=== PATIENT | male | born 1980 | race Two or more races ===

== ENCOUNTER 2020-11-06 06:59 | Outpatient (REF) | payer OTHER, SELFPAY ==
[2020-11-06 07:39] LABS: MANUAL DIFF FLAG NO
[2020-11-06 07:44] LABS: Basophils Percent Auto 0.1 % (0-2); Eosinophils Absolute Auto 0.2 X10*3/uL (0.0-0.4); Eosinophils Percent Auto 2.3 % (0-4); Hematocrit 43.2 % (42-52); Imm Gran Abs Auto 0.02 X10*3/uL (0.00-0.03); Imm Gran Pct Auto 0.3 % (0.0-0.4); Lymphocytes Absolute Auto 2.6 X10*3/uL (1.2-4.9); Lymphocytes Percent Auto 35.3 % (20-40); Mean Corpuscular HGB Conc 34.7 g/dl (31.0-36.0); Mean Corpuscular Hemoglobin 32.3 pg (27.0-33.0); Mean Corpuscular Volume 92.9 fL (80-98); Monocytes Absolute Auto 0.7 X10*3/uL (0.1-1.2); Monocytes Percent Auto 8.9 % (2-11); Neutrophils Absolute Auto 3.9 X10*3/uL (2.0-8.3); Neutrophils Percent Auto 53.1 % (45-73); Platelet Count 226 X10*3/uL (160-400); Red Blood Count 4.65 X10*6/uL (4.60-5.80); Red Cell Distribution Width 12.2 % (11.0-16.0); White Blood Count 7.4 X10*3/uL (4.8-10.8)
[2020-11-06 08:03] LABS: Alanine Aminotransferase 37 U/L (0-40); Albumin Level 4.3 g/dL (3.5-5.0); Alkaline Phosphatase 89 U/L (39-117); Anion Gap 13 (12-20); Aspartate Amino Transferase 23 U/L (5-37); Bilirubin Total 0.3 mg/dL (0.0-1.0); Blood Urea Nitrogen 14 mg/dL (9-16); C Reactive Protein 0.14 mg/dL (< or = 0.50); Calcium 9.3 mg/dL (8.4-10.2); Carbon Dioxide 26 mmol/L (22-29); Chloride 104 mmol/L (96-108); Cholesterol 147 mg/dL; Estimated Glomerular Filt Rate > 60; Glucose Fasting 108 mg/dL (60-99); HDL Cholesterol 33 mg/dL; LDL Cholesterol Calculated 69 mg/dl; Potassium 4.1 mmol/L (3.3-5.1); Sodium 139 mmol/L (135-145); Total Protein 7.3 g/dL (6.5-8.0); Triglycerides 227 mg/dL
[2020-11-06 08:07] LABS: D Dimer < 200 NG/ML
[2020-11-06 08:32] LABS: Thyroid Stimulating Hormone 1.91 uIU/mL (0.32-4.0)
== END 2020-11-06 07:00 | disposition home or self-care (01) ==
LOC: HO.LAB 06:59
PROVIDERS: PCP Internal Medicine; Visit Provider Internal Medicine
DX: E78.00 Pure hypercholesterolemia, unspecified (principal); I10 Essential (primary) hypertension; R00.2 Palpitations
CPT/HCPCS: 36415; 80053; 80061; 84443; 85025; 85379; 86140

== ENCOUNTER → 2020-12-09 07:22 | Outpatient (REF) | payer OTHER, SELFPAY ==
--- NOTE | 2020-12-09 07:35 | CA_ITS ---
Transthoracic Echocardiogram Patient (Last, First, Middle): Anjel Tracy J Gender: Male Date of : 1980 Age: 40 Procedure Date: 12/09/2020 Procedure Type: Transthoracic Echocardiogram Location: OP Height: 165.1 cm Weight: 119.3 kg BSA: 2.22 m2 Heart Rate: bpm BP: 120 / 86 mmHg Rip Sawyer: Referring MD: David Iqbal MD Symptoms: R00.2 PALP,I10 HTN Study Quality: Good ECG Rhythm: Sinus Conclusions: - The left ventricular systolic function is normal. The visually estimated ejection fraction is between 60-65%. - No obvious valvular pathology seen on this study. Findings Procedure Information The patient receives contrast. Left Ventricle Normal left ventricular cavity size. There is normal left ventricular wall thickness. The left ventricular systolic function is normal. The visually estimated ejection fraction is between 60-65%. There is no evidence of regional wall motion abnormalities. Diastolic function is normal for age. Right Ventricle Normal right ventricular cavity size and systolic function. Atria The left atrium is normal in size. The right atrium is normal in size. Aortic Valve There is a normal trileaflet aortic valve. There is no aortic valve stenosis. There is no aortic valve regurgitation. Mitral Valve The mitral valve appears normal. There is trace mitral valve regurgitation. There is no mitral valve stenosis. Pulmonic Valve The pulmonic valve was not well visualized. Tricuspid Valve Normal tricuspid valve structure. There is trace tricuspid valve regurgitation. The pulmonary artery systolic pressure is normal. Great Vessels The aortic annulus, sinuses of valsalva, and asc aorta are normal in size. Venous The inferior vena cava is normal in size and collapses greater than 50% with inspiration. Pericardium/Pleural There is no evidence of pericardial effusion. Prior Study Comparison No prior study available for comparison. Recommendations, Care & Conclusions No obvious valvular pathology seen on this study. Measurements 2D Linear Measurements RVIDd: 3.78 RVIDd Index: 1.70 IVSd: 0.86 0.6-0.9/0.6-1.0 cm LVIDd: 4.87 3.9-5.3/4.2-5.9 cm LVIDd Index: 2.19 2.4-3.2/2.2-3.1 cm/m2 LVIDs: 3.14 2.0-3.6 cm LVPWd: 1.32 0.7-1.1 cm Ao Root: 3.20 2.1-3.5 cm LA Diam: 4.20 2.7-3.8/3.0-4.0 cm LAIDs Index: 1.89 1.5-2.3 cm/m2 LV Mass: 244.45 67-162/88-224 g LV Mass Index: 110.11 43-95/49-115 g/m2 LVOT Diam: 2.30 3.0+(-)1.3 cm 2D Systolic Function EF 4C: 61.00 >55% EF 2C: 59.20 >55% EF BiP: 62.30 >55% Mitral Valve MV Pk E: 0.77 MV PK A: 0.59 MV Decel Time: 216.00 E/A: 1.30 E'Lateral: 8.05 E'Medial: 6.53 E/E' Med: 11.80 E/E' Lat: 9.60 Aortic Valve AoV Pk Rigoberto: 1.19 AoV Mn Rigoberto: 0.84 AoV VTI: 0.22 AoV Pk Grad: 6.00 Aov Mn Grad: 3.00 ODIN Cont.VTI: 3.33 LVOT LVOT Pk Rigoberto: 0.99 LVOT Mn Rigoberto: 0.67 LVOT VTI: 0.18 LVOT Pk Grad: 4.00 LVOT Mn Grad: 2.00 LVOT Diam: 2.30 LVOT Area: 4.15 Diastolic Function MV Pk E: 0.77 MV Pk A: 0.59 E/A: 1.30 E'Medial: 6.53 E/E' Med: 11.80 E' Laterial: 8.05 E/E' Lat: 9.60 Tricuspid Valve RA Press: 3.00 Great Vessels Aorta Ao Root-2D: 3.20 2.0-3.7 cm Ao Asc: 3.10 2.1-3.4 cm Ao Arch: 2.30 Updated in Other Vendor System with Status of Final Migel Lee MD electronically signed on 12/10/2020 12:05:43 PM with status of Final
== END ==
LOC: HO.SL 07:22
PROVIDERS: PCP Internal Medicine; Visit Provider Internal Medicine
DX: G47.33 Obstructive sleep apnea (adult) (pediatric) (principal); R06.83 Snoring; R00.2 Palpitations; I10 Essential (primary) hypertension
CPT/HCPCS: 93306; 95806; Q9957

== ENCOUNTER → 2021-01-20 13:15 | Outpatient (BNVA) | payer OTHER, SELFPAY | PROVIDERS: PCP Internal Medicine; Referring Provider Internal Medicine; Visit Provider Internal Medicine Cardiovascular Disease ==

== ENCOUNTER → 2021-02-03 11:12 | Outpatient (REF) | payer OTHER, SELFPAY ==
--- NOTE | 2021-02-03 11:18 | HM_ITS ---
Total monitoring time 14 days. Underlying rhythm is sinus. Minimum heart rate 53/Min. Maximum 163/Min. Average 86/Min. About 27% of the time, right greater than 100/Min. No atrial fibrillation or flutter or pauses or AV blocks. Rare premature supraventricular contractions with a burden of only 0.01%. Some short runs noted with longest episode being 7 beats. There was mention of chest discomfort and palpitations, skipping but not associated with any specific findings on the Holter. MTDD
== END ==
LOC: HO.CARD 11:12
PROVIDERS: Visit Provider Internal Medicine Cardiovascular Disease
DX: R00.2 Palpitations (principal)
CPT/HCPCS: 93225; 93246

== ENCOUNTER → 2021-03-24 12:40 | Outpatient (BNVA) | payer OTHER, SELFPAY | PROVIDERS: PCP Internal Medicine; Referring Provider Internal Medicine; Visit Provider Internal Medicine Cardiovascular Disease ==

== ENCOUNTER 2021-04-17 09:51 | Outpatient (REF) | payer OTHER, SELFPAY ==
[2021-04-17 11:29] LABS: Anion Gap 9 (12-20); Blood Urea Nitrogen 13 mg/dL (9-16); Calcium 9.4 mg/dL (8.4-10.2); Carbon Dioxide 29 mmol/L (22-29); Chloride 106 mmol/L (96-108); Estimated Glomerular Filt Rate > 60; Glucose Random 124 mg/dL (60-115); Sodium 140 mmol/L (135-145)
== END 2021-04-17 09:52 | disposition home or self-care (01) ==
LOC: HO.LAB 09:51
PROVIDERS: PCP Internal Medicine; Visit Provider Internal Medicine
DX: I10 Essential (primary) hypertension (principal)
CPT/HCPCS: 36415; 80048

== ENCOUNTER → 2021-05-02 07:55 | Outpatient (REF) | payer OTHER, SELFPAY ==
--- NOTE | 2021-05-02 08:01 | CA_ITS ---
Acquisition Time: 2021-05-02 07:58:35 Total Exercise Time: 00:08:14 Test Indications: CP Medications: SEE CHART Protocol: TANISHA Max HR: 169 BPM 93% of Pred: 180 BPM Max BP: 148/080 mmHG Max Work Load: 10.1 METS Exercise stress test with exercise 8 min 14 sec of Tanisha protocol, with mild sob, no chest discomfort, with isolated PVC, one ventricular triplet at 7 min of exercise, one ventricular cuplet in recovery, with normotensive response to exercise, without EKG changes meeting criteria for ischemia. Test reviewed with Dr Leal. Referred By: Nilesh Leal Overread By: LINDA BAHENA
== END ==
LOC: HO.CARD 07:55
PROVIDERS: PCP Internal Medicine; Visit Provider Internal Medicine Cardiovascular Disease
DX: R07.89 Other chest pain (principal)
CPT/HCPCS: 93017

== ENCOUNTER 2021-05-29 14:57 | Outpatient (REF) | payer OTHER, SELFPAY ==
[2021-05-29 15:43] LABS: Influenza A PCR NEGATIVE (Negative); Influenza B PCR NEGATIVE (Negative); Resp Syncy Virus RNA Qual PCR NEGATIVE (Negative); SARS COV2 PCR INHOUSE NEGATIVE (Negative)
== END 2021-05-29 14:58 | disposition home or self-care (01) ==
LOC: HO.LNP 14:57
PROVIDERS: Visit Provider Internal Medicine
DX: Z20.822 Contact with and (suspected) exposure to COVID-19 (principal); R51.9 Headache, unspecified; R50.9 Fever, unspecified
CPT/HCPCS: 0241U

== ENCOUNTER 2021-06-16 15:11 | Outpatient (REF) | payer OTHER, SELFPAY ==
[2021-06-16 15:33] LABS: Strep A Nucleic Acid Negative (Negative)
== END 2021-06-16 15:12 | disposition home or self-care (01) ==
LOC: HO.LNP 15:11
PROVIDERS: Visit Provider Internal Medicine
DX: J02.9 Acute pharyngitis, unspecified (principal); R05.9 Cough, unspecified
CPT/HCPCS: 87071; 87147; 87651

== ENCOUNTER 2021-06-22 17:45 | Emergency (ER) | payer OTHER, SELFPAY ==
[2021-06-22 21:14] VITALS: BP 139/92; PULSE 107; RESP 18; TEMP 36.6; O2SAT 97; BMI 44.1
== END 2021-06-23 06:36 | disposition left against medical advice (07) ==
PROVIDERS: Emergency Provider Emergency Medicine; PCP Internal Medicine
DX: J02.0 Streptococcal pharyngitis (principal)
CPT/HCPCS: 99281; 99282

== ENCOUNTER → 2021-06-30 13:46 | Outpatient (BNVA) | payer OTHER, SELFPAY | PROVIDERS: PCP Internal Medicine; Referring Provider Internal Medicine; Visit Provider Nurse Practitioner Family | DX: I10 Essential (primary) hypertension (principal); R00.2 Palpitations; R06.81 Apnea, not elsewhere classified; G47.33 Obstructive sleep apnea (adult) (pediatric) | CPT/HCPCS: 93005 ==

== ENCOUNTER → 2021-07-11 20:00 | Outpatient (REF) | payer OTHER, SELFPAY | LOC: HO.SL 20:00 | PROVIDERS: Visit Provider Internal Medicine Cardiovascular Disease | DX: G47.33 Obstructive sleep apnea (adult) (pediatric) (principal) | CPT/HCPCS: 95811 ==

== ENCOUNTER → 2021-08-25 10:22 | Outpatient (REF) | payer OTHER, SELFPAY ==
--- NOTE | 2021-08-25 10:30 | CA_ITS ---
Transthoracic Echocardiogram Patient (Last, First, Middle): Anjel Tracy J Gender: Male Date of : 1980 Age: 40 Procedure Date: 08/25/2021 Procedure Type: Transthoracic Echocardiogram Location: OP Height: 165.1 cm Weight: 120.2 kg BSA: 2.23 m2 Heart Rate: bpm BP: 134 / 82 mmHg Broadcast Program Director: OSIRIS Referring MD: Alisa Acevedo ENGINEER SECOND ASSISTANTLaith Symptoms: I10 - Essential (primary) hypertension Study Quality: Fair ECG Rhythm: Sinus Conclusions: - The left ventricular systolic function is normal. The calculated ejection fraction is 63% by biplane method. - No obvious valvular pathology seen on this study. Findings Left Ventricle Normal left ventricular cavity size. There is mildly increased left ventricular wall thickness. The left ventricular systolic function is normal. The calculated ejection fraction is 63% by biplane method. There is no evidence of regional wall motion abnormalities. Diastolic function is normal for age. Right Ventricle Normal right ventricular cavity size and systolic function. Atria Both atria are normal in size. Aortic Valve There is a normal trileaflet aortic valve. There is no aortic valve stenosis. There is no aortic valve regurgitation. Mitral Valve The mitral valve appears normal. There is no mitral valve regurgitation. There is no mitral valve stenosis. Pulmonic Valve The pulmonic valve was not well visualized. Tricuspid Valve There is trace tricuspid valve regurgitation. The pulmonary artery systolic pressure is normal. Great Vessels The aortic annulus, sinuses of valsalva, and asc aorta are normal in size. Venous The inferior vena cava is normal in size and collapses greater than 50% with inspiration. Pericardium/Pleural There is no evidence of pericardial effusion. Prior Study Comparison No significant change compared to prior study dated: 12/09/2020. Recommendations, Care & Conclusions No obvious valvular pathology seen on this study. Measurements 2D Linear Measurements IVSd: 1.40 0.6-0.9/0.6-1.0 cm LVIDd: 4.59 3.9-5.3/4.2-5.9 cm LVIDd Index: 2.06 2.4-3.2/2.2-3.1 cm/m2 LVIDs: 2.69 2.0-3.6 cm LVPWd: 1.34 0.7-1.1 cm Ao Root: 3.60 2.1-3.5 cm LA Diam: 3.80 2.7-3.8/3.0-4.0 cm LAIDs Index: 1.70 1.5-2.3 cm/m2 LV Mass: 309.02 67-162/88-224 g LV Mass Index: 138.57 43-95/49-115 g/m2 LVOT Diam: 2.40 3.0+(-)1.3 cm 2D Systolic Function EF 4C: 62.70 >55% EF 2C: 64.40 >55% EF BiP: 63.10 >55% Mitral Valve MV Pk E: 0.74 MV PK A: 0.63 MV Decel Time: 202.00 E/A: 1.20 E'Lateral: 8.27 E'Medial: 7.18 E/E' Med: 10.30 E/E' Lat: 9.00 PHT: 59.00 MVA PHT: 3.73 Decel [place]: 3.66 Aortic Valve AoV Pk Rigoberto: 1.06 AoV Mn Rigoberto: 0.78 AoV VTI: 0.21 AoV Pk Grad: 4.00 Aov Mn Grad: 3.00 ODIN Cont.VTI: 2.84 LVOT LVOT Pk Rigoberto: 0.70 LVOT Mn Rigoberto: 0.49 LVOT VTI: 0.13 LVOT Pk Grad: 2.00 LVOT Mn Grad: 1.00 LVOT Diam: 2.40 LVOT Area: 4.52 Diastolic Function MV Pk E: 0.74 MV Pk A: 0.63 E/A: 1.20 E'Medial: 7.18 E/E' Med: 10.30 E' Laterial: 8.27 E/E' Lat: 9.00 Right Ventricle TAPSE (mm): 23.40 TVS' Rigoberto: 14.80 Tricuspid Valve TR Pk Rigoberto: 1.13 TR Pk Grad: 5.00 Great Vessels Aorta Ao Root-2D: 3.60 2.0-3.7 cm Ao Asc: 3.40 2.1-3.4 cm Ao Arch: 2.60 Updated in Other Vendor System with Status of Final Migel Lee MD electronically signed on 08/25/2021 2:17:37 PM with status of Final
== END ==
LOC: HO.CARD 10:22
PROVIDERS: Visit Provider Nurse Practitioner Family
DX: R07.89 Other chest pain (principal); R00.2 Palpitations; I10 Essential (primary) hypertension; G47.33 Obstructive sleep apnea (adult) (pediatric); R94.31 Abnormal electrocardiogram [ECG] [EKG]
CPT/HCPCS: 93306

== ENCOUNTER 2021-08-25 12:23 | Outpatient (REF) | payer OTHER, SELFPAY ==
[2021-08-25 14:34] LABS: Anion Gap 11 (12-20); Blood Urea Nitrogen 9 mg/dL (9-16); C Reactive Protein 0.19 mg/dL (< or = 0.50); Calcium 9.5 mg/dL (8.4-10.2); Carbon Dioxide 28 mmol/L (22-29); Chloride 105 mmol/L (96-108); D Dimer High Sensitivity < 150 NG/ML; Estimated Glomerular Filt Rate > 60; Glucose Random 98 mg/dL (60-115); Potassium 3.8 mmol/L (3.3-5.1); Sodium 140 mmol/L (135-145)
== END 2021-08-25 12:24 | disposition home or self-care (01) ==
LOC: HO.10HDL 12:23
PROVIDERS: Visit Provider Internal Medicine
DX: I10 Essential (primary) hypertension (principal); R06.02 Shortness of breath; G47.33 Obstructive sleep apnea (adult) (pediatric)
CPT/HCPCS: 36415; 80048; 85379; 86140

== ENCOUNTER → 2021-10-06 13:12 | Outpatient (BNVA) | payer OTHER, SELFPAY | PROVIDERS: PCP Internal Medicine; Visit Provider Internal Medicine | DX: Z13.89 Encounter for screening for other disorder (principal) ==

== ENCOUNTER → 2021-10-20 12:04 | Outpatient (BNVA) | payer OTHER, SELFPAY | PROVIDERS: PCP Internal Medicine; Referring Provider Internal Medicine; Visit Provider Internal Medicine Cardiovascular Disease | DX: Z13.89 Encounter for screening for other disorder (principal) ==

== ENCOUNTER → 2021-11-20 06:50 | Outpatient (REF) | payer OTHER, SELFPAY ==
--- NOTE | 2021-11-20 06:52 | HM_ITS ---
Conclusion: 1. Patient was monitored for total period of 6 days and 18 hours 2. Baseline was normal sinus rhythm with average heart of 84 beats per minute 3. No significant pauses or bradycardia noted 4. Rare PACs noted 5. No patient reported events MTDD
== END ==
LOC: HO.CARD 06:50
PROVIDERS: Visit Provider Internal Medicine Cardiovascular Disease
DX: R07.89 Other chest pain (principal); R00.2 Palpitations
CPT/HCPCS: 93242

== ENCOUNTER 2022-01-15 14:05 | Outpatient (REF) | payer OTHER, SELFPAY ==
[2022-01-15 15:13] LABS: Anion Gap 14 (12-20); Blood Urea Nitrogen 17 mg/dL (9-16); Calcium 9.6 mg/dL (8.4-10.2); Carbon Dioxide 27 mmol/L (22-29); Chloride 106 mmol/L (96-108); Estimated Glomerular Filt Rate > 60; Glucose Random 142 mg/dL (60-115); Magnesium 2.1 mg/dL (1.6-2.6); Potassium 3.7 mmol/L (3.3-5.1); Sodium 143 mmol/L (135-145)
[2022-01-15 15:38] LABS: Free T4 (Free Thyroxine) 0.84 ng/dL (0.71-1.85)
== END 2022-01-15 14:06 | disposition home or self-care (01) ==
LOC: HO.LAB 14:05
PROVIDERS: PCP Internal Medicine; Visit Provider Internal Medicine
DX: I10 Essential (primary) hypertension (principal); R00.2 Palpitations
CPT/HCPCS: 36415; 80048; 83735; 84439

== ENCOUNTER 2022-03-16 10:00 | Outpatient (RCR) | payer OTHER, SELFPAY ==
[2022-03-13 08:06] VITALS: BP 133/83; PULSE 71; O2SAT 96
--- NOTE | 2022-03-13 15:13 | MHC.PT.EP ---
[facility] [place] Office [place] Office [place] Office [address] Bijan Peterson [address] [phone] F: [phone] F: [phone] F: [phone] F: [phone] Physical Therapy Plan of Care Date of Evaluation: Date of Surgery: Diagnosis: LEFT SI DYSFUNCTION Assessment: 41 YO MALE REF TO PT FOR LEFT SI DYSFUNCTION- ACUTE ONSET ON 03/08/22. 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 OBJECTIVE FINDINGS: DECR TRUNK AND HIP MOB, DECR POSTURAL AWARENESS, LIMITED FUNCT SQUAT, (+) SOFT TISSUE TENSION-> ESPEC TIGHT THOR PS MM, AND STABBING PAIN IN HIS LEFT SI Jt/ GLUTE AREA. FUNCTIONAL LIMITATIONS INCLUDE DECR ABILITY TO SQUAT, MOVE FAST, WALK FAST, BENDING/ LIFTING, AND REACHING/ STRETCHING. Pt IS A GOOD PT CANDIDATE TO ADDRESS THE ABOVE FINDINGS-> EASE SOFT TISSUE IRRIT, PAIN MGMT, DEV A PROGRESSIVE HEP AND SELF-SX MGMT TECHN TO ASSIST Pt IN HIS GOAL OF RTW/ REG DUTY. Frequency and Duration: The patient will be seen 2 x WK X 4 wks Short Term Goals: *DECR Pt'S LEFT LS/SI Jt PAIN TO 2-3/10 *Pt INDEP W POSTURAL SELF CORRECT TECHN AND DEMON PROPER BODY MECH W 2:2 SIMUL WORK TASKS TO REDUCE THORACOLS TISSUE TENSION *IMPROVE HIP FLEXIB -> FUNCTIONAL SQUAT [facility] Goals: *Pt INDEP W PROGR HEP AND SELF SX MGMT TECHN *Pt RESUME REG ADLs AND RTW EVIDENT IN IMPROVED OSWESTRY SCORE *Pt DEMON GAIT (REGULAR, FAST PACE) ON TREADMILL, W/O EXACERBATION OF Lt SI Jt SXS Treatment Plan: Modalities to reduce pain, spasms and effusion. Manual therapy to restore motion and function. Therapeutic exercise to improve strength and flexibility. Neuromuscular re-education for posture and balance. Therapeutic activities to return to functional activities of daily living. Electronically signed by: Karo Aquino,PT Please sign and return to therapist. Thank you for your referral.
--- NOTE | 2022-03-26 13:14 | MHC.PT.DC ---
[facility] [place] Office [place] Office [place] Office [address] Bijan Peterson [address] [phone] F: [phone] F: [phone] F: [phone] F: [phone] Physical Therapy Discharge Report Diagnosis: LEFT SI DYSFUNCTION Date of Surgery: Date of Evaluation: 03/13/22 Date of Discharge: 03/26/22 Treatments to Date: 2 Cancellations to Date: 3 No Shows to Date: Discharge Status: Achieved Goals Improved Function Patient Elected to Stop Discharge Summary: Pt PHONED AND NOTED HE WAS FEELING BETTER AND CURRENTLY HAS NO TIME FOR PT- HE REQUESTED D/C AT THIS TIME. DUE TO THE PHONE CALL D/C, WE WERE UNABLE TO PERFORM A FORMAL D/C ASSESSMENT . Electronically signed by: Karo Aquino,PT Please sign and return to therapist. Thank you for your referral.
== END 2022-03-26 13:16 | disposition home or self-care (01) ==
LOC: HO.PT 10:00
PROVIDERS: PCP Internal Medicine; Visit Provider Internal Medicine
DX: M53.3 Sacrococcygeal disorders, not elsewhere classified (principal)
CPT/HCPCS: 97110; 97140; 97162

== ENCOUNTER 2022-04-27 11:32 | Outpatient (REF) | payer OTHER, SELFPAY ==
[2022-04-27 13:38] LABS: MANUAL DIFF FLAG NO
[2022-04-27 13:41] LABS: Basophils Percent Auto 0.1 % (0-2); Eosinophils Absolute Auto 0.1 X10*3/uL (0.0-0.4); Eosinophils Percent Auto 0.9 % (0-4); Hematocrit 43.3 % (42.0-52.0); Hemoglobin 15.1 g/dl (14.0-18.0); Imm Gran Abs Auto 0.02 X10*3/uL (0.00-0.03); Imm Gran Pct Auto 0.2 % (0.0-0.4); Lymphocytes Absolute Auto 2.1 X10*3/uL (1.2-4.9); Lymphocytes Percent Auto 24.6 % (20-40); Mean Corpuscular HGB Conc 34.9 g/dl (31.0-36.0); Mean Corpuscular Hemoglobin 31.7 pg (27.0-33.0); Monocytes Absolute Auto 0.7 X10*3/uL (0.1-1.2); Monocytes Percent Auto 8.3 % (2-11); Neutrophils Absolute Auto 5.6 x10*3/uL (2.0-8.3); Neutrophils Percent Auto 65.9 % (45-73); Platelet Count 235 X10*3/uL (160-400); Red Blood Count 4.76 X10*6/uL (4.60-5.80); Red Cell Distribution Width 12.3 % (11.0-16.0); White Blood Count 8.5 X10*3/uL (4.8-10.8)
[2022-04-27 13:54] LABS: Estimated Average Glucose 128 mg/dL; Hemoglobin A1c % 6.1 %
[2022-04-27 13:55] LABS: Alanine Aminotransferase 33 U/L (0-40); Albumin Level 4.5 g/dL (3.5-5.0); Alkaline Phosphatase 70 U/L (39-117); Anion Gap 16 (12-20); Aspartate Amino Transferase 23 U/L (5-37); Bilirubin Total 0.4 mg/dL (0.0-1.0); Blood Urea Nitrogen 17 mg/dL (9-16); Calcium 9.5 mg/dL (8.4-10.2); Carbon Dioxide 25 mmol/L (22-29); Chloride 102 mmol/L (96-108); Cholesterol 155 mg/dL; Estimated Glomerular Filt Rate > 60; Glucose Fasting 103 mg/dL (60-99); HDL Cholesterol 40 mg/dL; LDL Cholesterol Calculated 97 mg/dl; Potassium 3.9 mmol/L (3.3-5.1); Sodium 139 mmol/L (135-145); Total Protein 7.6 g/dL (6.5-8.0); Triglycerides 94 mg/dL
== END 2022-04-27 11:33 | disposition home or self-care (01) ==
LOC: HO.10HDL 11:32
PROVIDERS: Visit Provider Internal Medicine
DX: Z00.00 Encounter for general adult medical examination without abnormal findings (principal); R73.03 Prediabetes
CPT/HCPCS: 36415; 80053; 80061; 83036; 85025

== ENCOUNTER → 2022-08-05 13:27 | Outpatient (BNVA) | payer OTHER, SELFPAY | PROVIDERS: PCP Internal Medicine; Visit Provider Internal Medicine | DX: Z13.89 Encounter for screening for other disorder (principal) ==

== ENCOUNTER 2022-08-11 10:10 | Outpatient (REF) | payer OTHER, SELFPAY ==
[2022-08-11 11:22] LABS: Estimated Average Glucose 128 mg/dL; Hemoglobin A1c % 6.1 %
[2022-08-11 12:02] LABS: Anion Gap 12 (12-20); Blood Urea Nitrogen 14 mg/dL (9-16); Calcium 9.2 mg/dL (8.4-10.2); Carbon Dioxide 26 mmol/L (22-29); Chloride 104 mmol/L (96-108); Estimated Glomerular Filt Rate > 60; Glucose Random 155 mg/dL (60-115); Potassium 3.4 mmol/L (3.3-5.1); Sodium 139 mmol/L (135-145)
== END 2022-08-11 10:11 | disposition home or self-care (01) ==
LOC: HO.10HDL 10:10
PROVIDERS: Visit Provider Internal Medicine
DX: I10 Essential (primary) hypertension (principal); R73.03 Prediabetes
CPT/HCPCS: 36415; 80048; 83036

== ENCOUNTER 2022-11-30 10:04 | Outpatient (REF) | payer OTHER, SELFPAY ==
[2022-11-30 11:43] LABS: Estimated Average Glucose 126 mg/dL
[2022-11-30 11:58] LABS: Alanine Aminotransferase 30 U/L (0-40); Albumin Level 4.3 g/dL (3.5-5.0); Alkaline Phosphatase 72 U/L (39-117); Anion Gap 10 (12-20); Aspartate Amino Transferase 18 U/L (5-37); Bilirubin Total 0.5 mg/dL (0.0-1.0); Blood Urea Nitrogen 12 mg/dL (9-16); Calcium 9.3 mg/dL (8.4-10.2); Carbon Dioxide 28 mmol/L (22-29); Chloride 107 mmol/L (96-108); Cholesterol 147 mg/dL; Estimated Glomerular Filt Rate > 60; Glucose Fasting 115 mg/dL (60-99); HDL Cholesterol 37 mg/dL; LDL Cholesterol Calculated 92 mg/dl; Potassium 3.7 mmol/L (3.3-5.1); Sodium 141 mmol/L (135-145); Total Protein 7.2 g/dL (6.5-8.0); Triglycerides 94 mg/dL
== END 2022-11-30 10:05 | disposition home or self-care (01) ==
LOC: HO.10HDL 10:04
PROVIDERS: Visit Provider Internal Medicine
DX: I10 Essential (primary) hypertension (principal); E78.00 Pure hypercholesterolemia, unspecified; R73.01 Impaired fasting glucose
CPT/HCPCS: 36415; 80053; 80061; 83036

== ENCOUNTER 2023-01-27 12:03 | Outpatient (REF) | payer OTHER, SELFPAY ==
--- NOTE | ~2023-01-27 | XR_ITS ---
EXAMINATION: XR FOOT, LEFT CLINICAL INFORMATION: Bilateral foot pain COMPARISON: Same-day right foot TECHNIQUE: AP, lateral, and oblique views of the left foot. FINDINGS: The bones are intact. No fracture. Alignment is anatomic. Joint spaces are maintained. Tiny calcification at the insertion of the Achilles tendon. XR/XR foot LT min 3V IMPRESSION: Tiny calcification at the insertion of the Achilles tendon.
--- NOTE | ~2023-01-27 | XR_ITS ---
EXAMINATION: XR FOOT, RIGHT CLINICAL INFORMATION: Bilateral foot pain COMPARISON: Same-day left foot TECHNIQUE: AP, lateral, and oblique views of the right foot. FINDINGS: The bones are intact. No fracture. Alignment is anatomic. Minimal degenerative change of the first metatarsophalangeal joint. Tiny Achilles enthesophyte. XR/XR foot RT min 3V IMPRESSION: Minimal degenerative change of the first metatarsophalangeal joint.
== END 2023-01-27 12:04 | disposition home or self-care (01) ==
LOC: HO.XRAY 12:03
PROVIDERS: PCP Internal Medicine; Visit Provider Internal Medicine
DX: M24.174 Other articular cartilage disorders, right foot (principal); M65.872 Other synovitis and tenosynovitis, left ankle and foot; M76.61 Achilles tendinitis, right leg
CPT/HCPCS: 73630

== ENCOUNTER 2023-01-27 12:36 | Outpatient (AMB) | payer OTHER, SELFPAY ==
--- NOTE | 2023-01-27 13:15 | A.OFFVIS_ITS ---
Intake Vital Signs 01/27/23 13:16 Height 5 ft 5 in Weight 266 lb BMI 44.3 BP 110/64 Blood Pressure Location Lt radial Position Sitting Pulse 76 Pulse Source Pulse Oximeter Pulse Oximetry (%) 96 Oxygen Delivery Method Room Air Intake Visit Reasons: Obstructive sleep apnea Intake Note: pt is here for follow up of JONO, he states he cannot maintain a steady sleep,and once up he stays up. Allergies No Known Allergies Allergy (Verified 01/27/23 13:23) Medication List - Last Reconciled 01/27/23 by Behzad Moralez MD amlodipine 5 mg PO DAILY atorvastatin 10 mg PO DAILY buspirone 10 mg PO BID PRN hydrochlorothiazide 25 mg PO DAILY zolpidem 10 mg PO BEDTIME Do you need a note to return to daycare/school/sports/work: No HPI Obstructive sleep apnea HPI Details THIS 42 YEARS OLD GENTLEMAN GROSSLY OBESE AND KNOWN CASE OF OBSTRUCTIVE SLEEP APNEA, HE IS HERE FOR HIS. 6 MONTHS FOLLOW-UP HE IS A REGULAR USER OF CPAP, AND IS BENEFITING. HIS MAIN ISSUE IS THAT HE CANNOT SLEEP MORE THAN 4-5 HOURS. LATELY HE WAS PRESCRIBED ZOLPIDEM. 10 MG BY HIS PCP HE TOOK 1 NIGHT AND SLEPT MORE THAN 7 HOURS, BUT COMPLAINS THAT HE HAD HANGOVER IN THE MORNING. SO HE STOPPED USING ZOLPIDEM. WEIGHT ALFARO HAS NOT MADE ANY PROGRESS, RATHER HAS PUT ON A FEW LB SINCE LAST VISIT. HIS PROBLEM IS THAT HE CANNOT WALK MUCH SHOULD. HE HAS NOT JOINED ANY WEIGHT MANAGEMENT PROGRAM. [facility] Medical History Acid reflux HTN (hypertension) Hypercholesteremia Insomnia Morbid obesity Obstructive sleep apnea Surgical History No pertinent past surgical history Family History Father CAD (coronary artery disease) Mother Hypertension Sister Multiple sclerosis Social History Alcohol intake: current Alcohol intake frequency: holidays/special occasions only Patient Tobacco Use Status: Never used Tobacco Review of Systems Const All systems reviewed & are unremarkable except as noted in HPI and below Eyes Reports no additional complaints ENT Reports no additional complaints Card Denies chest pain, Denies irregular heart rhythm and Reports leg edema (Improved after taking HCTZ) Resp Reports no additional complaints GI Reports heartburn (Controlled) Reports no additional complaints Musc Reports no additional complaints Skin/Breast Reports system reviewed and no additional complaints, except as documented Neuro Reports no additional complaints Endo Reports no additional complaints Darius/Lymph Reports no additional complaints Aller/Immun Reports no additional complaints Physical Exam Vital Signs: Last Vital Signs Pulse 76 01/27/23 13:16 BP 110/64 01/27/23 13:16 Pulse Ox 96 01/27/23 13:16 Oxygen Delivery Method Room Air 01/27/23 13:16 BMI result Body Mass Index 44.3 Const Other: This gentleman is morbidly obese with very round face, and short neck. General: comfortable, no acute distress, alert and awake Orientation/consciousness: patient oriented x3 HEENT Head: Yes normal to inspection General nose exam: No nasal polyps present and No nasal discharge present Face and sinus: Yes sinuses nontender Mouth: oropharynx abnormals (His chin is slightly regressed, tongue is convex, oropharynx crowded,MP-4) Throat: Yes posterior oropharynx normal Eyes General: appearance normal, both eyes and all related structures Neck Neck: Yes normal visual inspection, Yes no lymphadenopathy, Yes trachea midline, Yes no JVD and Yes other (Neck circumference 19 in) Thyroid: Thyroid normal Chest Chest palpation & inspection: normal inspection of the chest, normal palpation of entire chest wall and no tenderness Resp Effort & Inspection: normal respiratory effort Auscultation: clear to auscultation bilaterally, no crackles and no wheezes Percussion: percussion normal Cardio Palpation: normal PMI Rate: regular rate Rhythm: regular rhythm Heart sounds: no gallops and no murmurs Peripheral pulses: Peripheral pulses 2+ throughout GI Palpation (GI): Soft to palpation, nontender, No hepatosplenomegaly present and no masses Auscultation: normal bowel sounds Back/Spine/Pelvis Thoracic/Lumbar Spine: thoracic and lumbar spine normal to inspection Skin General skin exam: no rashes or lesions noted Neuro General: patient oriented x3 and no focal motor deficits Cranial nerves: Yes CN's II-XII intact bilaterally Extrem General: Yes normal to inspection, Yes no clubbing, cyanosis or edema and Yes no calf tenderness Psych Appearance: grossly normal and well kempt Speech and movement: Normal speech and movement present Results Reviewed Results Reviewed: COMPLIANCE REPORT FOR THE LAST 30 NIGHTS IS REVIEWED. USAGE / DAYS, 97%. AVERAGE USE PER NIGHT 4 HOURS 55 MINUTES. 95TH PERCENTILE PRESSURE 15 CM. THERE IS THE MILD AIR LEAK. RESIDUAL AHI 3.8 Assessment & Plan Assessment & Plan (1) Morbid obesity: Comment: BMI= 44.3 Patient is morbidly obese, discussed with him at length about the need to lose weight. He has to increase his walking daily, and cut down the calories intake. Discussed about weight management program and he say is he cannot join. Code(s): E66.01 - Morbid (severe) obesity due to excess calories (2) Obstructive sleep apnea: Comment: Severe ,as per his Sleep study on 11/2020, He is being treated with CPAP therapy and he is very compliant. Main issue is anxiety, but he still gets about 5-6 hours of sleep at night. Encouraged to continue using CPAP regularly for at least. 5 hours every night Also explained to him some relaxation exercises. Code(s): G47.33 - Obstructive sleep apnea (adult) (pediatric) (3) Insomnia: Comment: Patient is stating that he he has difficulty in falling asleep and also in maintaining sleepy on 4 hours. 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 Discussed with him about relaxation technique. May take zolpidem 10 mg but half tablet at bedtime. Relaxation exercises before going to bed. Use 1 or 2 pillows to prop up the had side of the bed. Code(s): G47.00 - Insomnia, unspecified Coding Level of Care Code Est Pt Level 3 (96648) Diagnoses Morbid obesity E66.01 Obstructive sleep apnea G47.33 Insomnia G47.00
[2023-01-27 13:16] VITALS: BP 110/64; PULSE 76; O2SAT 96; BMI 44.3
== END 2023-01-27 13:36 | disposition home or self-care (01) ==
PROVIDERS: PCP Internal Medicine; Visit Provider Internal Medicine
DX: E66.01 Morbid (severe) obesity due to excess calories (principal); G47.33 Obstructive sleep apnea (adult) (pediatric); G47.00 Insomnia, unspecified
CPT/HCPCS: 99213

== ENCOUNTER 2023-03-11 10:21 | Outpatient (AMB) | payer OTHER, SELFPAY ==
--- NOTE | 2023-03-11 10:26 | MHC.OFFVIS ---
Intake Vital Signs 03/11/23 10:28 Height 5 ft 5 in Weight 262 lb 5.601 oz BMI 43.7 BP 136/84 Blood Pressure Location Lt brachial Position Sitting Pulse 80 Intake Visit Reasons: 1 year f/u Intake Note: 1 year follow-up with ekg feeling good Concrete Paving Supervisor Required: No Allergies No Known Allergies Allergy (Verified 01/27/23 13:23) Medication List - Last Reconciled 03/11/23 by Nilesh Leal MD amlodipine 5 mg PO DAILY atorvastatin 10 mg PO DAILY buspirone 10 mg PO BID PRN hydrochlorothiazide 25 mg PO DAILY zolpidem 10 mg PO BEDTIME HPI HPI Comments History of Present Illness Details Anjel comes for follow-up. He usually says that his blood pressure is generally well controlled. Denies any cardiac symptoms. Denies any symptoms exertional chest pain, shortness of breath, orthopnea, PND. Symptoms of palpitations have improved. He tries to stick to CPAP therapy although he said he also suffers from insomnia which reduces his amount of time on the CPAP. His also trying hard to lose weight. [facility] Medical History Insomnia Morbid obesity Obstructive sleep apnea Acid reflux Hypercholesteremia HTN (hypertension) Surgical History No pertinent past surgical history Family History Father CAD (coronary artery disease) Mother Hypertension Sister Multiple sclerosis Social History Alcohol intake: current Alcohol intake frequency: holidays/special occasions only Patient Tobacco Use Status: Never used Tobacco Review of Systems Const Denies chills, Denies fatigue, Denies fever(s), Denies frequent falls, Denies weakness, Denies weight gain and Denies weight loss ENT Denies dizziness Card Denies chest pain, Denies leg edema, Denies lightheadedness, Denies palpitations, Denies dyspnea, Denies dyspnea on exertion, Denies orthopnea and Denies other (loss of consciousness) Resp Denies cough, Denies dyspnea and Denies dyspnea on exertion GI Denies hematochezia and Denies change in stool character Musc Denies abnormal gait, Denies muscle weakness, Denies numbness, Denies radiating pain into limb and Denies tingling Neuro Denies abnormal gait, Denies dizziness, Denies frequent falls, Denies numbness, Denies tingling and Denies weakness Endo Denies fatigue and Denies palpitations Physical Exam Vital Signs: Last Vital Signs Pulse 80 03/11/23 10:28 BP 136/84 03/11/23 10:28 BMI result Body Mass Index 43.7 Const General: cooperative, comfortable, no acute distress, alert and awake Nutritional Appearance: obese morbidly obese Orientation/consciousness: patient oriented x3 Limitations: no limitations Neck Neck: Yes trachea midline, Yes supple and Yes no JVD Resp Effort & Inspection: normal respiratory effort Auscultation: clear to auscultation bilaterally Cardio Jugular venous distension: no JVD Palpation: normal PMI Rate: regular rate Rhythm: regular rhythm Heart sounds: S1 normal heart sound present, S2 normal heart sound present, no click, no gallops, no murmurs and no rubs GI Inspection: Yes obesity Auscultation: normal bowel sounds Skin General skin exam: no rashes or lesions noted Neuro General: patient oriented x3 and no focal motor deficits Extrem General: Yes no clubbing, cyanosis or edema Psych Appearance: grossly normal Affect: Anxious affect present Office Procedures EKG Details: EKG shows normal sinus rhythm with rightward axis otherwise normal EKG [id number], Complete Assessment & Plan Assessment & Plan (1) HTN (hypertension): Code(s): I10 - Essential (primary) hypertension Plan: Hypertension which is not better control since initiation of CPAP therapy and current medications importance of good blood pressure control was discussed he understands agrees. Advised to continue monitor blood pressure at home and maintain a log. Target goal blood pressure less than 130/84. Continue aggressively CPAP therapy in improving his sleep hygiene. Also participate in aggressive weight loss program was discussed. We discussed various strategies including bariatric surgery referral. He wants to do it on his own. We discussed various strategies. Will follow up in the clinic in 2 years time, sooner p.r.n.. Thank you for allowing me to partake in his care Coding Level of Care Code Est Pt Level 3 (11843) Diagnoses HTN (hypertension) I10 CPT Codes EKG - CPT: 91347-[id number], Complete ([id number])
[2023-03-11 10:28] VITALS: BP 136/84; PULSE 80; BMI 43.7
== END 2023-03-11 10:54 | disposition home or self-care (01) ==
PROVIDERS: PCP Internal Medicine; Referring Provider Internal Medicine; Visit Provider Internal Medicine Cardiovascular Disease
DX: I10 Essential (primary) hypertension (principal)
CPT/HCPCS: 93010; 99213

== ENCOUNTER → 2023-03-11 10:21 | Outpatient (BNVA) | payer OTHER, SELFPAY | PROVIDERS: PCP Internal Medicine; Referring Provider Internal Medicine; Visit Provider Internal Medicine Cardiovascular Disease | DX: I10 Essential (primary) hypertension (principal) | CPT/HCPCS: 93005 ==

== ENCOUNTER 2023-08-05 14:38 | Outpatient (AMB) | payer OTHER, SELFPAY ==
[2023-08-05 14:44] VITALS: BP 110/72; PULSE 82; O2SAT 98; BMI 44.6
--- NOTE | 2023-08-05 14:44 | MHC.OFFVIS ---
Intake Vital Signs 08/05/23 14:44 Height 5 ft 5 in Weight 267 lb 13.786 oz BMI 44.6 BP 110/72 Blood Pressure Location Lt brachial Position Sitting Pulse 82 Pulse Source Pulse Oximeter Pulse Oximetry (%) 98 Oxygen Delivery Method Room Air Intake Visit Reasons: Obstructive sleep apnea Intake Note: pt is here for follow up and JONO, doing okay with cpap, does have insomnia at times, he does have some days that he struggles. 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 HAS BEEN FOUND TO HAVE SEVERE OBSTRUCTIVE SLEEP APNEA. HE IS USING CPAP EVERY NIGHT WITH GOOD RESULTS, AND SAYS HE WAKES UP MORE REFRESHED. HE HAS DIFFICULTY IN FALLING ASLEEP SOMETIME, AND USES ZOLPIDEM 10 MG ONLY HALF TABLET P.R.N.. HAS NOT BEEN ABLE TO LOSE MUCH WEIGHT. Location 42 YEARS OLD [facility] Medical History Insomnia Morbid obesity Obstructive sleep apnea Acid reflux Hypercholesteremia HTN (hypertension) Surgical History No pertinent past surgical history Family History Father CAD (coronary artery disease) Mother Hypertension Sister Multiple sclerosis Social History Alcohol intake: current Alcohol intake frequency: holidays/special occasions only Patient Tobacco Use Status: Never used Tobacco Review of Systems Const All systems reviewed & are unremarkable except as noted in HPI and below Eyes Reports no additional complaints ENT Reports no additional complaints Card Denies chest pain, Denies irregular heart rhythm and Reports leg edema (Improved after taking HCTZ) Resp Reports no additional complaints GI Reports heartburn (Controlled) Reports no additional complaints Musc Reports no additional complaints Skin/Breast Reports system reviewed and no additional complaints, except as documented Neuro Reports no additional complaints Endo Reports no additional complaints Darius/Lymph Reports no additional complaints Aller/Immun Reports no additional complaints Physical Exam Vital Signs: Last Vital Signs Pulse 82 08/05/23 14:44 BP 110/72 08/05/23 14:44 Pulse Ox 98 08/05/23 14:44 Oxygen Delivery Method Room Air 08/05/23 14:44 BMI result Body Mass Index 44.6 Const Other: This gentleman is morbidly obese with very round face, and short neck. General: comfortable, no acute distress, alert and awake Orientation/consciousness: patient oriented x3 HEENT Head: Yes normal to inspection General nose exam: No nasal polyps present and No nasal discharge present Face and sinus: Yes sinuses nontender Mouth: oropharynx abnormals (His chin is slightly regressed, tongue is convex, oropharynx crowded,MP-4) Throat: Yes posterior oropharynx normal Eyes General: appearance normal, both eyes and all related structures Neck Neck: Yes normal visual inspection, Yes no lymphadenopathy, Yes trachea midline, Yes no JVD and Yes other (Neck circumference 19 in) Thyroid: Thyroid normal Chest Chest palpation & inspection: normal inspection of the chest, normal palpation of entire chest wall and no tenderness Resp Effort & Inspection: normal respiratory effort Auscultation: clear to auscultation bilaterally, no crackles and no wheezes Percussion: percussion normal Cardio Palpation: normal PMI Rate: regular rate Rhythm: regular rhythm Heart sounds: no gallops and no murmurs Peripheral pulses: Peripheral pulses 2+ throughout GI Palpation (GI): Soft to palpation, nontender, No hepatosplenomegaly present and no masses Auscultation: normal bowel sounds Back/Spine/Pelvis Thoracic/Lumbar Spine: thoracic and lumbar spine normal to inspection Skin General skin exam: no rashes or lesions noted Neuro General: patient oriented x3 and no focal motor deficits Cranial nerves: Yes CN's II-XII intact bilaterally Extrem General: Yes normal to inspection, Yes no clubbing, cyanosis or edema and Yes no calf tenderness Psych Appearance: grossly normal and well kempt Speech and movement: Normal speech and movement present Results Reviewed Results Reviewed: COMPLIANCE REPORT FOR THE LAST 30 NIGHTS IS REVIEWED. HE HAS USED 30/30 NIGHTS, 100%. AVERAGE USE PER NIGHT 5 HOURS 39 MINUTES. PRESSURE USED MOSTLY 14-15 CM. THERE IS SLIGHT AIR LEAK. RESIDUAL AHI 2.6 Assessment & Plan Assessment & Plan (1) Morbid obesity: Comment: BMI= 44.6 Patient remains morbidly obese, Code(s): E66.01 - Morbid (severe) obesity due to excess calories Plan: Discussed with him at length about the need to lose weight. He has to increase his walking daily, and cut down the calories intake. Discussed about weight management program and he say is he cannot join. (2) Obstructive sleep apnea: Comment: Severe ,as per his Sleep study on 11/2020, He is being treated with CPAP therapy and he is very compliant. Main issue is anxiety, but he still gets about 5-6 hours of sleep at night. Code(s): G47.33 - Obstructive sleep apnea (adult) (pediatric) Plan: Encouraged to continue using CPAP regularly for at least 5 hours every night Also explained to him some relaxation exercises. (3) Insomnia: Comment: Patient is stating that he he has difficulty in falling asleep and also in maintaining sleepy on 4 hours. 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 Code(s): G47.00 - Insomnia, unspecified Plan: Discussed with him about relaxation technique. May take zolpidem 10 mg but half tablet at bedtime PRN Relaxation exercises before going to bed. Use 1 or 2 pillows to prop up the had side of the bed. Coding Level of Care Code Est Pt Level 3 (58260) Diagnoses Morbid obesity E66.01 Obstructive sleep apnea G47.33 Insomnia G47.00
== END 2023-08-05 15:11 | disposition home or self-care (01) ==
PROVIDERS: PCP Internal Medicine; Visit Provider Internal Medicine
DX: E66.01 Morbid (severe) obesity due to excess calories (principal); G47.33 Obstructive sleep apnea (adult) (pediatric); G47.00 Insomnia, unspecified
CPT/HCPCS: 99213

== ENCOUNTER → 2023-08-05 14:38 | Outpatient (BNVA) | payer OTHER, SELFPAY | PROVIDERS: PCP Internal Medicine; Visit Provider Internal Medicine ==

== ENCOUNTER 2023-10-18 09:55 | Outpatient (REF) | payer OTHER, SELFPAY ==
[2023-10-18 10:49] LABS: MANUAL DIFF FLAG NO
[2023-10-18 11:08] LABS: Alanine Aminotransferase 38 U/L (0-40); Albumin Level 4.2 g/dL (3.5-5.0); Alkaline Phosphatase 82 U/L (39-117); Anion Gap 9 (12-20); Aspartate Amino Transferase 23 U/L (5-37); Bilirubin Direct 0.1 mg/dL (0.0-0.5); Bilirubin Total 0.3 mg/dL (0.0-1.0); Blood Urea Nitrogen 11 mg/dL (9-16); Calcium 9.3 mg/dL (8.4-10.2); Carbon Dioxide 28 mmol/L (22-29); Chloride 105 mmol/L (96-108); Estimated Glomerular Filt Rate > 60; Glucose Random 129 mg/dL (60-115); Potassium 3.2 mmol/L (3.3-5.1); Sodium 139 mmol/L (135-145); Total Protein 7.6 g/dL (6.5-8.0)
[2023-10-18 11:15] LABS: Basophils Percent Auto 0.1 % (0-2); Eosinophils Absolute Auto 0.1 X10*3/uL (0.0-0.4); Eosinophils Percent Auto 1.7 % (0-4); Hematocrit 43.9 % (42.0-52.0); Hemoglobin 15.1 g/dl (14.0-18.0); Imm Gran Abs Auto 0.02 X10*3/uL (0.00-0.03); Imm Gran Pct Auto 0.3 % (0.0-0.4); Lymphocytes Absolute Auto 2.5 X10*3/uL (1.2-4.9); Lymphocytes Percent Auto 36.7 % (20-40); Mean Corpuscular HGB Conc 34.4 g/dl (31.0-36.0); Mean Corpuscular Hemoglobin 31.1 pg (27.0-33.0); Mean Corpuscular Volume 90.3 fL (80.0-98.0); Mean Platelet Volume 9.6 fL (9.4-12.4); Monocytes Absolute Auto 0.5 X10*3/uL (0.1-1.2); Monocytes Percent Auto 7.8 % (2-11); Neutrophils Absolute Auto 3.7 x10*3/uL (2.0-8.3); Neutrophils Percent Auto 53.4 % (45-73); Platelet Count 235 X10*3/uL (160-400); Red Blood Count 4.86 X10*6/uL (4.60-5.80); Red Cell Distribution Width 12.2 % (11.0-16.0); White Blood Count 6.9 X10*3/uL (4.8-10.8)
== END 2023-10-18 09:56 | disposition home or self-care (01) ==
LOC: HO.10HDL 09:55
PROVIDERS: Referring Provider Podiatrist; Visit Provider Internal Medicine
DX: I10 Essential (primary) hypertension (principal); G47.33 Obstructive sleep apnea (adult) (pediatric); R10.11 Right upper quadrant pain
CPT/HCPCS: 36415; 80053; 82248; 85025

== ENCOUNTER 2023-10-22 08:49 | Outpatient (REF) | payer OTHER, SELFPAY ==
--- NOTE | ~2023-10-22 | US_ITS ---
EXAMINATION: US ABDOMEN COMPLETE CLINICAL INFORMATION: Right upper quadrant pain. COMPARISON: None available. TECHNIQUE: Real-time imaging of the abdominal viscera. Limited visualization due to bowel gas. FINDINGS: PANCREAS: Limited visualization of pancreatic tail and head. Imaged portion of pancreatic body is unremarkable. ABDOMINAL AORTA: Unremarkable. INFERIOR VENA CAVA: Visualized portions are normal. LIVER: Increased hepatic parenchymal heterogeneity and echogenicity could be associated with hepatocellular disease/hepatic steatosis and severely limits visualization. Correlation with liver function tests and clinical exam recommended to determine further management. The liver contour is normal. GALLBLADDER: No gallstones. No gallbladder wall thickening. COMMON BILE DUCT: Normal in caliber measuring 0.3 cm in diameter. RIGHT KIDNEY: No hydronephrosis. No renal calculi. Limited visualization. The kidney measures 12.4 cm in maximum dimension. LEFT KIDNEY: No hydronephrosis. No renal calculi. Limited visualization. The kidney measures 11.8 cm in maximum dimension. SPLEEN: Normal. The spleen measures 9.5 cm in maximum dimension. FREE FLUID: None. US/US abdomen complete IMPRESSION: Increased hepatic parenchymal heterogeneity and echogenicity could be associated with hepatocellular disease/hepatic steatosis and severely limits visualization. Correlation with liver function tests and clinical exam recommended to determine further management.
== END 2023-10-22 08:50 | disposition home or self-care (01) ==
LOC: HO.US 08:49
PROVIDERS: PCP Internal Medicine; Visit Provider Internal Medicine
DX: R10.811 Right upper quadrant abdominal tenderness (principal)
CPT/HCPCS: 76700

== ENCOUNTER 2023-12-02 09:20 | Outpatient (AMB) | payer OTHER, SELFPAY ==
[2023-12-02 09:36] VITALS: BP 132/72; PULSE 71; O2SAT 97; BMI 44.4
--- NOTE | 2023-12-02 09:36 | A.OFFVIS_ITS ---
Vital Signs 12/02/23 09:36 Height 5 ft 5 in Weight 266 lb 12.149 oz BMI 44.4 BP 132/72 Blood Pressure Location Lt brachial Position Sitting Pulse 71 Pulse Source Pulse Oximeter Pulse Oximetry (%) 97 Oxygen Delivery Method Room Air Intake Visit Reasons: Obstructive sleep apnea Allergies No Known Allergies Allergy (Verified 12/02/23 09:59) Medication List - Last Reconciled 12/02/23 by Behzad Moralez MD amlodipine 5 mg PO DAILY atorvastatin 10 mg PO DAILY buspirone 10 mg PO BID PRN hydrochlorothiazide 25 mg PO DAILY zolpidem 10 mg PO BEDTIME PRN Do you need a note to return to daycare/school/sports/work: No HPI HPI Obstructive sleep apnea: Details: 43 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 .HE IS HERE FOR 4 MONTHS FOLLOW-UP USES CPAP EVERY DAY VERY REGULARLY, SOME NIGHTS MAY BE ONLY FOR A FEW HOURS BUT MOSTLY MORE THAN 5 HOURS PER NIGHT. DENIES ANY PROBLEM WITH THE MASK AND ALSO DENIES ANY DAYTIME SLEEPINESS. HE HAS BEEN TRYING TO LOSE WEIGHT BUT GOES ON AND OFF THE DIET PLAN. WHEN HE IS STRICTLY IN HIS DIET PLAN ( FOLLOWS AN KHANG ON HIS IPHONE - FASTING FOR 16 HOURS ) HE DOES LOSE WEIGHT BUT THEN HE GIVES UP THAT REGIMEN. [facility] Medical History Insomnia Morbid obesity Obstructive sleep apnea Acid reflux Hypercholesteremia HTN (hypertension) Surgical History No pertinent past surgical history Family History Father CAD (coronary artery disease) Mother Hypertension Sister Multiple sclerosis Social History Alcohol intake: current Alcohol intake frequency: holidays/special occasions only Patient Tobacco Use Status: Never used Tobacco Review of Systems Const All systems reviewed & are unremarkable except as noted in HPI and below Eyes Reports no additional complaints ENT Reports no additional complaints Card Denies chest pain, Denies irregular heart rhythm and Reports leg edema (Improved after taking HCTZ) Resp Reports no additional complaints GI Reports heartburn (Controlled) Reports no additional complaints Musc Reports no additional complaints Skin/Breast Reports system reviewed and no additional complaints, except as documented Neuro Reports no additional complaints Endo Reports no additional complaints Darius/Lymph Reports no additional complaints Aller/Immun Reports no additional complaints Physical Exam Vital Signs: Last Vital Signs Pulse 71 12/02/23 09:36 BP 132/72 12/02/23 09:36 Pulse Ox 97 12/02/23 09:36 Oxygen Delivery Method Room Air 12/02/23 09:36 BMI result Body Mass Index 44.4 Const Other: This gentleman is morbidly obese with very round face, and short neck. General: comfortable, no acute distress, alert and awake Orientation/consciousness: patient oriented x3 HEENT Head: Yes normal to inspection General nose exam: No nasal polyps present and No nasal discharge present Face and sinus: Yes sinuses nontender Mouth: oropharynx abnormals (His chin is slightly regressed, tongue is convex, oropharynx crowded,MP-4) Throat: Yes posterior oropharynx normal Eyes General: appearance normal, both eyes and all related structures Neck Neck: Yes normal visual inspection, Yes no lymphadenopathy, Yes trachea midline, Yes no JVD and Yes other (Neck circumference 19 in) Thyroid: Thyroid normal Chest Chest palpation & inspection: normal inspection of the chest, normal palpation of entire chest wall and no tenderness Resp Effort & Inspection: normal respiratory effort Auscultation: clear to auscultation bilaterally, no crackles and no wheezes Percussion: percussion normal Cardio Palpation: normal PMI Rate: regular rate Rhythm: regular rhythm Heart sounds: no gallops and no murmurs Peripheral pulses: Peripheral pulses 2+ throughout GI Palpation (GI): Soft to palpation, nontender, No hepatosplenomegaly present and no masses Auscultation: normal bowel sounds Back/Spine/Pelvis Thoracic/Lumbar Spine: thoracic and lumbar spine normal to inspection Skin General skin exam: no rashes or lesions noted Neuro General: patient oriented x3 and no focal motor deficits Cranial nerves: Yes CN's II-XII intact bilaterally Extrem General: Yes normal to inspection, Yes no clubbing, cyanosis or edema and Yes no calf tenderness Psych Appearance: grossly normal and well kempt Speech and movement: Normal speech and movement present Results Reviewed Results Reviewed: COMPLIANCE REPORT FOR THE LAST 30 NIGHTS IS REVIEWED. HE HAS USED 30/30 NIGHTS., 100% AVERAGE USE IT PER NIGHT 5 HOURS 4 MINUTES. PRESSURE USED MOSTLY 14-15 CM. THERE IS SOME AIR LEAK MAXIMUM 73.6 L. RESIDUAL AHI 3.7 Assessment & Plan Assessment & Plan (1) Morbid obesity: Comment: BMI= 44.4 Patient remains morbidly obese, Code(s): E66.01 - Morbid (severe) obesity due to excess calories Category: Medical Plan: WE HAD A LONG DISCUSSION ABOUT LOSING WEIGHT. HE ADVISED HIM TO FOLLOW IS STRICT DIETING PROGRAM. WOULD BE BEST IF HE JOIN A WEIGHT MANAGEMENT PROGRAM. BUT FOR HIS OWN DIETARY PROGRAM HE SHOULD RESTRICT INTAKE OF CARBOHYDRATES AND INCREASE THE INTAKE OF VEGGIES AND SOLIDS. HE MUST WALK BRISK OR JOG AT LEAST 2 MILES EVERY DAY. (2) Obstructive sleep apnea: Comment: Severe ,as per his Sleep study on 11/2020, He is being treated with CPAP therapy and he is very compliant. Main issue is anxiety, but he still gets about 5-6 hours of sleep at night. Code(s): G47.33 - Obstructive sleep apnea (adult) (pediatric) Category: Medical Plan: COMMENDED FOR GOOD COMPLIANCE AND ADVISED TO CONTINUE USING THE CPAP EVERY NIGHT (3) Insomnia: Comment: Patient is stating that he he has difficulty in falling asleep and also in maintaining sleep above 4 hours. 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 Code(s): G47.00 - Insomnia, unspecified Category: Medical Plan: Sleep hygiene techniques discussed. He does use zolpidem 10 mg p.r.n.. I advised him to cut it down to as little as possible. Coding Level of Care Code Est Pt Level 3 (20627) Diagnoses Morbid obesity E66.01 Obstructive sleep apnea G47.33 Insomnia G47.00
== END 2023-12-02 10:12 | disposition home or self-care (01) ==
PROVIDERS: PCP Internal Medicine; Visit Provider Internal Medicine
DX: E66.01 Morbid (severe) obesity due to excess calories (principal); G47.33 Obstructive sleep apnea (adult) (pediatric); G47.00 Insomnia, unspecified
CPT/HCPCS: 99213

== ENCOUNTER → 2023-12-02 09:20 | Outpatient (BNVA) | payer OTHER, SELFPAY | PROVIDERS: PCP Internal Medicine; Visit Provider Internal Medicine ==

== ENCOUNTER 2024-01-03 14:54 | Outpatient (REF) | payer OTHER, SELFPAY ==
--- NOTE | ~2024-01-03 | US_ITS ---
EXAMINATION: US VENOUS ULTRASOUND WITH DOPPLER LOWER EXTREMITY, RIGHT CLINICAL INFORMATION: Right lower limb pain COMPARISON: None available. TECHNIQUE: Ultrasound of the deep veins is performed from the hip to the calf with compression sonography and color and pulse Doppler assessment. Spectral analysis with color-flow imaging is performed. FINDINGS: There is normal venous compression and respiratory variation and augmented flow. The visualized common femoral vein, superficial femoral vein, profunda femoral vein, popliteal vein, and the trifurcation region shows no evidence of deep venous thrombosis. There is no significant popliteal fossa cyst. Visualization of the right peroneal vein is limited by deep position of the vein. If the patient's symptoms persist, followup ultrasound in 5 days 7 days might be of value to exclude proximal propagation from a non-visualized calf vein. US/US venous duplex LE RT IMPRESSION: No DVT demonstrated in the right lower extremity.
== END 2024-01-03 14:55 | disposition home or self-care (01) ==
LOC: HO.US 14:54
PROVIDERS: PCP Internal Medicine; Visit Provider Internal Medicine
DX: M79.604 Pain in right leg (principal)
CPT/HCPCS: 93971

== ENCOUNTER 2024-03-23 11:05 | Outpatient (REF) | payer OTHER, SELFPAY ==
[2024-03-25 19:48] LABS: Bordetella DNA source Swab; Bordetella parapertussis DNA Not Detected (Not Detected); Bordetella pertussis DNA Not Detected (Not Detected)
== END 2024-03-23 11:06 | disposition home or self-care (01) ==
LOC: HO.LNP 11:05
PROVIDERS: Visit Provider Internal Medicine
DX: A37.00 Whooping cough due to Bordetella pertussis without pneumonia (principal)
CPT/HCPCS: 87798

== ENCOUNTER 2024-04-11 08:59 | Outpatient (AMB) | payer OTHER, SELFPAY ==
--- NOTE | 2024-04-11 09:07 | A.OFFVIS_ITS ---
Vital Signs 04/11/24 09:08 Weight 265 lb 10.512 oz BP 130/70 Blood Pressure Location Lt brachial Position Sitting Pulse 75 Pulse Source Pulse Oximeter Pulse Oximetry (%) 98 Oxygen Delivery Method Room Air Intake Visit Reasons: Obstructive sleep apnea Allergies No Known Allergies Allergy (Verified 04/11/24 09:12) Medication List - Last Reconciled 04/11/24 by Behzad Moralez MD amlodipine 5 mg PO DAILY atorvastatin 10 mg PO DAILY hydrochlorothiazide 25 mg PO DAILY lorazepam 0.5 mg PO DAILY PRN venlafaxine ER 37.5 mg PO DAILY Do you need a note to return to daycare/school/sports/work: No HPI HPI Obstructive sleep apnea: Details: 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 COMES AFTER 6 MONTHS FOR FOLLOW-UP. HE HAS BEEN USING CPAP MORE REGULARLY THAN BEFORE BUT STILL HAS DIFFICULTY IN SLEEPING. HE SAY IS DUE TO STRESS OF THE WORK HE HAS DIFFICULTY IN FALLING ASLEEP AND THEN MAINTAINING HIS SLEEP. LATELY HE HAS BEEN STARTED ON EFFEXOR ER WHICH HE TAKES EVERY DAY AND THIS IS HELPING. ALSO LORAZEPAM 0.5 MG GIVEN TO HIM TO USE P.R.N. IF HE DOES NOT FALL ASLEEP, BUT HE DOES NOT NEED IT REGULARLY. HE CLAIMS THAT THIS COMBINATION IS WORKING BETTER. HIS DEPRESSION IS RELATIVELY CONTROLLED AND HE DOES NOT FEEL ANXIOUS. HE HAS BEEN USING CPAP VERY REGULARLY EVERY NIGHT, FOR 4-5 HOURS PER NIGHT. HE HAS NOT BEEN ABLE TO JOIN ANY WEIGHT MANAGEMENT PROGRAM AND ALSO HAS NOT STARTED EXERCISE ON HIS OWN. HE DOES HAVE MOTIVATION TO LOSE WEIGHT. [facility] Medical History Insomnia Morbid obesity Obstructive sleep apnea Acid reflux Hypercholesteremia HTN (hypertension) Surgical History No pertinent past surgical history Family History Father CAD (coronary artery disease) Mother Hypertension Sister Multiple sclerosis Social History Alcohol intake: current Alcohol intake frequency: holidays/special occasions only Patient Tobacco Use Status: Never used Tobacco Review of Systems Const All systems reviewed & are unremarkable except as noted in HPI and below Eyes Reports no additional complaints ENT Reports no additional complaints Card Denies chest pain, Denies irregular heart rhythm and Reports leg edema (Improved after taking HCTZ) Resp Reports no additional complaints GI Reports heartburn (Controlled) Reports no additional complaints Musc Reports no additional complaints Skin/Breast Reports system reviewed and no additional complaints, except as documented Neuro Reports no additional complaints Endo Reports no additional complaints Darius/Lymph Reports no additional complaints Aller/Immun Reports no additional complaints Physical Exam Vital Signs: Last Vital Signs Pulse 75 04/11/24 09:08 BP 130/70 04/11/24 09:08 Pulse Ox 98 04/11/24 09:08 Oxygen Delivery Method Room Air 04/11/24 09:08 Const Other: This gentleman is morbidly obese with very round face, and short neck. General: comfortable, no acute distress, alert and awake Orientation/consciousness: patient oriented x3 HEENT Head: Yes normal to inspection General nose exam: No nasal polyps present and No nasal discharge present Face and sinus: Yes sinuses nontender Mouth: oropharynx abnormals (His chin is slightly regressed, tongue is convex, oropharynx crowded,MP-4) Throat: Yes posterior oropharynx normal Eyes General: appearance normal, both eyes and all related structures Neck Neck: Yes normal visual inspection, Yes no lymphadenopathy, Yes trachea midline, Yes no JVD and Yes other (Neck circumference 19 in) Thyroid: Thyroid normal Chest Chest palpation & inspection: normal inspection of the chest, normal palpation of entire chest wall and no tenderness Resp Effort & Inspection: normal respiratory effort Auscultation: clear to auscultation bilaterally, no crackles and no wheezes Percussion: percussion normal Cardio Palpation: normal PMI Rate: regular rate Rhythm: regular rhythm Heart sounds: no gallops and no murmurs Peripheral pulses: Peripheral pulses 2+ throughout GI Palpation (GI): Soft to palpation, nontender, No hepatosplenomegaly present and no masses Auscultation: normal bowel sounds Back/Spine/Pelvis Thoracic/Lumbar Spine: thoracic and lumbar spine normal to inspection Skin General skin exam: no rashes or lesions noted Neuro General: patient oriented x3 and no focal motor deficits Cranial nerves: Yes CN's II-XII intact bilaterally Extrem General: Yes normal to inspection, Yes no clubbing, cyanosis or edema and Yes no calf tenderness Psych Appearance: grossly normal and well kempt Speech and movement: Normal speech and movement present Results Reviewed Results Reviewed: HIS COMPLIANCE FOR THE LAST 30 NIGHTS IS REVIEWED HE HAS USED CPAP EVERY NIGHT, 100% OF THE NIGHTS. USAGE PER NIGHT 4 HOURS 42 MINUTES. PRESSURE USED MOSTLY 13-14 CM. THERE IS MODERATE DEGREE OF AIR LEAK. RESIDUAL AHI 1.8 Assessment & Plan Assessment & Plan (1) Morbid obesity: Comment: BMI= 44.4 Patient remains morbidly obese, Code(s): E66.01 - Morbid (severe) obesity due to excess calories Category: Medical Plan: HAS NOT BEEN ABLE TO LOSE WEIGHT. HE CLAIMS THAT HIS ANXIETY AND DEPRESSION EFFECTS HIS MOTIVATION. NOW THAT HE IS ON THE NEW REGIMEN WHICH IS WORKING BETTER HE PLANS TO FOLLOW DIET AND START EXERCISING. (2) Obstructive sleep apnea: Comment: Severe ,as per his Sleep study on 11/2020, He is being treated with CPAP therapy and he is very compliant. Main issue is anxiety, but he still gets about 4-5 hours of sleep at night. Code(s): G47.33 - Obstructive sleep apnea (adult) (pediatric) Category: Medical Plan: STRESSED THAT HE SHOULD USE THE CPAP BETWEEN 5-6 HOURS EVERY NIGHT. THERE IS SOME AIR LEAK AND HE IS GETTING NEW CPAP MASK AND WOULD TIGHTEN THE STRAPS. (3) Insomnia: Comment: Patient is stating that he he has difficulty in falling asleep and also in maintaining sleep above 4 hours. 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 He is happy with his new medical regimen including Effexor XR 37.5 daily, and lorazepam 0.5 mg at bedtime p.r.n. which he is not requiring to use every night. Code(s): G47.00 - Insomnia, unspecified Category: Medical Plan: Sleep hygiene discussed. Continue the current medical regimen. Continue to follow-up with PCP, for adjustment of does of Effexor XR and lorazepam. Coding Level of Care Code Est Pt Level 3 (72509) Diagnoses Morbid obesity E66.01 Obstructive sleep apnea G47.33 Insomnia G47.00
[2024-04-11 09:08] VITALS: BP 130/70; PULSE 75; O2SAT 98
== END 2024-04-11 09:28 | disposition home or self-care (01) ==
PROVIDERS: PCP Internal Medicine; Visit Provider Internal Medicine
DX: E66.01 Morbid (severe) obesity due to excess calories (principal); G47.33 Obstructive sleep apnea (adult) (pediatric); G47.00 Insomnia, unspecified
CPT/HCPCS: 99213

== ENCOUNTER → 2024-04-11 08:59 | Outpatient (BNVA) | payer OTHER, SELFPAY | PROVIDERS: PCP Internal Medicine; Visit Provider Internal Medicine ==

== ENCOUNTER 2024-05-01 11:26 | Outpatient (REF) | payer OTHER, SELFPAY ==
[2024-05-01 13:35] LABS: Estimated Average Glucose 157 mg/dL; Hemoglobin A1C 211.2514 umol/L; Hemoglobin A1c % 7.1 % (<6.0); Total Hemoglobin (HGBA1C) 3908.4586 umol/L
[2024-05-01 14:06] LABS: Alanine Aminotransferase 46 U/L (0-40); Albumin Level 4.3 g/dL (3.5-5.0); Alkaline Phosphatase 104 U/L (39-117); Anion Gap 10 (12-20); Aspartate Amino Transferase 29 U/L (5-37); Bilirubin Total 0.4 mg/dL (0.0-1.0); Blood Urea Nitrogen 8 mg/dL (9-16); Calcium 9.1 mg/dL (8.4-10.2); Carbon Dioxide 28 mmol/L (22-29); Chloride 105 mmol/L (96-108); Estimated Glomerular Filt Rate > 60; Glucose Random 127 mg/dL (60-115); Potassium 3.6 mmol/L (3.3-5.1); Sodium 139 mmol/L (135-145); Total Protein 7.5 g/dL (6.5-8.0)
== END 2024-05-01 11:27 | disposition home or self-care (01) ==
LOC: HO.10HDL 11:26
PROVIDERS: Visit Provider Internal Medicine
DX: I10 Essential (primary) hypertension (principal); R73.03 Prediabetes
CPT/HCPCS: 36415; 80053; 83036

== ENCOUNTER 2024-05-05 09:07 | Outpatient (REF) | payer OTHER, SELFPAY ==
[2024-05-05 14:24] LABS: Estimated Average Glucose 160 mg/dL; Hemoglobin A1C 223.5021 umol/L; Hemoglobin A1c % 7.2 % (<6.0); Total Hemoglobin (HGBA1C) 4065.4093 umol/L
== END 2024-05-05 09:08 | disposition home or self-care (01) ==
LOC: HO.10HDL 09:07
PROVIDERS: Visit Provider Internal Medicine
DX: R73.03 Prediabetes (principal)
CPT/HCPCS: 36415; 83036

== ENCOUNTER 2024-06-21 02:42 | Emergency (ER) | payer OTHER, SELFPAY ==
[2024-06-21 03:00] VITALS: BP 156/96; PULSE 85; RESP 14; TEMP 37.1; O2SAT 98; BMI 42.9
--- NOTE | 2024-06-21 03:35 | ED_ITS ---
HPI - URI/Sore Throat General Chief Complaint: Upper Respiratory Symptoms Stated Complaint: sore throat Time Seen by Provider: 06/21/24 03:33 Source: patient Mode of arrival: ambulatory Limitations: no limitations History of Present Illness ED Provider: HPI Narrative: Patient is diabetic with history of sleep apnea comes here for his sore throat cough for last 3 4 days his kids were also sick 2 weeks ago the getting better now low-grade fever cough with mucoid phlegm mostly with sore throat no shortness a breath Related Data Home Medications ?Medication ?Instructions ?Recorded ?Confirmed atorvastatin 10 mg tablet 10 mg PO DAILY 01/20/21 04/11/24 hydrochlorothiazide 25 mg tablet 25 mg PO DAILY 06/30/21 03/11/23 amlodipine 5 mg tablet 5 mg PO DAILY 03/11/23 04/11/24 lorazepam 0.5 mg tablet 0.5 mg PO DAILY PRN 04/11/24 04/11/24 venlafaxine 37.5 mg 37.5 mg PO DAILY 04/11/24 04/11/24 capsule,extended release 24 hr Previous Rx's ?Medication ?Instructions ?Recorded amoxicillin 875 mg-potassium 1 tab PO BID #20 tabs 06/21/24 clavulanate 125 mg tablet Allergies Allergy/AdvReac Type Severity Reaction Status Date / Time No Known Allergies Allergy Verified 06/21/24 03:02 Review of Systems Review of Systems: Yes all other systems are reviewed and are negative [facility] Past Medical History Medical History Insomnia Morbid obesity Obstructive sleep apnea Acid reflux Hypercholesteremia HTN (hypertension) Surgical History No pertinent past surgical history Family History Family History Father CAD (coronary artery disease) Mother Hypertension Sister Multiple sclerosis Social History Social History Alcohol intake: current Alcohol intake frequency: holidays/special occasions only Patient Tobacco Use Status: Never used Tobacco Advance Directives: No Do you have a plan to hurt others: No Plan Physical Exam Vital Signs: Vital Signs: Last Vital Signs Temp 98.8 F 06/21/24 03:00 Pulse 85 06/21/24 03:00 Resp 14 06/21/24 03:00 BP 156/96 H 06/21/24 03:00 Pulse Ox 98 06/21/24 03:00 O2 Del Method Room Air 06/21/24 03:00 BMI result Body Mass Index 42.9 Appearance: Alert. Oriented X3. No acute distress. ENT: Pharynx erythematous. Oral Mucosa moist Neck: Normal inspection. Neck supple. CVS: Normal heart rate and rhythm. Pulses normal. Respiratory: No respiratory distress. Equal air entry bilateral, no wheezing/rales/rhonchi Skin: Skin warm and dry. Normal skin color. Normal skin turgor. Extremities: No lower extremity edema. Neuro: Oriented X 3. Medical Decision Making Lab Data Labs: Lab Results 06/21/24 Range/Units 03:09 COVID-19 (KAYLAH) Negative (Negative) COVID-19 Clin Com See Note Influenza Type A (ELISA) Negative (Negative) Influenza Type B (ELISA) Negative (Negative) Influenza A & B Note See Note S. pyogenes GrpA ELISA Negative (Negative) Discharge Plan Discharge Clinical Impression: Pharyngitis Patient Disposition: Home, Self-Care Instructions: Pharyngitis (ED) Additional Instructions: Drink plenty of fluids Saline gargles Take antibiotic as prescribed Follow with your PCP if not better Prescriptions: New amoxicillin-pot clavulanate 875-125 mg tablet 1 tab PO BID Qty: 20 0RF No Action atorvastatin 10 mg tablet 10 mg PO DAILY hydrochlorothiazide 25 mg tablet 25 mg PO DAILY amlodipine 5 mg tablet 5 mg PO DAILY lorazepam 0.5 mg tablet 0.5 mg PO DAILY PRN venlafaxine 37.5 mg capsule,extended release 24hr 37.5 mg PO DAILY Print Language: Ukrainian
[2024-06-21 03:38] LABS: COVID-19 Test Negative (Negative); IDNOW Serial# 16C4AD1C
[2024-06-21 03:39] LABS: IDNOW Serial# 55D5AD1C; IDNOW Serial# 58CA691E; Influenza A Negative (Negative); Influenza B2 Negative (Negative); Strep A Nucleic Acid Negative (Negative)
[2024-06-21] MEDS: Amoxicillin/Potassium Clav 875 MG TABLET PO (04:13)
[2024-06-21 04:14] VITALS: O2SAT 97
[2024-06-21 04:18] VITALS: BP 147/89; PULSE 89; RESP 18; TEMP 36.9; O2SAT 97
== END 2024-06-21 04:19 | disposition home or self-care (01) ==
PROVIDERS: Emergency Provider Internal Medicine; PCP Internal Medicine
DX: J02.9 Acute pharyngitis, unspecified (principal); R05.9 Cough, unspecified; Z03.818 Encounter for observation for suspected exposure to other biological agents ruled out; E11.8 Type 2 diabetes mellitus with unspecified complications; I10 Essential (primary) hypertension; E78.00 Pure hypercholesterolemia, unspecified; Z79.899 Other long term (current) drug therapy; Z79.84 Long term (current) use of oral hypoglycemic drugs; Z79.02 Long term (current) use of antithrombotics/antiplatelets
CPT/HCPCS: 87502; 87635; 87651; 99283; 99284

== ENCOUNTER 2024-08-21 08:23 | Outpatient (REF) | payer OTHER, SELFPAY ==
[2024-08-21 10:40] LABS: MANUAL DIFF FLAG NO
[2024-08-21 10:46] LABS: Basophils Percent Auto 0.2 % (0-2); Eosinophils Absolute Auto 0.1 X10*3/uL (0.0-0.4); Eosinophils Percent Auto 0.9 % (0-4); Hematocrit 46.3 % (42.0-52.0); Lymphocytes Absolute Auto 1.8 X10*3/uL (1.2-4.9); Lymphocytes Percent Auto 28.6 % (20-40); Mean Corpuscular HGB Conc 34.6 g/dl (31.0-36.0); Mean Corpuscular Volume 89.7 fL (80.0-98.0); Mean Platelet Volume 8.9 fL (9.4-12.4); Monocytes Absolute Auto 0.7 X10*3/uL (0.1-1.2); Monocytes Percent Auto 10.3 % (2-11); Neutrophils Absolute Auto 3.8 x10*3/uL (2.0-8.3); Platelet Count 171 X10*3/uL (160-400); Red Blood Count 5.16 X10*6/uL (4.60-5.80); Red Cell Distribution Width 12.6 % (11.0-16.0); White Blood Count 6.4 X10*3/uL (4.8-10.8)
[2024-08-21 11:05] LABS: Estimated Average Glucose 126 mg/dL; Hemoglobin A1C 170.4063 umol/L
[2024-08-21 11:49] LABS: Alanine Aminotransferase 44 U/L (0-40); Albumin Level 4.2 g/dL (3.5-5.0); Alkaline Phosphatase 85 U/L (39-117); Anion Gap 13 (12-20); Aspartate Amino Transferase 33 U/L (5-37); Bilirubin Total 0.4 mg/dL (0.0-1.0); Blood Urea Nitrogen 12 mg/dL (9-16); Calcium 9.1 mg/dL (8.4-10.2); Carbon Dioxide 26 mmol/L (22-29); Chloride 108 mmol/L (96-108); Cholesterol 121 mg/dL (<200); Estimated Glomerular Filt Rate > 60; Glucose Fasting 107 mg/dL (60-99); HDL Cholesterol 34 mg/dL (>40); LDL Cholesterol Calculated 73 mg/dL (<100); Potassium 3.5 mmol/L (3.3-5.1); Sodium 143 mmol/L (135-145); Total Protein 7.9 g/dL (6.5-8.0); Triglycerides 74 mg/dL (<150)
[2024-08-21 12:23] LABS: Creatinine Urine 124.12 mg/dL; Microalbum/Creatinine Ratio Ur 20.9 ug/mg cr (<30)
== END 2024-08-21 08:24 | disposition home or self-care (01) ==
LOC: HO.10HDL 08:23
PROVIDERS: Visit Provider Internal Medicine
DX: E11.9 Type 2 diabetes mellitus without complications (principal); I10 Essential (primary) hypertension
CPT/HCPCS: 36415; 80053; 80061; 82043; 82570; 83036; 85025

== ENCOUNTER 2024-08-28 14:22 | Outpatient (AMB) | payer OTHER, SELFPAY ==
--- NOTE | 2024-08-28 14:27 | A.OFFVIS_ITS ---
Vital Signs 08/28/24 14:28 Height 5 ft 5 in Weight 245 lb BMI 40.8 BP 142/102 H Blood Pressure Location Lt brachial Position Sitting Pulse 82 Pulse Source Pulse Oximeter Pulse Oximetry (%) 97 Oxygen Delivery Method Room Air Intake Visit Reasons: Obstructive sleep apnea Intake Note: pt is here for follow up of JONO, and he does have interest in the inspire. Insurance Follow Up Representative Required: No Allergies No Known Allergies Allergy (Verified 08/28/24 14:57) Medication List - Last Reconciled 08/28/24 by Behzad Moralez MD amlodipine 5 mg PO DAILY atorvastatin 10 mg PO DAILY empagliflozin (Jardiance) 10 mg PO DAILY lorazepam 0.5 mg PO DAILY PRN venlafaxine ER 37.5 mg PO DAILY Do you need a note to return to daycare/school/sports/work: No HPI HPI Obstructive sleep apnea: Details: 43 YEARS OLD GENTLEMAN WITH MORBID OBESITY AND OBSTRUCTIVE SLEEP APNEA IS HERE FOR HIS ROUTINE FOLLOW-UP. HE DOES USE HIS CPAP EVERY NIGHT HOWEVER ONLY ABOUT 4 TO 4-1/2 HOURS. HE SAY IS THAT HE PUTS ON HIS CPAP REGULARLY, BUT DURING THE MIDDLE OF THE NIGHT WHEN HE WAKES UP THEN HE CAN NOT GO BACK TO SLEEP AND THAT IS WHY HIS USAGE REMAINS ONLY AROUND 4-1/2 HOURS PER NIGHT. I TOLD HIM THAT WAKING EARLY AND NOT GOING BACK TO WORK IS ONE OF THE SYMPTOMS OF DEPRESSION. AND HE SAID YES HE DOES FEEL DEPRESSED AND STRESSED OUT. HE DOES SEE MENTAL HEALTH SERVICE, AND HE IS ON EFFEXOR 37.5 MG A DAY WELL LORAZEPAM P.R.N.. HE IS LOOKING FOR SOME STRONGER ANTIDEPRESSANT IS. I TOLD HIM TO DISCUSS WITH HIS MENTAL HEALTH PROVIDER. HE IS TRYING TO LOSE WEIGHT AND DO IN THE LAST 6 MONTHS OR SO HAS LOST ABOUT 20 LB. HE INQUIRED ABOUT INSPIRE , TREATMENT OF JONO BUT WE TOLD HIM THAT HIS BMI HAS TO BE BELOW 35 FOR THAT. [facility] Medical History Insomnia Morbid obesity Obstructive sleep apnea Acid reflux Hypercholesteremia HTN (hypertension) Surgical History No pertinent past surgical history Family History Father CAD (coronary artery disease) Mother Hypertension Sister Multiple sclerosis Social History Alcohol intake: current Alcohol intake frequency: holidays/special occasions only Alcohol type: beer Patient Tobacco Use Status: Never used Tobacco Review of Systems Const All systems reviewed & are unremarkable except as noted in HPI and below Eyes Reports no additional complaints ENT Reports no additional complaints Card Denies chest pain, Denies irregular heart rhythm and Reports leg edema (Improved after taking HCTZ) Resp Reports no additional complaints GI Reports heartburn (Controlled) Reports no additional complaints Musc Reports no additional complaints Skin/Breast Reports system reviewed and no additional complaints, except as documented Neuro Reports no additional complaints Endo Reports no additional complaints Darius/Lymph Reports no additional complaints Aller/Immun Reports no additional complaints Physical Exam Vital Signs: Last Vital Signs Pulse 82 08/28/24 14:28 BP 142/102 H 08/28/24 14:28 Pulse Ox 97 08/28/24 14:28 Oxygen Delivery Method Room Air 08/28/24 14:28 BMI result Body Mass Index 40.8 Const Other: This gentleman is morbidly obese with very round face, and short neck. General: comfortable, no acute distress, alert and awake Orientation/consciousness: patient oriented x3 HEENT Head: Yes normal to inspection General nose exam: No nasal polyps present and No nasal discharge present Face and sinus: Yes sinuses nontender Mouth: oropharynx abnormals (His chin is slightly regressed, tongue is convex, oropharynx crowded,MP-4) Throat: Yes posterior oropharynx normal Eyes General: appearance normal, both eyes and all related structures Neck Neck: Yes normal visual inspection, Yes no lymphadenopathy, Yes trachea midline, Yes no JVD and Yes other (Neck circumference 19 in) Thyroid: Thyroid normal Chest Chest palpation & inspection: normal inspection of the chest, normal palpation of entire chest wall and no tenderness Resp Effort & Inspection: normal respiratory effort Auscultation: clear to auscultation bilaterally, no crackles and no wheezes Percussion: percussion normal Cardio Palpation: normal PMI Rate: regular rate Rhythm: regular rhythm Heart sounds: no gallops and no murmurs Peripheral pulses: Peripheral pulses 2+ throughout GI Palpation (GI): Soft to palpation, nontender, No hepatosplenomegaly present and no masses Auscultation: normal bowel sounds Back/Spine/Pelvis Thoracic/Lumbar Spine: thoracic and lumbar spine normal to inspection Skin General skin exam: no rashes or lesions noted Neuro General: patient oriented x3 and no focal motor deficits Cranial nerves: Yes CN's II-XII intact bilaterally Extrem General: Yes normal to inspection, Yes no clubbing, cyanosis or edema and Yes no calf tenderness Psych Appearance: grossly normal and well kempt Speech and movement: Normal speech and movement present Results Reviewed Results Reviewed: COMPLIANCE REPORT FOR THE LAST 30 NIGHTS IS REVIEWED. HE HAS USED 30/30 NIGHTS,. 100% OF THE NIGHTS AVERAGE USE IT PER NIGHT 4 HOURS 25 MINUTES. THERE IS SOME AIR LEAK. RESIDUAL AHI 4.2 Assessment & Plan Assessment & Plan (1) Obstructive sleep apnea: Comment: Severe ,as per his Sleep study on 11/2020, He is being treated with CPAP therapy and he is very compliant. HIS USAGE OF CPAP PER NIGHT REMAINS AROUND 4 TO 4-1/2 HOURS. HE EXPRESSED THAT HE DOES FEEL LOT OF STRESS AND SOME DEGREE OF DEPRESSION, WHICH CAUSES INSOMNIA AND HE CAN NOT GO BACK TO SLEEP WHEN HE WAKES UP IN THE MORNINGS. Code(s): G47.33 - Obstructive sleep apnea (adult) (pediatric) Category: Medical Plan: COMMENDED FOR GOOD COMPLIANCE, WE HAD A GOOD TALK WITH HIM TAKE CARE OF HIS STRESS/DEPRESSION AND POOR SLEEP ENCOURAGED TO CONTINUE SEEING THE MENTAL HEALTH PROVIDER, AND DISCUSS ABOUT SOME MEDICATION TO PROMOTE HIS SLEEP. (2) Insomnia: Comment: Patient is stating that he he has difficulty in falling asleep and also in maintaining sleep above 4 hours. 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 He is happy with his new medical regimen including Effexor XR 37.5 daily, and lorazepam 0.5 mg at bedtime p.r.n. which he is not requiring to use every night. Code(s): G47.00 - Insomnia, unspecified Category: Medical Plan: CONTINUE PRESENT MEDICATION. IN ADDITION I ENCOURAGED HIM TO DO ACTIVE EXERCISE ON A DAILY BASIS. (3) Morbid obesity: Comment: BMI= 44.4 down to 40.8 , he is gradually losing weight. Patient still remains morbidly obese, Code(s): E66.01 - Morbid (severe) obesity due to excess calories Category: Medical Plan: Commended for losing weight, and encouraged to keep on losing more weight. He must do active exercise such as jogging or fast walking, going to gym on a daily basis. Coding Level of Care Code Est Pt Level 3 (20196) Diagnoses Obstructive sleep apnea G47.33 Insomnia G47.00 Morbid obesity E66.01
[2024-08-28 14:28] VITALS: BP 142/102; PULSE 82; O2SAT 97; BMI 40.8
== END 2024-08-28 14:59 | disposition home or self-care (01) ==
PROVIDERS: PCP Internal Medicine; Visit Provider Internal Medicine
DX: G47.33 Obstructive sleep apnea (adult) (pediatric) (principal); G47.00 Insomnia, unspecified; E66.01 Morbid (severe) obesity due to excess calories
CPT/HCPCS: 99213

== ENCOUNTER → 2024-08-28 14:22 | Outpatient (BNVA) | payer OTHER, SELFPAY | PROVIDERS: PCP Internal Medicine; Visit Provider Internal Medicine ==

== ENCOUNTER → 2024-09-04 14:07 | Outpatient (BNVA) | payer OTHER, SELFPAY | PROVIDERS: PCP Internal Medicine; Visit Provider Internal Medicine ==

== ENCOUNTER → 2024-09-04 14:07 | Outpatient (AMB) | payer OTHER, SELFPAY ==
--- NOTE | 2024-09-04 14:20 | MHC.PC.OV ---
Vital Signs 09/04/24 14:21 Height 5 ft 5 in Weight 243 lb BMI 40.4 BP 138/80 Respiration 18 Pulse 80 Pulse Source Pulse Oximeter Temp 97.8 F Pulse Oximetry (%) 97 Oxygen Delivery Method Room Air Intake Visit Reasons: Urgent appt Intake Note: Hoarse voice, swollen glands x 3 weeks District Supervisor Required: No Accompanied by: Self / Same As Patient Allergies No Known Allergies Allergy (Verified 09/04/24 14:43) Medication List - Last Reconciled 09/04/24 by Conor Cheng MD amlodipine 5 mg PO DAILY atorvastatin 10 mg PO DAILY empagliflozin (Jardiance) 10 mg PO DAILY lorazepam 0.5 mg PO DAILY PRN venlafaxine ER 37.5 mg PO DAILY Tobacco use date assessed: 09/04/24 Dental Screening Dental Screen Date: 09/04/24 Did you have a dental visit in the last 12 months?: Yes Did you have a dental problem in the last 6 months where you did not have access to dental care?: No HPI Urgent appt HPI Details Patient presents for a sick visit. Reporting symptoms of sinus congestion, sore throat and difficulty swallowing. Low-grade fever. No family member is sick. No recent travel. Patient reports symptoms of malaise and fatigue. [facility] Medical History Insomnia Morbid obesity Obstructive sleep apnea Acid reflux Hypercholesteremia HTN (hypertension) Surgical History No pertinent past surgical history Family History Father CAD (coronary artery disease) Mother Hypertension Sister Multiple sclerosis Social History Housing: House Alcohol intake: current Alcohol intake frequency: holidays/special occasions only Alcohol type: beer Patient Tobacco Use Status: Never used Tobacco service: No Current occupational status: employed Cognitive needs: No Hearing needs: No Vision needs: No Questionnaire PHQ-9 Over the last 2 weeks, how often have you been bothered by any of the following problems? 1. Little interest or pleasure in doing things: several days 2. Feeling down, depressed, or hopeless: several days 3. Trouble falling or staying asleep, or sleeping too much: several days 4. Feeling tired or having little energy: several days 5. Poor appetite or overeating: several days 6. Feeling bad about yourself - or that you are a failure or have let yourself or your family down: not at all 7. Trouble concentrating on things, such as reading the newspaper or watching television: not at all 8. Moving or speaking so slowly that other people could have noticed. Or the opposite - being so fidgety or restless that you have been moving around a lot more than usual: not at all 9. Thoughts that you would be better off or of hurting yourself in some way: not at all Total score: 5 Source: Developed by Drs. Nader Boland, Jewell Rodríguez, Antonio Hickman and colleagues, with an educational rachna from [employer]. Thrive Questionnaire Date Thrive assessed: 09/04/24 I am a: Patient What is your living situation today?: I have a steady place to live Within the past 12 months, did the food you bought not last and you didn't have the money to get more?: Never true Within the past 12 months, did you worry whether your food would run out before you got money to buy more?: Never true Do you have trouble paying for medicines?: No Do you have trouble getting transportation to medical appointments?: No Do you have trouble paying your heating and electricity bill?: No Do you have trouble taking care of your child, family member or friend?: No Do you have trouble with day-to-day activities such as bathing, preparing meals, shopping, managing finances, etc.?: No Are you currently unemployed and looking for a job?: No Are you interested in more education?: No THRIVE Score: 0 AUDIT C Alcohol Use Questionnaire (AUDIT-C) 1. How often do you have a drink containing alcohol?: Monthly or less 2. How many drinks containing alcohol do you have on a typical day when you are drinking?: 1 or 2 3. How often do you have six or more drinks on one occasion?: Never Total Score: 1 MURIEL-7 AMB Questionnaire MURIEL-7 Date MURIEL - 7 assessed: 09/04/24 Feeling nervous, anxious, or on edge: 1 = Several days Not being able to stop or control worryin = Several days Worrying too much about different things: 1 = Several days Trouble relaxin = Several days Being so restless that it is hard to sit still: 0 = Not at all Becoming easily annoyed or irritable: 0 = Not at all Feeling afraid as if something awful might happen: 0 = Not at all Total MURIEL-7 score (0-4 normal; 5-9 mild; 10-14 moderate; 15-21 severe): 4 Source: Developed by Drs. Nader Boland, Jewell Rodríguez, Antonio Hickman and colleagues, with an educational rachna from [employer]. Physical exam (Primary Care) Vital Signs: Last Vital Signs Temp 97.8 F 09/04/24 14:21 Pulse 80 09/04/24 14:21 Resp 18 09/04/24 14:21 BP 138/80 09/04/24 14:21 Pulse Ox 97 09/04/24 14:21 Oxygen Delivery Method Room Air 09/04/24 14:21 BMI result Body Mass Index 40.4 Tobacco/Smoking Status: Tobacco use Status Tobacco use date assessed 09/04/24 09/04/24 14:31 Patient Tobacco Use Status Never used Tobacco 09/04/24 14:31 PHQ-9: PHQ-9 Score PHQ-9: Total score 5 09/04/24 14:31 Thrive Assessment: Date of Thrive Assessment Date Thrive assessed 09/04/24 09/04/24 14:31 Const General: cooperative and healthy appearing Nutritional Appearance: well nourished Orientation/consciousness: patient oriented x3 Limitations: no limitations HENMT Head: Yes normal to inspection Eyes General: appearance normal, both eyes and all related structures Neck Neck: Yes normal visual inspection Chest Chest palpation & inspection: normal palpation of entire chest wall Resp Effort & Inspection: normal respiratory effort Neuro General: patient oriented x3 Coding Level of Care Code New Pt Level 4 (07231) Complex EM visit Add On G2211 Diagnoses Upper respiratory tract infection J06.9 Assessment & Plan Assessment & Plan (1) Upper respiratory tract infection: Code(s): J06.9 - Acute upper respiratory infection, unspecified Plan: Antibiotics ordered. Increase fluid intake. Tylenol for aches and pains. If symptoms worsen, follow-up here for a recheck.
[2024-09-04 14:21] VITALS: BP 138/80; PULSE 80; RESP 18; TEMP 36.6; O2SAT 97; BMI 40.4
== END ==
LOC: HO.HMCHD 14:07
PROVIDERS: PCP Internal Medicine; Visit Provider Internal Medicine
DX: J06.9 Acute upper respiratory infection, unspecified (principal)

== ENCOUNTER 2024-10-23 10:57 | Outpatient (AMB) | payer OTHER, SELFPAY ==
[2024-10-23 11:00] VITALS: BP 130/80; PULSE 68; TEMP 36.5; O2SAT 98; BMI 41.6
--- NOTE | 2024-10-23 11:00 | MHC.PC.OV ---
Vital Signs 10/23/24 11:00 Height 5 ft 5 in Weight 113.398 kg BMI 41.6 BP 130/80 Blood Pressure Location Lt brachial Position Sitting Pulse 68 Pulse Source Pulse Oximeter Temp 97.7 F Temp Source Axillary Pulse Oximetry (%) 98 Oxygen Delivery Method Room Air Intake Visit Reasons: Routine Chest Pain Coordinator Required: No Accompanied by: Self / Same As Patient Allergies No Known Allergies Allergy (Verified 10/23/24 11:00) Medication List - Last Reconciled 10/23/24 by MIROSLAVA Hernandez amlodipine 5 mg PO DAILY atorvastatin 10 mg PO DAILY melatonin 5 mg PO BEDTIME Tobacco use date assessed: 10/23/24 Dental Screening Dental Screen Date: 10/23/24 Did you have a dental visit in the last 12 months?: Yes Did you have a dental problem in the last 6 months where you did not have access to dental care?: No HPI HPI Comments History of Present Illness Details 43 year old male with history of non insulin dependent type 2 diabetes, htn, JONO, hld, and morbid obesity presented to the office for routine follow up. He reports compliance with Jardiance and has been tracking his glucose levels daily. Average glucose on the application on his phone is 116, estimated hemoglobin A1c 5.6%. He reports he continues working hard on lifestyle modifications. He is significantly reduced carbohydrate intake and performs resistance training at home. He states he would like to increase cardio activity and has purchased a bike. He states he is still having difficulty with sleep. States he has no difficulty falling asleep but will wake up after several hours and is unable to return to sleep. He is compliant with his CPAP. He has been taking venlafaxine 37.5 mg to help with depression anxiety which was thought to be contributing to his insomnia. He has been following with a therapist at [facility] and reports he is feeling much better as far as his mental health. He reports agitation, irritation, rumination has nearly resolved. He denies any thoughts of self-harm. He does report occasional lightheadedness with headache at work. He denies any palpitations, shortness of breath, chest pain, vision changes. No focal neuro deficits. He has not checked his glucose levels when this occurs. [facility] Medical History (Updated 10/23/24 @ 12:17 by MIROSLAVA Hernandez) Type 2 diabetes mellitus Insomnia Morbid obesity Obstructive sleep apnea Acid reflux Hypercholesteremia HTN (hypertension) Surgical History No pertinent past surgical history Family History (Updated 10/23/24 @ 11:10 by Rabia Bay MA) Father CAD (coronary artery disease) Mother Hypertension Sister Multiple sclerosis Social History Housing: House Alcohol intake: current Alcohol intake frequency: holidays/special occasions only Alcohol type: beer Patient Tobacco Use Status: Never used Tobacco service: No Current occupational status: employed Cognitive needs: No Hearing needs: No Vision needs: No Questionnaire PHQ-9 Over the last 2 weeks, how often have you been bothered by any of the following problems? 1. Little interest or pleasure in doing things: not at all 2. Feeling down, depressed, or hopeless: several days 3. Trouble falling or staying asleep, or sleeping too much: not at all 4. Feeling tired or having little energy: not at all 5. Poor appetite or overeating: not at all 6. Feeling bad about yourself - or that you are a failure or have let yourself or your family down: not at all 7. Trouble concentrating on things, such as reading the newspaper or watching television: not at all 8. Moving or speaking so slowly that other people could have noticed. Or the opposite - being so fidgety or restless that you have been moving around a lot more than usual: not at all 9. Thoughts that you would be better off or of hurting yourself in some way: not at all Total score: 1 Source: Developed by Drs. Nader Boland, Jewell Rodríguez, Antonio Hickman and colleagues, with an educational rachna from [employer]. Thrive Questionnaire Date Thrive assessed: 10/23/24 I am a: Patient Within the past 12 months, did the food you bought not last and you didn't have the money to get more?: Never true Within the past 12 months, did you worry whether your food would run out before you got money to buy more?: Never true Do you have trouble paying for medicines?: No Do you have trouble getting transportation to medical appointments?: No Do you have trouble paying your heating and electricity bill?: No Do you have trouble taking care of your child, family member or friend?: No Do you have trouble with day-to-day activities such as bathing, preparing meals, shopping, managing finances, etc.?: No Are you currently unemployed and looking for a job?: No Are you interested in more education?: No THRIVE Score: 0 AUDIT C Alcohol Use Questionnaire (AUDIT-C) 1. How often do you have a drink containing alcohol?: Never 3. How often do you have six or more drinks on one occasion?: Never Total Score: 0 MURIEL-7 AMB Questionnaire MURIEL-7 Date MURIEL - 7 assessed: 10/23/24 Feeling nervous, anxious, or on edge: 1 = Several days Not being able to stop or control worryin = Not at all Worrying too much about different things: 0 = Not at all Trouble relaxin = Not at all Being so restless that it is hard to sit still: 0 = Not at all Becoming easily annoyed or irritable: 0 = Not at all Feeling afraid as if something awful might happen: 0 = Not at all Total MURIEL-7 score (0-4 normal; 5-9 mild; 10-14 moderate; 15-21 severe): 1 Source: Developed by Drs. Nader Boland, Jewell Rodríguez, Antonio Hickman and colleagues, with an educational rachna from [employer]. Review of Systems Const All systems reviewed & are unremarkable except as noted in HPI and below Physical exam (Primary Care) Vital Signs: Last Vital Signs Temp 97.7 F 10/23/24 11:00 Pulse 68 10/23/24 11:00 BP 130/80 10/23/24 11:00 Pulse Ox 98 10/23/24 11:00 Oxygen Delivery Method Room Air 10/23/24 11:00 BMI result Body Mass Index 41.6 Tobacco/Smoking Status: Tobacco use Status Tobacco use date assessed 10/23/24 10/23/24 11:02 Patient Tobacco Use Status Never used Tobacco 10/23/24 11:02 PHQ-9: PHQ-9 Score PHQ-9: Total score 1 10/23/24 11:27 Thrive Assessment: Date of Thrive Assessment Date Thrive assessed 10/23/24 10/23/24 11:02 Const Other: Constitutional - Awake and Alert, No apparent distress Eyes - PERRLA, EOMI Cardiovascular - S1S2, RRR, No edema Respiratory - Normal lung expansion, Normal respiratory effort, No respiratory distress, CTA bilaterally Extremities - no calf tenderness bilaterally, no swelling Skin - Warm/Dry Neurological - Alert & oriented x3 Psychological - Appropriate affect Coding Level of Care Code Tele Est Pt Level 4 (55367) Diagnoses Type 2 diabetes mellitus E11.9 HTN (hypertension) I10 Obstructive sleep apnea G47.33 Morbid obesity E66.01 Hyperlipemia E78.5 Depression with anxiety F41.8 Lightheadedness R42 Assessment & Plan Assessment & Plan (1) Type 2 diabetes mellitus: Code(s): E11.9 - Type 2 diabetes mellitus without complications Category: Medical Plan: Last hemoglobin A1c 6.0% 07/2024. Average glucose per patient 116, estimated hemoglobin A1c 5.6%. Will discontinue Jardiance 10 mg to reduce risk of hypoglycemia which could be contributing to patient's lightheadedness. Continue tracking glucose levels. Continue with diabetic diet and exercise. Due for diabetic eye exam. Follow-up in 3-4 weeks for updated hemoglobin A1c. Follow up labs prior to next visit ordered. (2) HTN (hypertension): Code(s): I10 - Essential (primary) hypertension Category: Medical Plan: Blood pressure at goal. Continue amlodipine 5mg daily. Low sodium diet. (3) Obstructive sleep apnea: Comment: Severe ,as per his Sleep study on 11/2020, He is being treated with CPAP therapy and he is very compliant. Code(s): G47.33 - Obstructive sleep apnea (adult) (pediatric) Category: Medical Plan: Continue CPAP. Continue with weight loss efforts. (4) Morbid obesity: Comment: BMI= 44.4 down to 41.6 , he is gradually losing weight. Patient still remains morbidly obese, Code(s): E66.01 - Morbid (severe) obesity due to excess calories Category: Medical Plan: Continues with weight loss efforts, encouraged ongoing efforts. Recommended adding cardio activity in addition to his resistance training. Continue low-carbohydrate diet as well as avoidance of overly processed foods. (5) Hyperlipemia: Code(s): E78.5 - Hyperlipidemia, unspecified Category: Medical Plan: LDL at goal, 73. Continue atorvastatin 10mg daily. Continue to recommend low fat diet and increased exercise (6) Depression with anxiety: Code(s): F41.8 - Other specified anxiety disorders Category: Medical Plan: Appears well-controlled. PHQ9 and MURIEL 7 negative. Continue following with therapist. Would like to trial off of the Effexor which is now discontinued. Should symptoms recur, advised to call the office (7) Lightheadedness: Code(s): R42 - Dizziness and giddiness Category: Medical Plan: Suspect related to anxiety versus hypoglycemia. Encouraged to continue working on coping mechanisms as well as checking glucose to monitor for hypoglycemia. Discontinuing Jardiance should reduce the risk of hypoglycemia which could be contributory. Less likely cardiac in etiology. Call the office for ongoing symptoms. Plan Continue medications as recommended. Increase exercise- include both cardio and weight/resistance training. Follow up in 6 months. Orders: Orders Basic Metabolic Panel 3 Months E11.9 - Type 2 diabetes mellitus without complications, E66.01 - Morbid (severe) obesity due to excess calories, I10 - Essential (primary) hypertension Hemoglobin A1c Today E11.9 - Type 2 diabetes mellitus without complications Hemoglobin A1c 3 Months E11.9 - Type 2 diabetes mellitus without complications, E66.01 - Morbid (severe) obesity due to excess calories, I10 - Essential (primary) hypertension TSH reflex Free T4 3 Months E11.9 - Type 2 diabetes mellitus without complications, E66.01 - Morbid (severe) obesity due to excess calories, I10 - Essential (primary) hypertension Complete Blood Count Auto Diff 3 Months E11.9 - Type 2 diabetes mellitus without complications, E66.01 - Morbid (severe) obesity due to excess calories, I10 - Essential (primary) hypertension Medications: New melatonin 5 mg PO BEDTIME 90 caps 0RF Refilled amlodipine 5 mg PO DAILY 90 tabs 1RF atorvastatin 10 mg PO DAILY 90 tabs 1RF
--- OUTSIDE RECORDS SUMMARY | 2024-10-23 13:12 | XMS_ITS | Patient Health Record ---
Author Organization [facility] Address [address] [place] [address] Care Team Providers Care Director Machine Name Role Phone David Iqbal MD Primary Care Provider Ynes Gomez Unavailable [phone] Allergies No Known Allergies Reason For Referral No Information Medications Medication SIG (Take, Route, Frequency, Duration) Notes Start Date End Date Status amLODIPine Besylate 5 MG 1 tablet Orally Once a day for 30 day(s) Active hydroCHLOROthiazide 25 MG 1 tablet in th e morning Orally Once a day for 30 day(s) Active Ciclopirox Olamine 0.77 % APPLY TO AFFEC CORI AREA EXTERNALLY TWICE A DAY for 30 Active Augmentin 500-125 MG 1 tablet Orally melanie ry 12 hrs for 7 day(s) 08/30/2023 Not-Taking Cipro 500 MG 1 tablet Orally ever y 12 hrs for 7 days 08/30/2023 Not-Taking Lamisil 250mg 1 tablet orally Once a day for 30 days 10/18/2023 Not-Taking Ammonium Lactate 12 % USE 1 APPLICATION EXTERNALLY TWICE A DAY 30 DAYS for 30 Active Zolpidem Tartrate 10 MG 1 tablet at bedt mars as needed Orally Once a day Active Atorvastatin Calcium 10 MG 1 tablet Oral ly Once a day for 30 day(s) Active Social History Tobacco Use: Social History Observation Description Date Details (start date - stop date) Never Smoker NA - NA Tobacco Use/Smoking Question Answer Notes Are you a: nonsmoker Additional Findings: Tobacco Non-User Current no n-smoker Alcohol Screen Question Answer Notes Did you have a drink contain ing alcohol in the past year? Yes How often did you have a dri nk containing alcohol in the past year? 2 to 3 times a week (3 points) Points 3 Interpretation Negative Tobacco use other than smoking: Question Answer Notes Are you an other tobacco user? No Vital Signs Height 5ft 8in in 12/06/2023 Weight 265 lbs 12/06/2023 BMI 40.29 kg/m2 12/06/2023 Encounters Encounter Location Date Provider Diagnosis [facility] [address] 12/06/2023 Ynes Perica Tinea pedis of both feet B35.3 and Disorder of the skin and subcutaneous tissue, unspecified L98.9 Assessments Encounter Date Diagnosis (ICD Code) Assessment Notes Treatment Notes Treatment Clinical Notes Section Notes 12/06/2023 Disorder of the skin and subcutaneous tissue, unspecified (ICD-10 - L98.9) 12/06/2023 Tinea pedis of both feet (ICD-10 - B35.3) Plan Of Treatment Pending Test Test Name Order Date *Liver Function Test (LFT) 10/11/2023 Insurance Providers Payer Name Payer Address Payer Phone Subscriber Number Group Number Insured Name Patient Relationship to Insured Coverage Start Date Coverage End Date [employer] Benefits [address] [address] [place] [address] [id number] Anjel Tracy Self - patient is the insured Medical (General) History Medical History History ICD Code Anxiety Back,Hip,and Knee pain Headaches/Migraines High blood pressure Arthritis Sleep apnea Surgical History Surgery Date(Month/Year)
--- OUTSIDE RECORDS SUMMARY | 2024-10-23 13:12 | XMS_ITS ---
Author Organization [facility] Address [address] [facility] [place] [address] Care Team Providers Care Outpatient Interviewing Clerk Name Role Phone David Iqbal MD Primary Care Provider Ynes Gomez Unavailable [phone] Allergies No Known Allergies REASON FOR VISIT Skin Problem Medications Medication SIG (Take, Route, Frequency, Duration) Notes Start Date End Date Status Cipro 500 MG 1 tablet Orally ever y 12 hrs for 7 days 08/30/2023 Not-Taking Augmentin 500-125 MG 1 tablet Orally melanie ry 12 hrs for 7 day(s) 08/30/2023 Not-Taking Ammonium Lactate 12 % 1 application Externally Twice a day for 30 days Active hydroCHLOROthiazide 25 MG 1 tablet in th e morning Orally Once a day for 30 day(s) Active Ciclopirox Olamine 0.77 % APPLY TO AFFEC CORI AREA EXTERNALLY TWICE A DAY for 30 Active amLODIPine Besylate 5 MG 1 tablet Orally Once a day for 30 day(s) Active Atorvastatin Calcium 10 MG 1 tablet Oral ly Once a day for 30 day(s) Active Zolpidem Tartrate 10 MG 1 tablet at bedt mars as needed Orally Once a day Active Social History Tobacco Use: Social History [...] No Vital Signs Height 5ft 8in in 10/11/2023 Weight 265 lbs 10/11/2023 BMI 40.29 kg/m2 10/11/2023 Encounters Encounter Location Date Provider Diagnosis [facility] [address] [place] [address] 10/11/2023 Ynes Perez Tinea pedis of both feet B35.3 and Disorder of the skin and subcutaneous tissue, unspecified L98.9 Assessments Encounter Date Diagnosis (ICD Code) Assessment Notes Treatment Notes Treatment Clinical Notes Section Notes 10/11/2023 Tinea pedis of both feet (ICD-10 - B35.3) 10/11/2023 Disorder of the skin and subcutaneous tissue, unspecified (ICD-10 - L98.9) Plan Of Treatment Pending Test Test Name Order Date *Liver Function Test (LFT) 10/11/2023 Next Appt Details Follow Up: 4-6 Weeks, Reason : Progress Notes * Anjel TRACYDOB:1980 (42 yo M)Acc No.[id number]:10/11/2023 Progress Notes Patient:?Anjel Tracy Provider:?Ynes Perez DPM :1980???Age:42 Y???Sex:Male Aureliano e:10/11/2023 Address:[address] [place] [address], [place], [place] Pcp:David Iqbal MD Subjective: * Chief Complaints: * ???Skin Problem * HPI: ???Skin problems:?Nature:?itching, scaling, sweating.?Location:?Interspace(s)/Between toe(s) L>R Bottom B/L .?Duration:?several months.?Course:?imterspaces are improved.?Treatments:?Medication (Ciclopirox Olamine 0.77 Cream), culture, Augmentin, cipro.? * ROS:?General/Constitutional:?Nausea?denies, denies.?Vomiting?denies, denies.?Hunger Thirst?denies, denies.?Loss appetite?denies, denies.?Chills?denies, denies.?Fatigue?denies, denies.?Fever?denies, denies.?Night Sweats denies, denies.?Unexplained weight loss?denies, denies.?Unexplained weight gain?denies, denies.?HEENTM:?Dentures?denies, denies.?Dizziness?denies, denies.?Glasses/contacts?denies, denies.?Retinopathy?denies, denies.?Blurred/double vision?admits, admits.?TMJ?denies, denies.?Discharge/drainage?denies, denies.?Implants?denies, denies.?Sore throat?denies, denies.?Dental implants?denies, denies.?Hard of hearing ?denies, denies.?Difficulty chewing/swallowing/speaking?denies, denies.?Nose bleeds?denies, denies.?Sore mouth?denies, denies.?Respiratory:?On Oxygen?denies, denies.?Pneumonia/pleurisy?denies, denies.?Bronchitis?denies, denies.?Emphysema?denies, denies.?Coughing?denies, denies.?Cough blood?denies, denies.?Shortness of breath?denies, denies.?Wheezing?denies, denies.?Cardiovascular:?Pacemaker?denies, denies.?MVP?denies, denies.?WPW?denies, denies.?CHF?denies, denies.?Heart attack?denies, denies.?Septal defect?denies, denies.?Rapid beat?denies, denies.?Chest pain ?denies, denies.?Atrial Fib.?denies, denies.?Murmur/Palpitations?denies, denies.?Gastrointestinal:?Hemorrhoids?denies, denies.?Stomach/Abdominal pain?denies, denies.?Dark blood stool?denies, denies.?Irritable bowel ?denies, denies.?Constipation?denies, denies.?Diarrhea?denies, denies.?Hematology:?Swelling?admits, admits.?Clots?denies, denies.?Varicose Veins?denies, denies.?Bruising?denies, denies.?Bleeding problem?denies, denies.?Genitourinary:?Blood urine?denies, denies.?Frequent/Painfu/urination/bladder control?denies, denies.?Kidney stones?denies, denies.?Infection (UTI)?denies, denies.?Nephropathy?denies, denies.?sex trans dis (STD)?denies, denies.?Prostate?denies, denies.?Musculoskeletal:?Hammertoes?denies, denies.?Bunions?denies, denies.?Back Pain?denies, denies.?Muscle Cramps/ Resting?denies, denies.?Muscle cramps / walking?denies, denies.?Generalized aches and pains?admits, admits.?Weakness?denies, denies.?Integ.:?Ramirez?denies, denies.?Scars?denies, denies.?Corns/calluses?admits, admits.?Ingrown nails?admits, admits.?Painful nails?admits,admits.?Open Sores?denies, denies.?Rashes?denies, denies.?Neurologic:?Difficulty sleeping?admits, admits.?Brain disorder?denies, denies.?Numbness?denies, denies.?Balance trouble?denies, denies.?Confusion?denies, denies.?Fainting/blackouts?denies, denies.?Tingling?denies, denies.?Tremors?denies, denies.? * Medical History:? * Surgical History:?No Surgica l History documented. * Hospitalization/Major Diagno stic Procedure:?No Hospitalization History. * Family History:?Mother: asha bennett?Father: alive.? * Social History:?Tobacco Use:?Tobacco Use/Smoking?Are you a:?nonsmoker ?Additional Findings: Tobacco Non-User?Current non-smoker ?Tobacco use other than smoking?Are you an other tobacco user??No ???Drugs/Alcohol:?Drugs?Have you used drugs other than those for medical reasons in the past 12 months??No ?Alcohol Screen?Did you have a drink containing alcohol in the past year??Yes ?How often did you have a drink containing alcohol in the past year??2 to 3 times a week (3 points) ?Points?3 ?Interpretation?Negative ???Miscellaneous:?no Caffeine. ?no Exercise. ?Marital status: single. ?Occupation: Works Full-time [employer]. * Medications:?TakingZolpidem Tartrate 10 MG Tablet 1 tablet at bedtime as needed Orally Once a dayAtorvastatin Calcium 10 MG Tablet 1 tablet Orally Once a dayamLODIPine Besylate 5 MG Tablet 1 tablet Orally Once a dayhydroCHLOROthiazide 25 MG Tablet 1 tablet in the morning Orally Once a dayAmmonium Lactate 12 % Cream 1 application Externally Twice a dayCiclopirox Olamine 0.77 % Cream APPLY TO AFFECTED AREA EXTERNALLY TWICE A DAY Taking Zolpidem Tartrate 10 MG Tablet 1 tablet at bedtime as needed Orally Once a dayTaking Atorvastatin Calcium 10 MG Tablet 1 tablet Orally Once a dayTaking amLODIPine Besylate 5 MG Tablet 1 tablet Orally Once a dayTaking hydroCHLOROthiazide 25 MG Tablet 1 tablet in the morning Orally Once a dayTaking Ammonium Lactate 12 % Cream 1 application Externally Twice a dayTaking Ciclopirox Olamine 0.77 % Cream APPLY TO AFFECTED AREA EXTERNALLY TWICE A DAY Not-Taking/PRNAugmentin 500-125 MG Tablet 1 tablet Orally every 12 hrsCipro 500 MG Tablet 1 tablet Orally every 12 hrsMedication List reviewed and reconciled with the patientNot-Taking/PRN Augmentin 500-125 MG Tablet 1 tablet Orally every 12 hrsNot-Taking/PRN Cipro 500 MG Tablet 1 tablet Orally every 12 hrsMedication List reviewed and reconciled with the patient * Allergies:?N.K.D.A.yes[Aller gies Verified] Objective: * Vitals:?Ht: 5ft 8in, Wt:265, BMI:40.29, Shoe size: 10.5W, Ht-cm: 172.72 cm, Wt- k.2 kg. * Examination: ???General Examination: ?GENERAL APPEARANCE:?Reveals a pleasant, alert, well-nourished, well- developed, well hydrated individual, who demonstrates proper attention to hygiene/body habitus, and is in no acute distress, Pt serves as own?historian for office visit today.?ORIENTED:?person, place, and time.?Neurological: ?SENSORY:?Neurological exam reveals intact sensorium, pain sensation normal, vibration sensation intact, pinprick sensation is normal in the lower extremities, Pt denies, anesthesia, burning, paresthesia, tingling, B/L.?TINEL'S COMPRESSION:? Negative, Saphenous nerve distribution, B/L , Negative tarsal tunnel, clark pedis, and medial calcaneal nerves.?DEEP TENDON REFLEXES:?Achilles, 2/4, B/L.?Vascular: ?DP PULSES:?3/4, B/L.?PT PULSES:?3/4, B/L.?CAPILLARY FILL TIME:?immediate, all digits, B/L.?SKIN TEMPERTURE GRADIENT OF THE LOWER EXTERMITIES:?warm to cool, proximal to distal, B/L.?HAIR GROWTH/TEXTURE/ELASTICITY/TURGOR:?normal, B/L.?PIGMENTATION:?normal, B/L.?EDEMA:?absent, B/L.?Dermatologic: ?SKIN FINDINGS:?Skin STILL, shows sign(s) of, erythema, scaling, in a moccasin fashion, no fissure(s) present, B/L, LESS interdigital maceration 4th interspace B/L.? Assessment: * Assessment: 1.?Disorder of the skin and subcutaneous tissue, unspecified - L98.9?2.?Tinea pedis of both feet - B35.3 (Primary), Acute problem, Complicated w/ Multiple Tx Options(4)? Plan: * Treatment: * Procedure Codes:? * Preventive Medicine:? ??Counseling:?Discussion:?-13: Office or other outpatient visit for the evaluation and management of an established patient, which required a medically appropriate history and/or examination and LOW level of DECISION MAKING for: 1 STABLE ACUTE UNCOMPLICATED PROBLEM, 2 OR MORE MINOR PROBLEMS, OR 1 STABLE CHRONIC PROBLEM, THAT POSE(S) A LOW RISK FOR MORBIDITY/MORTALITY. The visit on the day of the encounter encompassed interpreting the data and educating the patient as to the nature of their condition, treatment options available according to their individual PMH, meds, allergies, and overall health/living conditions, as well as any potential risks or complications that may occur from a failure to adhere to, and participate in, the recommended course of therapy. The discussion included a complete verbal, and/or written explanation of the examination results, any x-rays taken, the proposed diagnosis, and outline of the treatment plan. A schedule for future care needs was also explained. The patient verbalized an understanding of the instructions at this time and agreed to be an active participant in their treatment. If the patient should think of any questions or concerns after the visit, I have encouraged the patient to call the office.?Tinea Pedis:?The patient was counseled on the diagnosis, potential etiologies, and treatment options for their skin condition. We discussed the risks and benefits of each option from performing no treatment, to utilizing OTC topical skin creams, prescription topical creams, customized compounded topical medications, and, if necessary, to utilize oral antifungal therapy. We discussed the advantages and disadvantages of each possible treatment and importance for adherence to all the recommended therapies for optimum success and avoid potential complications such as open sore/infection/possible hospitalization. We discussed the potential effectiveness of each topical preparation as well as each ones possible side effects and/or patient medication interactions if oral therapy is selected. Patient questions re: the advantages and disadvantages of each treatment choice, medication use/dosage, successful outcomes, and application consistency were reviewed and the patient verbalized that all answers were clearly understood. The patient was told they can help alleviate symptoms by utilizing moisture absorbant innersoles with activated charcoal and baking soda, applying antifungal sprays daily, aerating toe web spaces at night by putting cotton or lambs wool between the toes, alternating shoe gear daily if possible so they can dry out, changing socks at least once during the day, wearing well-ventilated shoes or sandals., Rx Lamisil oral antifungal as directed-sent for LFT labs first.? * Follow Up:?4-6 Weeks * Images: * Sign off status: Completed true * Provider:?Ynes Perez DPM Date:? Generated for Luis Miguel busch/Ras/Catia on:?10/23/2024 01:11 PM EDT History and Physical Notes * HPI (History of Present Illness) Category Sub-Category Detail Notes Category Not es Skin problems Nature: itching, scaling, sweating Location: Interspace(s)/Betwee n toe(s) L>R Bottom B/L Duration: several months Course: imterspaces are impr celia Treatments: Medication (Ciclopir ox Olamine 0.77 Cream), culture, Augmentin, cipro Examination Category Sub-Category Detail Notes Category Not es Neurological SENSORY: Neurological exa m reveals intact sensorium, pain sensation normal, vibration sensation intact, pinprick sensation is normal in the lower extremities, Pt denies, anesthesia, burning, paresthesia, tingling, B/L TINEL'S COMPRESSION: Negative, Saphenous nerve distribution, B/L , Negative tarsal tunnel, clark pedis, and medial calcaneal nerves DEEP TENDON REFLEXES: Achilles, 2/4, B/L Dermatologic SKIN FINDINGS: Skin STILL, show s sign(s) of, erythema, scaling, in a moccasin fashion, no fissure(s) present, B/L, LESS interdigital maceration 4th interspace B/L General Examination GENERAL APPEARANCE: Reveals a pleasant, alert, well- nourished, well-developed, well hydrated individual, who demonstrates proper attention to hygiene/body habitus, and is in no acute distress, Pt serves as own historian for office visit today ORIENTED: person, place, and t mars Vascular DP PULSES (B): 3/4, B/L PT PULSES (B): 3/4, B/L CAPILLARY FILL TIME: immediate, all digi ts, B/L TEMPERTURE GRADIENT (C): warm to cool, p roximal to distal, B/L TROPHIC CONDITION-TEXTURE/ELASTICITY/TURGOR/HAIR GROWTH (B): normal, B/L EDEMA (C): absent, B/L PIGMENTATION: normal, B/L
--- OUTSIDE RECORDS SUMMARY | 2024-10-23 13:12 | XMS_ITS ---
Author Organization [facility] Address [address] [place] [address] Care Team Providers Care Budget Accountant Name Role Phone David Iqbal MD Primary Care Provider Ynes Gomez [phone] REASON FOR VISIT labs Medications Medication SIG (Take, Route, Frequency, Duration) Notes Start Date End Date Status Lamisil 250mg 1 tablet orally Once a day for 30 days 10/18/2023 Active Encounters Encounter Location Date Provider [facility] [address] [place] [address] 10/11/2023 Ynes Perez Plan Of Treatment Medication Medication Name Sig Start Date Stop Date Notes Lamisil 250mg 1 tablet orally Once a day for 30 days 10/17 Progress Notes * Anjel TRACYDOB:1980 (42 yo M)Acc No.[id number]:10/11/2023 Patient:?Anjel Tracy :1980???Age:42 Y???Sex:Male Address:[address] [place] [address], [place], [address] * Refills? Start Lamisil tablet, 250mg, orally, 30 Tablet, 1 tablet, Once a day, 30 days, Refills=0 * true * Date:? Generated for Printi ng/Famaykelg/eTransmitting on:?10/23/2024 01:12 PM EDT
--- OUTSIDE RECORDS SUMMARY | 2024-10-23 13:12 | XMS_ITS ---
Author Organization [facility] Address [address] [place] [address] Care Team Providers Care Buffer Chrome Name Role Phone David Iqbal MD Primary Care Provider Jodya luzma ParrjoyYnes Unavailable [phone] Allergies No Known Allergies REASON FOR VISIT pt states last pcp visit 10/2023, Skin Problem Medications Medication SIG (Take, Route, Frequency, Duration) Notes Start Date End Date Status Ciclopirox Olamine 0.77 % APPLY TO AFFEC [...] A DAY 30 DAYS for 30 Active amLODIPine Besylate 5 MG [...] 12/06/2023 Encounters Encounter Location Date Provider Diagnosis [facility] [address] [place] [address] 12/06/2023 Ynes Perez Tinea pedis of both feet B35.3 and Disorder of the skin and subcutaneous tissue, unspecified L98.9 Assessments Encounter Date Diagnosis (ICD Code) Assessment Notes Treatment Notes Treatment Clinical Notes Section Notes 12/06/2023 Tinea pedis of both feet (ICD-10 - B35.3) 12/06/2023 Disorder of the skin and subcutaneous tissue, unspecified (ICD-10 - L98.9) Plan Of Treatment Next Appt Details Follow Up: prn, Reason: Progress Notes * Anjel TRACYDOB:1980 (43 yo M)Acc No.[id number]:12/06/2023 Progress Notes Patient:?Anjel Tracy Provider:?Ynes Perez DPM :1980???Age:43 Y???Sex:Male Aureliano e:12/06/2023 Address:[address] [place] [address], [facility] Pcp:David Iqbal MD Subjective: * Chief Complaints: * ???Pt states last pcp visit 10/2023Skin Problem * HPI: ???Skin problems:?Nature:?itching, scaling, sweating.?Location:?Interspace(s)/Between toe(s) L>R Bottom B/L .?Duration:?several months.?Course:?improved.?Treatments:?Medication (Ciclopirox Olamine 0.77 Cream), culture, Augmentin, cipro, 2 weeks of Lamisil- related side effect of loss of taste.? * ROS:?General/Constitutional:?Nausea?denies.?Vomiting?denies.?Hunger Thirst?denies.?Loss appetite?denies.?Chills?denies.?Fatigue?denies.?Fever?denies.?Night Sweats?denies.?Unexplained weight loss?denies.?Unexplained weight gain?denies.?HEENTM:?Dentures?denies.?Dizziness?denies.?Glasses/contacts?denies.?Retinopathy?de nies.?Blurred/double vision?admits.?TMJ?denies.?Discharge/drainage?denies.?Implants?denies.?Sore throat?denies.?Dental implants?denies.?Hard of hearing ?denies.?Difficulty chewing/swallowing/speaking?denies.?Nose bleeds?denies.?Sore mouth?denies.?Respiratory:?On Oxygen?denies.?Pneumonia/pleurisy?denies.?Bronchitis?denies.?Emphysema?denies.?C oughing?denies.?Cough blood?denies.?Shortness of breath?denies.?Wheezing?denies.?Cardiovascular:?Pacemaker?denies.?MVP?denies.?WPW?denies.?CHF?denies.?Heart attack?denies.?Septal defect?denies.?Rapid beat?denies.?Chest pain ?denies.?Atrial Fib.?denies.?Murmur/Palpitations?denies.?Gastrointestinal:?Hemorrhoids?denies.?Stomach/Abdominal pain?denies.?Dark blood stool?denies.?Irritable bowel ?denies.?Constipation?denies.?Diarrhea?denies.?Hematology:?Swelling?admits.?Clots?denies.?Varicose Veins?denies.?Bruising?denies.?Bleeding problem?denies.?Genitourinary:?Blood urine?denies.?Frequent/Painfu/urination/bladder control?denies.?Kidney stones?denies.?Infection (UTI)?denies.?Nephropathy?denies.?sex trans dis (STD)?denies.?Prostate?denies.?Musculoskeletal:?Hammertoes?denies.?Bunions?denies.?Back Pain?denies.?Muscle Cramps/ Resting?denies.?Muscle cramps / walking?denies.?Generalized aches and pains?admits.?Weakness?denies.?Integ.:?Ramirez?denies.?Scars?denies.?Corns/calluses?admits.?Ingrown nails?denies.?Painful nails?denies.?Open Sores?denies.?Rashes?denies.?Neurologic:?Difficulty sleeping?admits.?Brain disorder?denies.?Numbness?denies.?Balance trouble?denies.?Confusion?denies.?Fainting/blackouts?denies.?Tingling?denies.?Tr emors?denies.? * Medical History:? * Surgical History:?No Surgica l History documented. * Hospitalization/Major Diagno stic Procedure:?No Hospitalization History. * Family History:?Mother: asha e.?Father: alive.? * Social History:?Tobacco Use:?Tobacco Use/Smoking?Are you [...] Exercise. ?Marital status: single. ?Occupation: Works Full-time [employer]. * Medications:?TakingZolpidem Tartrate 10 MG Tablet 1 tablet at bedtime as needed Orally Once a dayAtorvastatin Calcium 10 MG Tablet 1 tablet Orally Once a dayamLODIPine Besylate 5 MG Tablet 1 tablet Orally Once a dayhydroCHLOROthiazide 25 MG Tablet 1 tablet in the morning Orally Once a dayCiclopirox Olamine 0.77 % Cream APPLY TO AFFECTED AREA EXTERNALLY TWICE A DAY Ammonium Lactate 12 % Cream USE 1 APPLICATION EXTERNALLY TWICE A DAY 30 DAYS Taking Zolpidem Tartrate 10 MG Tablet 1 tablet at bedtime as needed Orally Once a dayTaking Atorvastatin Calcium 10 MG Tablet 1 tablet Orally Once a dayTaking amLODIPine Besylate 5 MG Tablet 1 tablet Orally Once a dayTaking hydroCHLOROthiazide 25 MG Tablet 1 tablet in the morning Orally Once a dayTaking Ciclopirox Olamine 0.77 % Cream APPLY TO AFFECTED AREA EXTERNALLY TWICE A DAY Taking Ammonium Lactate 12 % Cream USE 1 APPLICATION EXTERNALLY TWICE A DAY 30 DAYS Not-Taking/PRNLamisil 250mg tablet 1 tablet orally Once a dayAugmentin 500- 125 MG Tablet 1 tablet Orally every 12 hrsCipro 500 MG Tablet 1 tablet Orally every 12 hrsMedication List reviewed and reconciled with the patientNot-Taking/PRN Lamisil 250mg tablet 1 tablet orally Once a dayNot-Taking/PRN Augmentin 500-125 MG Tablet 1 tablet Orally every 12 hrsNot-Taking/PRN Cipro 500 MG Tablet 1 tablet Orally every 12 hrsMedication List reviewed and reconciled with the patient * Allergies:?N.K.D.A.yes[Aller gies Verified] Objective: * Vitals:?Ht: 5ft 8in, Wt: 265 , BMI:40.29, Shoe size: 10.5w. * Examination: ???General Examination: ?GENERAL APPEARANCE:?Reveals a [...] B/L.?HAIR GROWTH/TEXTURE/ELASTICITY/TURGOR:?normal, B/L.?PIGMENTATION:?normal, B/L.?EDEMA:?absent, B/L.?Dermatologic: ?SKIN FINDINGS:?Skin approximately _75__% LESS,?sign(s) of, erythema, scaling, in a moccasin fashion, no fissure(s) present, B/L, 75% LESS interdigital maceration 4th interspace B/L.? Assessment: * Assessment: 1.?Disorder of the skin and subcutaneous tissue, unspecified - L98.9?2.?Tinea pedis of both feet - B35.3 (Primary), Acute problem, Stable (1=3)? Plan: * Treatment: * Procedure Codes:? * [...] encouraged the patient to call the office.?Tinea Pedis:?Given recent successful results to treatment, The patient is to cont the rx cream as directed.? * Follow Up:?prn * Images: * Sign off status: Completed true * Provider:?Ynes Perez DPM Date:?03/2024 Generated for Luis Miguel Perla/Catia on:?10/23/2024 01:12 PM EDT History and Physical Notes * HPI (History of Present Illness) Category Sub-Category Detail Notes Category Not es Skin problems Nature: itching, scaling, sweating Location: Interspace(s)/Betwee n toe(s) L>R Bottom B/L Duration: several months Course: improved Treatments: Medication (Ciclopir ox Olamine 0.77 Cream), culture, Augmentin, cipro, 2 weeks of Lamisil- related side effect of loss of taste Examination Category Sub-Category Detail Notes Category Not [...] Achilles, 2/4, B/L Dermatologic SKIN FINDINGS: Skin approximate ly _75__% LESS, sign(s) of, erythema, scaling, in a moccasin fashion, no fissure(s) present, B/L, 75% LESS interdigital maceration 4th interspace B/L General [...]
== END 2024-10-23 11:33 | disposition home or self-care (01) ==
LOC: HO.HMCHD 10:58
PROVIDERS: PCP Internal Medicine; Visit Provider Physician Assistant
DX: E11.69 Type 2 diabetes mellitus with other specified complication (principal); E66.01 Morbid (severe) obesity due to excess calories; E78.5 Hyperlipidemia, unspecified; I10 Essential (primary) hypertension; G47.33 Obstructive sleep apnea (adult) (pediatric); F41.8 Other specified anxiety disorders; R42 Dizziness and giddiness

== ENCOUNTER → 2024-10-23 10:57 | Outpatient (BNVA) | payer OTHER, SELFPAY | PROVIDERS: PCP Internal Medicine; Visit Provider Internal Medicine | DX: Z13.89 Encounter for screening for other disorder (principal) ==

== ENCOUNTER 2024-11-13 08:26 | Outpatient (REF) | payer OTHER, SELFPAY ==
--- NOTE | ~2024-11-13 | XR_ITS ---
CLINICAL HISTORY: E11.628 - Type 2 diabetes mellitus with other skin complications --- Additional Not es or Special Instructions: r o osteo Exam: AP, lateral, and oblique views of the left foot. Comparison: January 27, 2023. Findings: Alignment of the Lisfranc articulation is anatomic. No acute fracture. Mild degenerative change of the great toe. Small os peroneus. Small calcification of the distal Achilles tendon with small plantar calcaneal spur. Impression: Chronic changes as above This document has been electronically signed by: Lucas Terrazas MD on 11/14/2024 06:26:26
[2024-11-13 09:06] LABS: MANUAL DIFF FLAG NO
[2024-11-13 09:16] LABS: Basophils Percent Auto 0.2 % (0-2); Eosinophils Absolute Auto 0.1 X10*3/uL (0.0-0.4); Eosinophils Percent Auto 1.6 % (0-4); Hematocrit 47.7 % (42.0-52.0); Hemoglobin 16.3 g/dl (14.0-18.0); Imm Gran Abs Auto 0.02 X10*3/uL (0.00-0.03); Imm Gran Pct Auto 0.3 % (0.0-0.4); Lymphocytes Absolute Auto 1.6 X10*3/uL (1.2-4.9); Lymphocytes Percent Auto 25.8 % (20-40); Mean Corpuscular HGB Conc 34.2 g/dl (31.0-36.0); Mean Corpuscular Hemoglobin 31.1 pg (27.0-33.0); Mean Platelet Volume 8.9 fL (9.4-12.4); Monocytes Absolute Auto 0.8 X10*3/uL (0.1-1.2); Neutrophils Absolute Auto 3.7 x10*3/uL (2.0-8.3); Neutrophils Percent Auto 59.1 % (45-73); Platelet Count 197 X10*3/uL (160-400); Red Blood Count 5.24 X10*6/uL (4.60-5.80); Red Cell Distribution Width 13.5 % (11.0-16.0); White Blood Count 6.2 X10*3/uL (4.8-10.8)
[2024-11-13 09:27] LABS: Estimated Average Glucose 128 mg/dL; Hemoglobin A1C 182.5028 umol/L; Hemoglobin A1c % 6.1 % (<6.0); Total Hemoglobin (HGBA1C) 4188.2082 umol/L
[2024-11-13 09:50] LABS: C Reactive Protein 0.16 mg/dL (< or = 0.50)
[2024-11-13 09:55] LABS: Erythrocyte Sedimentation Rate 2 MM/HR (0-15)
== END 2024-11-13 08:27 | disposition home or self-care (01) ==
LOC: HO.XRAY 08:26
PROVIDERS: PCP Internal Medicine; Visit Provider Physician Assistant
DX: E11.628 Type 2 diabetes mellitus with other skin complications (principal); L08.9 Local infection of the skin and subcutaneous tissue, unspecified
CPT/HCPCS: 36415; 73630; 83036; 85025; 85652; 86140

== ENCOUNTER 2024-11-13 08:26 | Outpatient (AMB) | payer OTHER, SELFPAY ==
--- NOTE | 2024-11-13 08:28 | A.OFFPC_ITS ---
Vital Signs 11/13/24 08:33 Height 5 ft 5 in Weight 113.398 kg BMI 41.6 BP 140/84 H Respiration 16 Pulse 77 Pulse Source Pulse Oximeter Temp 97.9 F Temp Source Temporal Artery Scan Pulse Oximetry (%) 97 Oxygen Delivery Method Room Air Intake Visit Reasons: Routine / Toe Bank Teller Required: No Accompanied by: Self / Same As Patient Allergies No Known Allergies Allergy (Verified 11/13/24 08:32) Medication List - Last Reconciled 11/13/24 by MIROSLAVA Hernandez amlodipine 5 mg PO DAILY amoxicillin-pot clavulanate 875-125 mg 1 tab PO Q12H atorvastatin 10 mg PO DAILY melatonin 5 mg PO BEDTIME venlafaxine ER 37.5 mg PO DAILY Tobacco use date assessed: 10/23/24 Dental Screening Dental Screen Date: 10/23/24 HPI HPI Comments History of Present Illness Details 44 year old male with history of type 2 diabetes and depression presents to the office today for evaluation of pain of the L small toe with a shallow ulceration which he describes as a callous between the 4th and 5th toes. He has been using antifungal cream with little effect. Occasionally the pain radiates up the lower leg. No fevers, chills, purulent drainage. He has been wearing wider shoes as well and keeping the area clean. He does have a corporate development intern but has not been able to get an appt til the end of january. He has been calling other offices but has been unable to secure an appointment sooner than December. At last visit we discontinued venlafaxine as he has been doing well but quickly had recurrence of symptoms. He has since restarted the medication and is doing well. No SI/HI. General: No fevers, malaise, unintentional weight loss Cardiovascular: No chest pain, palpitations, or leg edema Respiratory: No shortness of breath, wheezing, cough MSK: See HPI Neuro: No headaches, weakness, paresthesias Skin: See HPI Exam: Constitutional - Awake and Alert, No apparent distress Eyes - PERRLA, EOMI Cardiovascular - S1S2, RRR, No edema Respiratory - Normal lung expansion, Normal respiratory effort, No respiratory distress, CTA bilaterally Extremities - no calf tenderness bilaterally, no swelling Skin - Warm/Dry. L 5th toe- no significant swelling, erythema, or warmth. Toe has full ROM. TTP on dorsum of toe. Between 4th and 5th toes is a macerated callous with slight avulsion revealing clean moist pink tissue. No purulent drainage. Neurological - Alert & oriented x3, sensation in tact Psychological - Appropriate affect PFSH Medical History (Updated 11/13/24 @ 11:03 by MIROSLAVA Hernandez) Type 2 diabetes mellitus Insomnia Morbid obesity Obstructive sleep apnea Acid reflux Hypercholesteremia HTN (hypertension) Surgical History No pertinent past surgical history Family History (Updated 10/23/24 @ 11:10 by Rabia Bay MA) Father CAD (coronary artery disease) Mother Hypertension Sister Multiple sclerosis Social History Housing: House Alcohol intake: current Alcohol intake frequency: holidays/special occasions only Alcohol type: beer Patient Tobacco Use Status: Never used Tobacco service: No Current occupational status: employed Cognitive needs: No Hearing needs: No Vision needs: No Questionnaire Thrive Questionnaire Date Thrive assessed: 10/23/24 MURIEL-7 AMB Questionnaire MURIEL-7 Date MURIEL - 7 assessed: 10/23/24 Source: Developed by Drs. Nader Boland, Jewell Rodríguez, Antonio Hickman and colleagues, with an educational rachna from [employer]. Physical exam (Primary Care) Vital Signs: Last Vital Signs Temp 97.9 F 11/13/24 08:33 Pulse 77 11/13/24 08:33 Resp 16 11/13/24 08:33 BP 140/84 H 11/13/24 08:33 Pulse Ox 97 11/13/24 08:33 Oxygen Delivery Method Room Air 11/13/24 08:33 BMI result Body Mass Index 41.6 Tobacco/Smoking Status: Tobacco use Status Tobacco use date assessed 10/23/24 11/13/24 08:30 Patient Tobacco Use Status Never used Tobacco 11/13/24 08:30 Thrive Assessment: Date of Thrive Assessment Date Thrive assessed 10/23/24 11/13/24 08:30 Coding Level of Care Code Est Pt Level 4 (78244) Complex EM visit Add On G2211 Diagnoses Callus between toes L84 Type 2 diabetes mellitus E11.9 Depression with anxiety F41.8 Assessment & Plan Assessment & Plan (1) Callus between toes: Code(s): L84 - Corns and callosities Category: Medical Plan: with ulceration. Given history of type 2 diabetes, will cover for bacterial infection including pseudomoas with augmentin 875mg BID x 7 days. Recommend foam dressing cut so that the area is covered. Clean well twice daily. Pt was able to schedule sooner appt with corporate development intern to November 27 which he should keep. Monitor for signs of infection including purulent drainage, surrounding redness, or fevers. XRay, ESR, CRP ordered to rule out osteomyelitis. (2) Type 2 diabetes mellitus: Code(s): E11.9 - Type 2 diabetes mellitus without complications Category: Medical Plan: Hgb A1c ordered. Continue with diabetic diet and exercise. Continue working towards weight loss. Continue with annual eye and foot exams. (3) Depression with anxiety: Code(s): F41.8 - Other specified anxiety disorders Category: Medical Plan: Stable. Pt restarted venlafaxine with good effect. Continue with medication as prescribed and continue following with therapist. Plan Follow up with corporate development intern soon. Take abx as prescribed. Labs and xr to be completed today Orders: Orders Complete Blood Count Auto Diff Today E11.628 - Type 2 diabetes mellitus with other skin complications, E11.9 - Type 2 diabetes mellitus without complications, L08.9 - Local infection of the skin and subcutaneous tissue, unspecified Erythrocyte Sedimentation Rate Today E11.628 - Type 2 diabetes mellitus with other skin complications, E11.9 - Type 2 diabetes mellitus without complications, L08.9 - Local infection of the skin and subcutaneous tissue, unspecified Hemoglobin A1c Today E11.628 - Type 2 diabetes mellitus with other skin complications, E11.9 - Type 2 diabetes mellitus without complications, L08.9 - Local infection of the skin and subcutaneous tissue, unspecified C Reactive Protein Today E11.628 - Type 2 diabetes mellitus with other skin complications, E11.9 - Type 2 diabetes mellitus without complications, L08.9 - Local infection of the skin and subcutaneous tissue, unspecified Medications: New amoxicillin-pot clavulanate 875-125 mg 1 tab PO Q12H 14 tabs 0RF
--- OUTSIDE RECORDS SUMMARY | 2024-11-13 08:32 | XMS_ITS ---
Author Organization [facility] Address [address] [facility] [address] [place] [address] Care Team Providers Care Overnight Associate Name Role Phone David Iqbal MD Primary Care Provider Anneliese ParrjoyYnes Unavailable [phone] Allergies No Known Allergies REASON FOR VISIT [...] 10/11/2023 Encounters Encounter Location Date Provider Diagnosis [facility] [address] [address] 10/11/2023 Ynes Perez Tinea pedis of both [...] Details Follow Up: 4-6 Weeks, Reason : Provider Name:Ynes hamilton, 01/01/2025 02:45:00 PM, [address] [place] [address], [place], [address], Progress Notes * Anjel TRACYDOB:1980 (42 yo M)Acc No.[id number]:10/11/2023 Progress Notes Patient:?Anjel Tracy Provider:?Ynes Perez DPM :1980???Age:42 Y???Sex:Male Aureliano e:10/11/2023 Address:[address] [place] [address], [facility] [id number] Pcp:David Iqbal MD Subjective: * Chief Complaints: [...] Procedure:?No Hospitalization History. * Family History:?Mother: asha mandel.?Father: alive.? * Social History:?Tobacco Use:?Tobacco Use/Smoking?Are you [...] Exercise. ?Marital status: single. ?Occupation: Works Full-time in[employer]. * Medications:?TakingZolpidem Tartrate 10 MG Tablet 1 [...] DPM Date:? Generated for Luis Miguel busch/Ras/Catia on:?11/13/2024 08:31 AM EDT History and Physical Notes * HPI [...]
--- OUTSIDE RECORDS SUMMARY | 2024-11-13 08:32 | XMS_ITS ---
Author Organization [facility] Address [address] [place] [address] Care Team Providers Care Clinical Engineering Manager Name Role Phone David Iqbal MD Primary Care Provider Ynes Gomez [phone] REASON FOR VISIT labs Medications Medication SIG (Take, Route, Frequency, Duration) Notes Start Date End Date Status Lamisil 250mg 1 tablet orally Once a day for 30 days 10/18/2023 Active Encounters Encounter Location Date Provider Diagnosis [facility] [address] [place] [address] 10/11/2023 Ynes Perez Plan Of Treatment Medication Medication Name Sig Start Date Stop Date Notes Lamisil 250mg 1 tablet orally Once a day for 30 days 10/17 Next Appt Details Provider Name:Ynes hamilton, 01/01/2025 02:45:00 PM, [address] [place], [address], Progress Notes * Anjel TRACYDOB:1980 (42 yo M)Acc No.[id number]:10/11/2023 Patient:?Anjel Tracy :1980???Age:42 Y???Sex:Male Address:[address] [place] [address], [place], [address] * Refills? Start Lamisil tablet, 250mg, orally, 30 Tablet, 1 tablet, Once a day, 30 days, Refills=0 * true * Date:? Generated for Luis Miguel busch/Ras/Aracelyitting on:?11/13/2024 08:32 AM EDT
--- OUTSIDE RECORDS SUMMARY | 2024-11-13 08:32 | XMS_ITS ---
Author Organization [facility] Address [address] [facility] [address] [place] [address] Care Team Providers Care Certified Orthotist Practice Manager Name Role Phone David Iqbal MD Primary Care Provider Jodya luzma ParrjoyYnes Unavailable [phone] Allergies No Known Allergies REASON FOR VISIT [...] 12/06/2023 Encounters Encounter Location Date Provider Diagnosis [facility] [address] [address] 12/06/2023 Ynes Perez Tinea pedis of both [...] Next Appt Details Follow Up: prn, Reason: Provider Name:Ynes hamilton, 01/01/2025 02:45:00 PM, [address] [facility], [place], [address], Progress Notes * Anjel TRACYDOB:1980 (43 yo M)Acc No.[id number]:12/06/2023 Progress Notes Patient:?Anjel Tracy Provider:?Ynes Perez DPM :1980???Age:43 Y???Sex:Male Aureliano e:12/06/2023 Address:[address] [place] [address], [place], [place] Pcp:David Iqbal MD Subjective: * Chief Complaints: [...] Exercise. ?Marital status: single. ?Occupation: Works Full-time [employer]. * Medications:?TakingZolpidem Tartrate 10 MG Tablet 1 [...] Perez DPM Date:?03/2024 Generated for Luis Miguel busch/Ras/Catia on:?11/13/2024 08:32 AM EDT History and Physical Notes * [...]
--- OUTSIDE RECORDS SUMMARY | 2024-11-13 08:32 | XMS_ITS | Patient Health Record ---
Author Organization [facility] Address [address] [facility] [place] [place] [address] Care Team Providers Care Health And Fitness Professor Name Role Phone David Iqbal MD Primary Care Provider Ynes Gomez Unavailable [phone] Allergies No Known Allergies Reason For Referral [...] 12/06/2023 Encounters Encounter Location Date Provider Diagnosis [facility] [place] [address] [place] [address] 12/06/2023 Ynes Perez Tinea pedis of both [...] Function Test (LFT) 10/11/2023 Next Appt Details Provider Name:Ynes Hamilton Keshav hamilton, 01/01/2025 02:45:00 PM, [address] [facility], [place], [address], Insurance Providers Payer Name Payer Address Payer Phone Subscriber Number Group Number Insured Name Patient Relationship to Insured Coverage Start Date Coverage End Date Blue Benefits [address] [address] [place] [address] [id number] Anjel Tracy Self - patient is the insured Medical (General) History Medical History History ICD Code Anxiety Back,Hip,and Knee pain Headaches/Migraines High blood pressure Arthritis Sleep apnea Surgical History Surgery Date(Month/Year)
[2024-11-13 08:33] VITALS: BP 140/84; PULSE 77; RESP 16; TEMP 36.6; O2SAT 97; BMI 41.6
== END 2024-11-13 09:12 | disposition home or self-care (01) ==
LOC: HO.HMCHD 08:26
PROVIDERS: PCP Internal Medicine; Visit Provider Physician Assistant
DX: L84 Corns and callosities (principal); E11.9 Type 2 diabetes mellitus without complications; F41.8 Other specified anxiety disorders

== ENCOUNTER → 2024-11-13 09:06 | Outpatient (BNV) | payer OTHER, SELFPAY | PROVIDERS: PCP Internal Medicine; Visit Provider Radiology Diagnostic Radiology | DX: E11.628 Type 2 diabetes mellitus with other skin complications (principal) | CPT/HCPCS: 73630 ==

== ENCOUNTER 2024-12-04 08:26 | Outpatient (REF) | payer OTHER, SELFPAY ==
--- OUTSIDE RECORDS SUMMARY | 2024-12-04 08:34 | XMS_ITS | Patient Health Record ---
Author Organization [facility] Address [address] [facility] [place] [address] Care Team Providers Care Film Waxer Name Role Phone David Iqbal MD Primary Care Provider Unavaila Ynes Ayers Unavailable [phone] Allergies No Known Allergies Results Component Value Reference Range Notes HEMOGLOBIN A1C (GLYCOHEMOGLO BIN) Reviewed date:11/27/2024 01:39:04 PM Interpretation: Performing Lab: Notes/Report: HEMOGLOBIN A1C % (HH) 6.1 Reason For Referral No Information Medications Medication SIG (Take, Route, Frequency, Duration) Notes Start Date End Date Status Melatonin 5 MG 1 tablet in the evening Orally Once a day Active Zolpidem Tartrate 10 MG 1 tablet at bedt mars as needed Orally Once a day Not-Taking Venlafaxine HCl 37.5 MG 1 tablet with fo od Orally Once a day Active Terbinafine HCl 250 MG 1 tablet Orally O nce a day for 14 days 11/27/2024 Active amLODIPine Besylate 5 MG 1 tablet Orally Once a day for 30 day(s) Active Atorvastatin Calcium 10 MG 1 tablet Oral ly Once a day for 30 day(s) Active Ciclopirox Olamine 0.77 % APPLY TO AFFEC CORI AREA EXTERNALLY TWICE A DAY for 30 Active hydroCHLOROthiazide 25 MG 1 tablet in th e morning Orally Once a day for 30 day(s) Not-Taking LamISIL 250mg 1 tablet orally Once a day for 30 days 10/18/2023 Not-Taking Ammonium Lactate 12 % USE 1 APPLICATION EXTERNALLY TWICE A DAY 30 DAYS for 30 Not-Taking Cipro 500 MG 1 tablet Orally ever y 12 hrs for 7 days 08/30/2023 Not-Taking Augmentin 500-125 MG 1 tablet Orally melanie ry 12 hrs for 7 day(s) 08/30/2023 Not-Taking Ketoconazole 2 % 1 application Apply a thin layer to externally to feet, even between toes Twice a day for 30 days Active Social History Tobacco Use: Social History Observation Description Date Details (start date - stop date) Never Smoker NA - NA Tobacco use other than smoking: Question Answer Notes Are you an other tobacco user? No Tobacco Control (Standard) Question Answer Notes Tobacco use: Nonsmoker Additional Findings: Tobacco non-user Current no nsmoker AUDIT-C (Standard) Question Answer Notes Did you have a drink contain ing alcohol in the past year? Yes How often did you have a dri nk containing alcohol in the past year? Monthly or less (1 point) How many drinks did you have on a typical day when you were drinking in the past year? 1 or 2 drinks (0 point) How often did you have six o r more drinks on one occasion in the past year? Never (0 point) Points 1 Interpretation Negative Problems Problem Type SNOMED Code ICD Code Onset Dates Problem Status W/U Status Risk Notes Problem [id number] Hammertoe of left foot (M20.42) Active confirmed Problem 24116071 Type 2 diabetes mellitus without complication, without long-term current use of insulin (E11.9) Active confirmed Vital Signs Blood pressure diastolic 70 mm Hg 11/27/2024 Height 5ft 8in in 11/27/2024 Blood pressure systolic 120 mm Hg 11/27/2024 Weight 265 lbs 11/27/2024 BMI 40.29 kg/m2 11/27/2024 Encounters Encounter Location Date Provider Diagnosis [address] [address] 12/06/2023 Ynes Perica Tinea pedis of both feet B35.3 and Disorder of the skin and subcutaneous tissue, unspecified L98.[address] [address] 11/27/2024 Ynes Perica Tinea pedis of both feet B35.3 ; Type 2 diabetes mellitus without complication, without long-term current use of insulin E11.9 ; Toe pain, left M79.675 and Hammertoe of left foot M20.42 [facility] [address] [address] 11/27/2024 Ynes Perez Assessments Encounter Date Diagnosis (ICD Code) Assessment Notes Treatment Notes Treatment Clinical Notes Section Notes 12/06/2023 Disorder of the skin and subcutaneous tissue, unspecified (ICD-10 - L98.9) 12/06/2023 Tinea pedis of both feet (ICD-10 - B35.3) 11/27/2024 Type 2 diabetes mellitus without complication, without long-term current use of insulin (ICD-10 - E11.9) 11/27/2024 Tinea pedis of both feet (ICD-10 - B35.3) 11/27/2024 Toe pain, left (ICD-10 - M79.675) 11/27/2024 Hammertoe of left foot (ICD-10 - M20.42) Plan Of Treatment Pending Test Test Name Order Date *Liver Function Test (LFT) 10/11/2023 *Liver Function Test (LFT) 11/27/2024 Next Appt Details Provider Name:Ynes hamilton, 01/01/2025 02:45:00 PM, [address] [place] [address], [place], [address], Insurance Providers Payer Name Payer Address Payer Phone Subscriber Number Group Number Insured Name Patient Relationship to Insured Coverage Start Date Coverage End Date Blue Benefits [address] [address] [place] [address] [id number] Anjel Tracy Self - patient is the insured Medical (General) History Medical History History ICD Code Anxiety Back,Hip,and Knee pain Headaches/Migraines High blood pressure Arthritis Sleep apnea Diabetic Surgical History Surgery Date(Month/Year)
[2024-12-04 09:09] LABS: Alanine Aminotransferase 43 U/L (0-40); Albumin Level 4.4 g/dL (3.5-5.0); Alkaline Phosphatase 95 U/L (39-117); Aspartate Amino Transferase 46 U/L (5-37); Bilirubin Direct 0.2 mg/dL (0.0-0.5); Bilirubin Total 0.5 mg/dL (0.0-1.0); Total Protein 7.3 g/dL (6.5-8.0)
== END 2024-12-04 08:27 | disposition home or self-care (01) ==
LOC: HO.LAB 08:26
PROVIDERS: PCP Physician Assistant; Visit Provider Podiatrist
DX: B35.3 Tinea pedis (principal)
CPT/HCPCS: 36415; 80076

== ENCOUNTER 2025-01-09 13:04 | Emergency (ER) | payer OTHER, SELFPAY ==
--- NOTE | 2025-01-09 13:08 | ECG_ITS ---
Test Reason : tachycardia Blood Pressure : */* mmHG Vent. Rate : 100 BPM Atrial Rate : 100 BPM P-R Int : 164 ms QRS Dur : 86 ms QT Int : 336 ms P-R-T Axes : 43 96 -4 degrees QTcB Int : 433 ms Normal sinus rhythm Rightward axis Abnormal ECG When compared with ECG of 31-Dec-2001 12:34, Vent. rate has increased by [address] no longer elevated in Inferior leads Inverted T waves have replaced nonspecific T wave abnormality in Inferior leads Referred By: Dolores Gunn Electronically Signed By: QUENTIN NORMAN
--- NOTE | 2025-01-09 13:10 | ED.GENADULT ---
HPI - General Adult General Chief complaint: Arrhythmia/Palpitations Stated complaint: dizzy rapid heart beat Time Seen by Provider: 01/09/25 19:01 Source: patient Mode of arrival: ambulatory Limitations: no limitations History of Present Illness ED Provider: Roni COLORADO HPI narrative: The patient is a 44-year-old male with history of hypertension, hyperlipidemia, JONO, insomnia, and type 2 diabetes, recently taken off his medication by PCP due to good blood sugars and weight loss, presenting to the ED reporting he woke this morning feeling dizzy described as lightheadedness with associated mild nausea and racing heart palpitations. 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 Patient was noted to have some tachycardia at Occupational Health and was sent to the ED for evaluation. The patient denies any associated focal neurological deficit, spinning/vertiginous symptoms, tinnitus, chest pain, shortness of breath, abdominal pain, vomiting, diarrhea, fever/chills, recent sick contacts, or recent trauma. The patient reports worsening insomnia recently, reporting he has only been sleeping 4-5 hours a night even with the use of his CPAP for JONO. The patient is scheduled to see his sleep provider in January. Related Data Previous Rx's ?Medication ?Instructions ?Recorded amlodipine 5 mg tablet 5 mg PO DAILY #90 tabs 10/23/24 atorvastatin 10 mg tablet 10 mg PO DAILY #90 tabs 10/23/24 melatonin 5 mg capsule 5 mg PO BEDTIME #90 caps 10/23/24 venlafaxine 37.5 mg 37.5 mg PO DAILY #90 caps 11/03/24 capsule,extended release 24 hr amoxicillin 875 mg-potassium 1 tab PO Q12H #14 tabs 11/13/24 clavulanate 125 mg tablet Allergies Allergy/AdvReac Type Severity Reaction Status Date / Time No Known Allergies Allergy Verified 01/09/25 13:18 Review of Systems Review of Systems: Yes all other systems are reviewed and are negative [facility] Past Medical History Medical History (Updated 01/09/25 @ 20:16 by Roni Thacker PA-C) Type 2 diabetes mellitus Insomnia Morbid obesity Obstructive sleep apnea Acid reflux Hypercholesteremia HTN (hypertension) Surgical History No pertinent past surgical history Family History Family History (Updated 10/23/24 @ 11:10 by Rabia Bay MA) Father CAD (coronary artery disease) Mother Hypertension Sister Multiple sclerosis Social History Social History Housing: House Alcohol intake: current Alcohol intake frequency: holidays/special occasions only Alcohol type: beer Patient Tobacco Use Status: Never used Tobacco Smoked in Last 30 Days: No Use of substances other than those prescribed or required for medical reasons: No Advance Directives: No Advance Directives Information Provided: No Do you have a plan to hurt others: No Plan service: No Current occupational status: employed Cognitive needs: No Hearing needs: No Vision needs: No Physical Exam ED Vital Signs: Vital Signs - 24 hr 01/09/25 13:14 01/09/25 16:30 01/09/25 18:09 Temperature 98.4 F 98.1 F 97.1 F Pulse Rate 106 H 79 73 Respiratory Rate 18 14 16 Blood Pressure 152/87 H 172/97 H 136/77 Pulse Oximetry 98 97 96 Oxygen Delivery Method Room Air Room Air Room Air 01/09/25 19:59 Temperature 97.9 F Pulse Rate 66 Respiratory Rate 18 Blood Pressure 128/104 H Pulse Oximetry 97 Oxygen Delivery Method Room Air BMI result Body Mass Index 43.1 CONSTITUTIONAL: The patient appears non-toxic, well nourished and in no acute distress. Vital signs as documented. HEAD: Atraumatic, normocephalic. EYES: EOMs intact, pupils equal, round, and reactive to light, conjunctiva clear, no exudate. ENT: Nares patent, no discharge. Airway patent, no audible stridor, visible mucosa is pink and moist without noted lesions. NECK: Trachea is midline, no obvious masses or gross abnormalities. CHEST: Symmetric movement, normal appearance. LUNGS: LS present and CTAB, no w/r/r. Non-labored work of breathing. CARDIAC: Regular Rhythm, S1/S2 appreciated, no murmurs, rubs or gallops. ABDOMEN: Abdomen soft and non-tender x4 quadrants, no palpable masses or organomegaly. : Deferred. EXTREMITIES: Normal tone, moves all extremities spontaneously without reported pain. No obvious acute injury or deformity noted. NEURO: Alert and oriented x3, CN II-XII intact. Cerebellar Functioning intact. Strength 5/5 x4, No sensory deficits. Speech clear and appropriate. PSYCH: normal affect, appropriate eye contact, fluid speech, with appropriate response to questioning. No reported suicidality or homicidality. SKIN: Warm, dry, color appropriate, normal turgor. No rashes noted. Course Course Course Narrative: 01/09/25 1311 MIROSLAVA Kearns This is a Rapid Medical Examination (RME) performed by Sarita Gunn PA-C in triage. Full HPI, ROS, assessment and treatment plan per primary provider in the Main ED. Hx: 44 yo M hx of HTN, HLD, GERD, JONO, insomnia, morbid obesity here for eval of dizziness, nausea, vomiting, neck stiffness, palpitations since waking this morning around 0700. no chest pain. feels off balance. blood sugar was around 126 this morning. PE/vitals: well appearing, tachycardic. Plan: labs, ekg, viral swabs Medications Administered Discontinued Medications Generic Name Dose Route Start Last Admin Trade Name Freq PRN Reason Stop Dose Admin Acetaminophen 975 mg 01/09/25 18:12 01/09/25 18:15 Acetaminophen 325 Mg Tablet PO 01/09/25 18:13 975 mg ONCE ONE Administration Medical Decision Making Medical Decision Making [facility] Narrative: 7:45 PM 01/09/2025 (Sarita [place]ORADO): The patient is a 44-year-old male presenting to the ED for evaluation of dizziness described as lightheadedness with associated racing or palpitations and nausea without associated vomiting which began this morning upon waking. Patient was able to work through his symptoms for the majority of his work day, then reported symptoms to his employer who sent him to Occupational Health within referred the patient here for racing or palpitations. The patient reports symptoms have improved since arriving in the ED. patient's exam is benign, no focal neurological deficit, patient is afebrile, vital signs are reassuring, EKG is nonischemic, initial troponin is negative, laboratory evaluation reveals no leukocytosis, anemia, electrolyte abnormality, or TAM. The patient's TSH is within normal limits. The patient is PERC negative. Given the patient's improvement in symptoms since arriving in the ED, reassuring vital signs, exam, laboratory evaluation, an EKG, pending unremarkable 2nd troponin the patient will be appropriate for discharge with outpatient follow up with PCP. 8:12 PM 01/09/2025 (Sarita COLORADO): Repeat troponin is negative. Patient will be discharged to follow up with PCP. Admission/Observation Consideration of admission/observation: Escalation of care including admission/observation considered Lab Data MDM Lab Attestation statement: I reviewed the patient's lab results. 01/09/25 13:31 01/09/25 13:31 Labs: Lab Results 01/09/25 01/09/25 01/09/25 Range/Units 13:31 15:51 19:44 WBC 10.4 (4.8-10.8) X10*3/uL RBC 4.64 (4.60-5.80) X10*6/uL Hgb 14.7 (14.0-18.0) g/dl Hct 40.8 L (42.0-52.0) % MCV 87.9 (80.0-98.0) fL MCH 31.7 (27.0-33.0) pg MCHC 36.0 (31.0-36.0) g/dl RDW 13.2 (11.0-16.0) % Plt Count 172 (160-400) X10*3/uL MPV 8.9 L (9.4-12.4) fL Immature Gran % (Auto) 0.4 (0.0-0.4) % Neut % (Auto) 84.4 H (45-73) % Lymph % (Auto) 7.0 L (20-40) % Randolph % (Auto) 7.2 (2-11) % Eos % (Auto) 0.8 (0-4) % Baso % (Auto) 0.2 (0-2) % Lymph # (Auto) 0.7 L (1.2-4.9) X10*3/uL Randolph # (Auto) 0.8 (0.1-1.2) X10*3/uL Eos # (Auto) 0.1 (0.0-0.4) X10*3/uL Baso # (Auto) 0.0 (0.0-0.2) X10*3/uL Abs Immat Gran (auto) 0.04 H (0.00-0.03) X10*3/uL Absolute Neuts (auto) 8.8 H (2.0-8.3) x10*3/uL Absolute Nucleated RBC 0.000 (0.0-0.012) X10*3/uL Nucleated RBC % (auto) 0.0 (0.0-0.2) /100WBC Smear Tech's Comments VERIFIED Sodium 141 (135-145) mmol/L Potassium 3.4 (3.3-5.1) mmol/L Chloride 109 H (96-108) mmol/L Carbon Dioxide 26 (22-29) mmol/L Anion Gap 9 L (12-20) BUN 10 (9-16) mg/dL Creatinine 0.80 (0.5-1.4) mg/dL Estim Creat Clear Calc 139.8 Estimated GFR > 60 POC Glucose 97 (60-115) mg/dL Random Glucose 148 H (60-115) mg/dL Calcium 8.8 (8.4-10.2) mg/dL Magnesium 1.9 (1.6-2.6) mg/dL Total Bilirubin 0.5 (0.0-1.0) mg/dL AST 31 (5-37) U/L ALT 39 (0-40) U/L Alkaline Phosphatase 98 (39-117) U/L Troponin I High Sens 3.6 4.2 (<3.5-35.0) ng/L Total Protein 7.1 (6.5-8.0) g/dL Albumin 4.2 (3.5-5.0) g/dL TSH 0.54 (0.32-4.0) uIU/mL Influenza Type A (PCR) NEGATIVE (Negative) Influenza Type B (PCR) NEGATIVE (Negative) RSV RNA Qual (PCR) NEGATIVE (Negative) SARS-CoV-2 RNA (RT-PCR) NEGATIVE (Negative) Independent Interpretation I performed an independent interpretation of an: EKG (EKG shows sinus rhythm with a rate of 100, no evidence of acute ischemia, no ST elevation, no ectopy. QTC 433.) External Record Review External record reviewed: Outpatient record Discharge Plan Discharge Clinical Impression: Lightheadedness Patient Disposition: Home, Self-Care Instructions: Lightheadedness (ED), Dizziness (ED) Additional Instructions: Thank you for choosing [facility]'s Emergency Department for your care today. Thankfully your laboratory evaluation including cardiac enzymes, exam, and EKG today are all reassuring. Your neurologic exam shows no focal deficits concerning for stroke. At this time there is no evidence of a cardiac, neurologic, metabolic, infectious, or other emergent process causing your symptoms. There is no indication for admission to the hospital or continued ED observation, and it is safe to discharge you home. Please stay well hydrated and get plenty of rest. Please follow up with your sleep physician to discuss additional treatment options for your insomnia which may be contributing to your symptoms. Please continue taking all your current medications as prescribed. Please also follow up with your primary care physician for re-evaluation, additional management of your symptoms, and continued preventative care. If you do not have a primary care physician, please call the [facility] at [phone] to establish a new primary care physician. While waiting to establish your new primary care physician, you can call our Walk-in Care [facility] at [phone] for non-emergency needs. Please return to the emergency department if you develop a severe or sudden change in your symptoms, a fever over 100.4 that does not improve with Tylenol or Ibuprofen, recurrent vomiting, or any other new or worsening symptoms or concerns. Prescriptions: No Action venlafaxine 37.5 mg capsule,extended release 24hr 37.5 mg PO DAILY Qty: 90 1RF melatonin 5 mg capsule 5 mg PO BEDTIME Qty: 90 0RF amlodipine 5 mg tablet 5 mg PO DAILY Qty: 90 1RF atorvastatin 10 mg tablet 10 mg PO DAILY Qty: 90 1RF amoxicillin-pot clavulanate 875-125 mg tablet 1 tab PO Q12H Qty: 14 0RF Referrals: Tuyet Jeronimo PA [Primary Care Provider, Hospitalist] Print Language: Georgian
[2025-01-09 13:14] VITALS: BP 152/87; PULSE 106; RESP 18; TEMP 36.9; O2SAT 98; BMI 43.1
[2025-01-09 13:46] LABS: Hematocrit 40.8 % (42.0-52.0); Hemoglobin 14.7 g/dl (14.0-18.0); Imm Gran Abs Auto 0.04 X10*3/uL (0.00-0.03); Imm Gran Pct Auto 0.4 % (0.0-0.4); Lymphocytes Absolute Auto 0.7 X10*3/uL (1.2-4.9); MANUAL DIFF FLAG SCAN; Mean Corpuscular HGB Conc 36.0 g/dl (31.0-36.0); Mean Corpuscular Hemoglobin 31.7 pg (27.0-33.0); Mean Corpuscular Volume 87.9 fL (80.0-98.0); NRBC Abs Auto 0.000 X10*3/uL (0.0-0.012); NRBC Pct Auto 0.0 /100WBC (0.0-0.2); PLT CLUMP 1; Red Blood Count 4.64 X10*6/uL (4.60-5.80); SCAN SMEAR FLAG 1
[2025-01-09 14:01] LABS: Platelet Count 172 X10*3/uL (160-400); White Blood Count 10.4 X10*3/uL (4.8-10.8)
[2025-01-09 14:02] LABS: Alanine Aminotransferase 39 U/L (0-40); Albumin Level 4.2 g/dL (3.5-5.0); Alkaline Phosphatase 98 U/L (39-117); Anion Gap 9 (12-20); Aspartate Amino Transferase 31 U/L (5-37); Blood Urea Nitrogen 10 mg/dL (9-16); Calcium 8.8 mg/dL (8.4-10.2); Carbon Dioxide 26 mmol/L (22-29); Chloride 109 mmol/L (96-108); Creatinine Clr Calc Pharmacy 139.8; Estimated Glomerular Filt Rate > 60; Magnesium 1.9 mg/dL (1.6-2.6); Potassium 3.4 mmol/L (3.3-5.1); Sodium 141 mmol/L (135-145); Total Protein 7.1 g/dL (6.5-8.0)
[2025-01-09 14:03] LABS: Troponin-I High Sensitivity 3.6 ng/L (<3.5-35.0)
[2025-01-09 14:17] LABS: Resp Syncy Virus RNA Qual PCR NEGATIVE (Negative); SARS COV2 PCR INHOUSE NEGATIVE (Negative)
[2025-01-09 15:56] LABS: Glucose, Whole Blood 97 mg/dL (60-115)
[2025-01-09 16:30] VITALS: BP 172/97; PULSE 79; RESP 14; TEMP 36.7; O2SAT 97
--- OUTSIDE RECORDS SUMMARY | 2025-01-09 16:34 | XMS_ITS | Patient Health Record ---
Author Organization [facility] Address [address] [place] [address] Care Team Providers Care Food Clerk Name Role Phone David Iqbal MD Primary Care Provider Ynes Gomez Unavailable [phone] Allergies No Known Allergies Results Component Value [...] MG 1 tablet Orally O nce a day; Duration: 14 days 11/27/2024 Active amLODIPine Besylate 5 MG 1 tablet Orally Once a day; Duration: 30 day(s) Active Atorvastatin Calcium 10 MG 1 tablet Oral ly Once a day; Duration: 30 day(s) Active Ciclopirox Olamine 0.77 % APPLY TO AFFEC CORI AREA EXTERNALLY TWICE A DAY; Duration: 30 Active hydroCHLOROthiazide 25 MG 1 tablet in th e morning Orally Once a day; Duration: 30 day(s) Not-Taking LamISIL 250mg 1 tablet orally Once a day; Duration: 30 days 10/18/2023 Not-Taking Ammonium Lactate 12 % USE 1 APPLICATION EXTERNALLY TWICE A DAY 30 DAYS; Duration: 30 Not-Taking Cipro 500 MG 1 tablet Orally ever y 12 hrs; Duration: 7 days 08/30/2023 Not-Taking Augmentin 500-125 MG 1 tablet Orally melanie ry 12 hrs; Duration: 7 day(s) 08/30/2023 Not-Taking Ketoconazole 2 % 1 application Apply a thin layer to externally to feet, even between toes Twice a day; Duration: 30 days Active Social History Tobacco Use: [...] Problem Status W/U Status Risk Notes Problem Acquired hammer toe of left foot ([id number] ) Hammertoe of left foot (M20.42) Active confirmed Problem Type II diabetes mellitus without complication (670760816) Type 2 diabetes mellitus without complication, without long-term current use of insulin (E11.9) Active confirmed Vital Signs Blood pressure diastolic 70 mm Hg 11/27/2024 Height 5ft 8in in 11/27/2024 Blood pressure systolic 120 mm Hg 11/27/2024 Weight 265 lbs 11/27/2024 BMI 40.29 kg/m2 11/27/2024 Encounters Encounter Location Date Provider Diagnosis Kike Liu [address] [place] [address] [place] [address] 11/27/2024 Ynes Perez Tinea pedis of both feet B35.3 ; Type 2 diabetes mellitus without complication, without long-term current use of insulin E11.9 ; Toe pain, left M79.675 and Hammertoe of left foot M20.42 Kike Sancheziatroctaviano Liu [address] [place] [address] [place] [address] 11/27/2024 [facility] [place] [address] [place] [address] 12/05/2024 [facility] [address] [address] 12/07/2024 [facility] [address] [place] [phone] 12/28/2024 Ynes Parr Assessments Encounter Date Diagnosis (ICD Code) Assessment Notes Treatment Notes Treatment Clinical Notes Section Notes 11/27/2024 Type 2 diabetes mellitus without complication, without long-term current use of insulin (ICD-10 - E11.9) 11/27/2024 Tinea pedis of both feet (ICD-10 - B35.3) 11/27/2024 Toe pain, left (ICD-10 - M79.675) 11/27/2024 Hammertoe of left foot (ICD-10 - M20.42) Plan Of Treatment Pending Test Test Name Order Date *Liver Function Test (LFT) 10/11/2023 *Liver Function Test (LFT) 11/27/2024 Insurance Providers Payer Name Payer Address Payer Phone Subscriber Number Group Number Insured Name Patient Relationship to Insured Coverage Start Date Coverage End Date Blue Benefits [address] [address] [place] [address] [id number] Anjel Tracy Self - patient is the insured Medical (General) History Medical History History ICD Code Anxiety Back,Hip,and Knee pain Headaches/Migraines High blood pressure Arthritis Sleep apnea Diabetic Surgical History Surgery Date(Month/Year)
[2025-01-09 18:09] VITALS: BP 136/77; PULSE 73; RESP 16; TEMP 36.2; O2SAT 96
--- NOTE | 2025-01-09 18:16 | PC.NURSE ---
pt verbalizing increase in headache. neuros intact. one time dose of tylenol ordered/administered. effectiveness pending. pt continues to wait to be picked up by a provider at this time. otherwise vss and up to date. on RA w/o difficulty. no sob/wob noted. respirations even/unlabored. plan of care ongoing. call parham placed within reach.
[2025-01-09 19:59] VITALS: BP 128/104; PULSE 66; RESP 18; TEMP 36.6; O2SAT 97
[2025-01-09 20:09] LABS: Troponin-I High Sensitivity 4.2 ng/L (<3.5-35.0)
[2025-01-09 20:25] VITALS: BP 128/104; PULSE 66; RESP 18; TEMP 36.6; O2SAT 97
== END 2025-01-09 20:25 | disposition home or self-care (01) ==
PROVIDERS: Physician Assistant; Physician Assistant Medical; Emergency Provider Emergency Medicine; PCP Physician Assistant
DX: R42 Dizziness and giddiness (principal); R11.0 Nausea; R00.2 Palpitations; I10 Essential (primary) hypertension; E78.5 Hyperlipidemia, unspecified; E11.9 Type 2 diabetes mellitus without complications; Z03.818 Encounter for observation for suspected exposure to other biological agents ruled out
CPT/HCPCS: 36415; 80053; 82947; 83735; 84443; 84484; 85025; 87637; 93005; 99283; 99285

== ENCOUNTER → 2025-01-09 13:08 | Outpatient (BNV) | payer OTHER, SELFPAY | PROVIDERS: Emergency Provider Emergency Medicine; PCP Physician Assistant; Visit Provider Internal Medicine | DX: R94.31 Abnormal electrocardiogram [ECG] [EKG] (principal); R00.0 Tachycardia, unspecified | CPT/HCPCS: 93010 ==

== ENCOUNTER 2025-01-12 08:15 | Outpatient (AMB) | payer OTHER, SELFPAY ==
--- NOTE | 2025-01-11 16:05 | MHC.PC.OV ---
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 Required: No Accompanied by: Self / Same As Patient Allergies No Known Allergies Allergy (Verified 01/12/25 08:15) Medication List - Last Reconciled 01/12/25 by MIROSLAVA Hernandez amlodipine 5 mg PO DAILY atorvastatin 10 mg PO DAILY hydroxyzine HCl 25 - 50 mg (1 - 2 x 25 mg) PO BID PRN melatonin 5 mg PO BEDTIME trazodone 50 mg PO BEDTIME PRN venlafaxine ER 37.5 mg PO DAILY Tobacco use date assessed: 10/23/24 Dental Screening Dental Screen Date: 10/23/24 HPI HPI Comments History of Present Illness Details 44-year-old male with history of insomnia, anxiety, hyperlipidemia, hypertension presents to the office for ER evaluation. Woke up wednesday morning, felt lightheaded and got out of bed felt unbalanced and just felt off. Tried to make it through work, but very hot in the kitchen. Still felt dizzy. Has headache as well. POC that morning 126. Had eaten Work connection, BP slightly high and was having palpitations. Then sent to ED. All testing was unremarkable though BP was slightly high. Was still symptomatic but ultimately resolved. Tylenol for headache. Still with occ headaches, occasitional next stiffness. There were no focal neuro deficits. EKG was without any dysrhythmia. No orthostasis. He suspects this may be related to insomnia. He reports he only sleeps about 4 hours nightly which is always broken. He is not taking anything for insomnia. He also feels that stress may be contributing however does feel anxiety is more controlled with venlafaxine. He is compliant with CPAP. ROS: General: No fevers, malaise, unintentional weight loss HEENT: No blurred vision, diplopia. No sore throat, nasal congestion, rhinorrhea, sinus pain, ear pain Cardiovascular: No chest pain. See HPI Respiratory: No shortness of breath, wheezing, cough GI: No abdominal pain, nausea, vomiting, diarrhea, constipation, melena, hematochezia : No dysuria, hematuria, increased urinary frequency, decreased urinary output MSK: No myalgia, back pain Neuro: See HPI Psych: see hpi Skin: No rashes or lesions EXAM: Constitutional - Awake and Alert, No apparent distress Eyes - PERRL Cardiovascular - S1S2, RRR, No edema Respiratory - Normal lung expansion, Normal respiratory effort, No respiratory distress, CTA bilaterally Extremities - no calf tenderness bilaterally, no swelling Skin - Warm/Dry Neurological - Alert & oriented x3 Psychological - Appropriate affect [facility] Medical History (Updated 01/09/25 @ 20:16 by Roni Thacker PA-C) Type 2 diabetes mellitus Insomnia Morbid obesity Obstructive sleep apnea Acid reflux Hypercholesteremia HTN (hypertension) Surgical History No pertinent past surgical history Family History (Updated 10/23/24 @ 11:10 by Rabia Bay MA) Father CAD (coronary artery disease) Mother Hypertension Sister Multiple sclerosis Social History Housing: House Alcohol intake: current Alcohol intake frequency: holidays/special occasions only Alcohol type: beer Patient Tobacco Use Status: Never used Tobacco e-Cigarette/Vaping Use: Never Used service: No Current occupational status: employed Cognitive needs: No Hearing needs: No Vision needs: No Questionnaire Thrive Questionnaire Date Thrive assessed: 10/23/24 AUDIT C Alcohol Use Questionnaire (AUDIT-C) 1. How often do you have a drink containing alcohol?: Monthly or less 2. How many drinks containing alcohol do you have on a typical day when you are drinking?: 1 or 2 Total Score: 1 MURIEL-7 AMB Questionnaire MURIEL-7 Date MURIEL - 7 assessed: 10/23/24 Source: Developed by Drs. Nader Boland, Jewell Rodríguez, Antonio Hickman and colleagues, with an educational rachna from [employer]. Physical exam (Primary Care) Vital Signs: Last Vital Signs Temp 98.4 F 01/12/25 08:19 Pulse 74 01/12/25 08:19 Resp 16 01/12/25 08:19 BP 102/44 L 01/12/25 08:19 Pulse Ox 98 01/12/25 08:19 Oxygen Delivery Method Room Air 01/12/25 08:19 BMI result Body Mass Index 41.6 Tobacco/Smoking Status: Tobacco use Status Tobacco use date assessed 10/23/24 01/11/25 16:06 Patient Tobacco Use Status Never used Tobacco 01/11/25 16:06 e-Cigarette/Vaping Use Never Used 01/12/25 08:21 Thrive Assessment: Date of Thrive Assessment Date Thrive assessed 10/23/24 01/11/25 16:06 Coding Level of Care Code Est Pt Level 4 (18938) Diagnoses Depression with anxiety F41.8 Insomnia G47.00 Lightheadedness R42 Assessment & Plan Assessment & Plan (1) Depression with anxiety: Code(s): F41.8 - Other specified anxiety disorders Category: Medical Plan: Stable. Continue venlafaxine (2) Insomnia: Comment: Patient is stating that he he has difficulty in falling asleep and also in maintaining sleep above 4 hours. 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 He is happy with his new medical regimen including Effexor XR 37.5 daily, and lorazepam 0.5 mg at bedtime p.r.n. which he is not requiring to use every night. Code(s): G47.00 - Insomnia, unspecified Category: Medical Plan: Uncontrolled. Add trazodone 50 mg nightly. If no effect, can trial hydroxyzine. Advised consistent wake sleep cycle. (3) Lightheadedness: Code(s): R42 - Dizziness and giddiness Category: Medical Plan: Your notes reviewed including provider note, labs, EKG. Now resolved. Suspect this is related to persistent insomnia. No arrhythmias noted, vitals without any without any orthostasis or hypotension. Labs within normal limits. Trial meds as above. Plan Follow-up in the office as scheduled in 2 weeks Medications: New trazodone 50 mg PO BEDTIME PRN 30 tabs 0RF sleep hydroxyzine HCl 25 - 50 mg (1 - 2 x 25 mg) PO BID PRN 60 tabs 0RF itching Patient Instructions: Try trazodone 50-100mg nightly- 30 min window If no success try hydoxyzine
[2025-01-12 08:19] VITALS: BP 102/44; PULSE 74; RESP 16; TEMP 36.9; O2SAT 98; BMI 41.6
--- OUTSIDE RECORDS SUMMARY | 2025-01-12 08:19 | XMS_ITS | Patient Health Record ---
Author Organization [facility] Address [address] [place] [address] Care Team Providers Care Skidder Lever Operator Name Role Phone David Iqbal MD Primary Care Provider Ynes Gomez Unavailable [phone] Allergies No Known Allergies Results Component Value [...] Problem Acquired hammer toe of left foot ([id number] ) Hammertoe of left foot (M20.42) Active confirmed Problem Type II diabetes mellitus without complication (929692670) Type 2 diabetes mellitus without complication, without long-term current use of insulin (E11.9) Active confirmed Vital Signs Blood pressure diastolic 70 mm Hg 11/27/2024 Height 5ft 8in in 11/27/2024 Blood pressure systolic 120 mm Hg 11/27/2024 Weight 265 lbs 11/27/2024 BMI 40.29 kg/m2 11/27/2024 Encounters Encounter Location Date Provider Diagnosis Kike Liu [address] [place] [address] [place] [address] 11/27/2024 Ynes Perez Tinea pedis of both feet B35.3 ; Type 2 diabetes mellitus without complication, without long-term current use of insulin E11.9 ; Toe pain, left M79.675 and Hammertoe of left foot M20.42 Kike Sancheziatroctaviano Liu [address] [place] [address] [place] [address] 11/27/2024 [facility] [place] [address] [place] [address] 12/05/2024 [facility] [address] [address] 12/07/2024 [facility] [address] [place] [phone] 12/28/2024 Ynes Parr Assessments Encounter Date Diagnosis [...] Coverage End Date Blue Benefits [address] [address] [place] [address] [id number] Anjel Tracy Self - patient is the insured Medical (General) History Medical History History ICD Code Anxiety Back,Hip,and Knee pain Headaches/Migraines High blood pressure Arthritis Sleep apnea Diabetic Surgical History Surgery Date(Month/Year)
== END 2025-01-12 11:53 | disposition home or self-care (01) ==
LOC: HO.HMCHD 08:16
PROVIDERS: PCP Physician Assistant; Visit Provider Physician Assistant
DX: F41.8 Other specified anxiety disorders (principal); G47.00 Insomnia, unspecified; R42 Dizziness and giddiness

== ENCOUNTER 2025-03-05 08:22 | Outpatient (AMB) | payer OTHER, SELFPAY ==
--- OUTSIDE RECORDS SUMMARY | 2023-09-20 06:00 | XMS_ITS ---
Author Organization [facility] Address [address] [place] [address] Care Team Providers [employer] Gateman Name Role Phone David Iqbal MD Primary Care Provider Ynes Gomez [phone] Encounters Encounter Location Date Provider Diagnosis [address] [address] 09/20/2023 Ynes Perez Plan Of Treatment No Information Progress Notes * Anjel TRACY JDOB:1980 (44 yo M)Acc No.[id number]:09/20/2023 Progress Notes Patient: Michael PEREZ Anjel Ramachandran Provider: Marquita Perez DPM :1980 A ge:42 Y S ex:Male Date:09/20/2023 Address:[address] [place], [place] [id number] Pcp:David Iqbal MD Subjective: * Chief Complaints: * * Medical History: Objective: * Vitals: Assessment: Plan: * Treatment: * Images: * The named appointment provid er may or may not be the originator of this progress note, and it is not deemed complete until electronically signed by the appointment provider. Sign off status: Pending * Provider: Marquita Perez DPM Date: 0 09/20/2023 Generated for Homeri narayan/Ras/eTransmitting on: 0 03/05/2025 09:17 AM EDT
--- OUTSIDE RECORDS SUMMARY | 2025-01-01 10:45 | XMS_ITS ---
Author Organization [facility] Address [address] [place] [address] Care Team Providers Care Messenger Office Name Role Phone David Iqbal MD Primary Care Provider Ynes Gomez [phone] Encounters Encounter Location Date Provider Diagnosis [address] [address] 01/01/2025 Ynes Perez Plan Of Treatment No Information Progress Notes * Anjel TRACY JDOB:1980 (44 yo M)Acc No.[id number]:01/01/2025 Progress Note Patient: Joseph RANKINs J Provider: Marquita Perez DPM :1980 A ge:44 Y S ex:Male Date:01/01/2025 Address:[address] [place], [place] [id number] Pcp:David Iqbal MD Subjective: * Chief Complaints: * * Medical History: Objective: * Vitals: Assessment: Plan: * Treatment: * Images: * The named appointment provid er may or may not be the originator of this progress note, and it is not deemed complete until electronically signed by the appointment provider. Sign off status: Pending * Provider: Marquita Perez DPM Date: 0 01/01/2025 Generated for Luis Miguel busch/Ras/eTransmitting on: 03/05/2025 09:17 AM EDT
--- NOTE | 2025-03-05 08:31 | MHC.PC.OV ---
Vital Signs 03/05/25 08:32 Height 5 ft 5 in Weight 113.398 kg BMI 41.6 BP 140/82 H Pulse 78 Pulse Source Pulse Oximeter Temp 97.8 F Temp Source Temporal Artery Scan Pulse Oximetry (%) 99 Oxygen Delivery Method Room Air Intake Visit Reasons: 4 MONTH f/u - see comments Bead Preparer Required: No Accompanied by: Self / Same As Patient Allergies No Known Allergies Allergy (Verified 03/05/25 08:31) Medication List - Last Reconciled 03/05/25 by MIROSLAVA Hernandez amlodipine 5 mg PO DAILY atorvastatin 10 mg PO DAILY trazodone 50 mg PO BEDTIME PRN venlafaxine ER 37.5 mg PO DAILY Tobacco use date assessed: 10/23/24 Dental Screening Dental Screen Date: 10/23/24 HPI HPI Comments History of Present Illness Details 43 year old male with history of non insulin dependent type 2 diabetes, htn, JONO, hld, and morbid obesity presented to the office for routine follow up. Type 2 diabetes-due for A1c. Last A1c 6.1%. Diet-controlled. Eye exam is up-to-date Hypertension-controlled but low normal at 102/44. On amlodipine 5 mg daily Hyperlipidemia-last LDL 73. On atorvastatin 10 mg daily Depression-on venlafaxine 37.5 mg, trazodone 50 mg daily. Reports sleeping 9-10 hours and feels rested in the morning. JONO-continue CPAP Morbid obesity-continues with healthy diet as well as cardio. Occasionally pushups but no other weight training/resistance. Despite healthy diet has not lost any weight. Concerns: None Health maintenance: Screening colonoscopies to started age 45 ROS: General: No fevers, malaise, unintentional weight loss HEENT: No blurred vision, diplopia. No sore throat, nasal congestion, rhinorrhea, sinus pain, ear pain Cardiovascular: No chest pain, palpitations, or leg edema Respiratory: No shortness of breath, wheezing, cough GI: No abdominal pain, nausea, vomiting, diarrhea, constipation, melena, hematochezia : No dysuria, hematuria, increased urinary frequency, decreased urinary output MSK: No myalgia, back pain Neuro: No headaches, weakness, paresthesias Skin: No rashes or lesions EXAM: Constitutional - Awake and Alert, No apparent distress Eyes - PERRL Cardiovascular - S1S2, RRR, No edema Respiratory - Normal lung expansion, Normal respiratory effort, No respiratory distress, CTA bilaterally Extremities - no calf tenderness bilaterally, no swelling Skin - Warm/Dry Neurological - Alert & oriented x3 Psychological - Appropriate affect [facility] Medical History (Updated 01/09/25 @ 20:16 by Roni Thacker PA-C) Type 2 diabetes mellitus Insomnia Morbid obesity Obstructive sleep apnea Acid reflux Hypercholesteremia HTN (hypertension) Surgical History No pertinent past surgical history Family History (Updated 10/23/24 @ 11:10 by Rabia Bay MA) Father CAD (coronary artery disease) Mother Hypertension Sister Multiple sclerosis Social History Housing: House Alcohol intake: current Alcohol intake frequency: holidays/special occasions only Alcohol type: beer Patient Tobacco Use Status: Never used Tobacco e-Cigarette/Vaping Use: Never Used service: No Current occupational status: employed Cognitive needs: No Hearing needs: No Vision needs: No Questionnaire Thrive Questionnaire Date Thrive assessed: 10/23/24 MURIEL-7 AMB Questionnaire MURIEL-7 Date MURIEL - 7 assessed: 10/23/24 Source: Developed by Drs. Nader Boland, Jewell Rodríguez, Antonio Hickman and colleagues, with an educational rachna from CURRENT. Physical exam (Primary Care) Vital Signs: Last Vital Signs Temp 97.8 F 03/05/25 08:32 Pulse 78 03/05/25 08:32 BP 140/82 H 03/05/25 08:32 Pulse Ox 99 03/05/25 08:32 Oxygen Delivery Method Room Air 03/05/25 08:32 BMI result Body Mass Index 41.6 Tobacco/Smoking Status: Tobacco use Status Tobacco use date assessed 10/23/24 03/05/25 08:33 Patient Tobacco Use Status Never used Tobacco 03/05/25 08:33 e-Cigarette/Vaping Use Never Used 03/05/25 08:33 Thrive Assessment: Date of Thrive Assessment Date Thrive assessed 10/23/24 03/05/25 08:33 Coding Level of Care Code Est Pt Level 4 (53128) Complex EM visit Add On G2211 Diagnoses Type 2 diabetes mellitus E11.9 HTN (hypertension) I10 Obstructive sleep apnea G47.33 Morbid obesity E66.01 Hyperlipemia E78.5 Depression with anxiety F41.8 Assessment & Plan Assessment & Plan (1) Type 2 diabetes mellitus: Code(s): E11.9 - Type 2 diabetes mellitus without complications Category: Medical Plan: Controlled. Hemoglobin A1c ordered. Continue diabetic diet. Regular annual eye exams. We will also trial Mounjaro to help with control as well as weight loss. (2) HTN (hypertension): Code(s): I10 - Essential (primary) hypertension Category: Medical Plan: Blood pressure at goal. Continue amlodipine 5mg daily. Low sodium diet. (3) Obstructive sleep apnea: Comment: Severe ,as per his Sleep study on 11/2020, He is being treated with CPAP therapy and he is very compliant. Code(s): G47.33 - Obstructive sleep apnea (adult) (pediatric) Category: Medical Plan: Continue CPAP. Continue with weight loss efforts. (4) Morbid obesity: Comment: BMI= 44.4 down to 41.6 , he is gradually losing weight. Patient still remains morbidly obese, Code(s): E66.01 - Morbid (severe) obesity due to excess calories Category: Medical Plan: Continues with weight loss efforts, encouraged ongoing efforts. Recommended adding cardio activity in addition to his resistance training. Continue low-carbohydrate diet as well as avoidance of overly processed foods. Add Mounjaro (5) Hyperlipemia: Code(s): E78.5 - Hyperlipidemia, unspecified Category: Medical Plan: L lipid panel ordered Continue atorvastatin 10mg daily. Continue to recommend low fat diet and increased exercise (6) Depression with anxiety: Code(s): F41.8 - Other specified anxiety disorders Category: Medical Plan: Controlled. Question if depression/anxiety was negatively affected by his sleep issues which are now controlled. Continue trazodone. Trial off of venlafaxine. If needed, can resume Plan Continue medications as recommended. Follow up in 6 months. Labs to be completed today as well as prior to next appointment. Increase exercise- include both cardio and weight/resistance training. Follow up in 6 months. Orders: Orders Basic Metabolic Panel Today E11.9 - Type 2 diabetes mellitus without complications, E66.01 - Morbid (severe) obesity due to excess calories, E78.5 - Hyperlipidemia, unspecified, I10 - Essential (primary) hypertension Hemoglobin A1c Today E11.9 - Type 2 diabetes mellitus without complications, E66.01 - Morbid (severe) obesity due to excess calories, E78.5 - Hyperlipidemia, unspecified, I10 - Essential (primary) hypertension Lipid Panel Today E11.9 - Type 2 diabetes mellitus without complications, E66.01 - Morbid (severe) obesity due to excess calories, E78.5 - Hyperlipidemia, unspecified, I10 - Essential (primary) hypertension Basic Metabolic Panel 4 Months E11.9 - Type 2 diabetes mellitus without complications, E78.5 - Hyperlipidemia, unspecified, I10 - Essential (primary) hypertension Liver Panel 4 Months E11.9 - Type 2 diabetes mellitus without complications, E78.5 - Hyperlipidemia, unspecified, I10 - Essential (primary) hypertension Lipid Panel 4 Months E11.9 - Type 2 diabetes mellitus without complications, E78.5 - Hyperlipidemia, unspecified, I10 - Essential (primary) hypertension Hemoglobin A1c 4 Months E11.9 - Type 2 diabetes mellitus without complications, E78.5 - Hyperlipidemia, unspecified, I10 - Essential (primary) hypertension Medications: New tirzepatide (Mounjaro) for 4 weeks 2.5 mg (0.5 mL) subcut QWEEK 2 mL 0RF
[2025-03-05 08:32] VITALS: BP 140/82; PULSE 78; TEMP 36.6; O2SAT 99; BMI 41.6
--- OUTSIDE RECORDS SUMMARY | 2025-03-05 09:18 | XMS_ITS | Patient Health Record ---
Author Organization [facility] Address [address] [place] [address] Care Team Providers Care Culture Manager Name Role Phone David Iqbal MD Primary Care Provider Unavaila Ynes Ayers Unavailable [phone] Allergies No Known Allergies Results Component Value [...] Problem Acquired hammer toe of left foot ([id number] ) Hammertoe of left foot (M20.42) Active confirmed Problem Type II diabetes mellitus without complication (667593223) Type 2 diabetes mellitus without complication, without long-term current use of insulin (E11.9) Active confirmed Vital Signs Blood pressure diastolic 70 mm Hg 11/27/2024 Height 5ft 8in in 11/27/2024 Blood pressure systolic 120 mm Hg 11/27/2024 Weight 265 lbs 11/27/2024 BMI 40.29 kg/m2 11/27/2024 Encounters Encounter Location Date Provider Diagnosis Kike Liu [address] [place] [address] [place] [address] 11/27/2024 Ynes Perez Tinea pedis of both feet B35.3 ; Type 2 diabetes mellitus without complication, without long-term current use of insulin E11.9 ; Toe pain, left M79.675 and Hammertoe of left foot M20.42 Kike Sancheziatroctaviano Liu [address] [place] [address] [place] [address] 11/27/2024 [facility] [place] [address] [place] [address] 12/05/2024 [facility] [place] [address] [place] [phone] 12/07/2024 [facility] [address] [place] [phone] 12/28/2024 Ynes Keshav Assessments Encounter Date Diagnosis (ICD Code) Assessment [...] Coverage End Date [employer] Benefits [address] [address] [place] [address] [id number] Anjel Tracy Self - patient is the insured Medical (General) History Medical History History ICD Code Anxiety Back,Hip,and Knee pain Headaches/Migraines High blood pressure Arthritis Sleep apnea Diabetic Surgical History Surgery Date(Month/Year)
== END 2025-03-05 08:52 | disposition home or self-care (01) ==
LOC: HO.HMCHD 08:23
PROVIDERS: PCP Internal Medicine; Visit Provider Physician Assistant
DX: E11.9 Type 2 diabetes mellitus without complications (principal); I10 Essential (primary) hypertension; G47.33 Obstructive sleep apnea (adult) (pediatric); E66.01 Morbid (severe) obesity due to excess calories; E78.5 Hyperlipidemia, unspecified; F41.8 Other specified anxiety disorders

== ENCOUNTER 2025-03-05 09:40 | Outpatient (REF) | payer OTHER, SELFPAY ==
[2025-03-05 10:15] LABS: Hemoglobin A1C 181.0087 umol/L; Total Hemoglobin (HGBA1C) 4060.1632 umol/L
[2025-03-05 13:40] LABS: Anion Gap 11 (12-20); Blood Urea Nitrogen 11 mg/dL (9-16); Calcium 9.1 mg/dL (8.4-10.2); Carbon Dioxide 25 mmol/L (22-29); Chloride 107 mmol/L (96-108); Cholesterol 148 mg/dL (<200); Estimated Glomerular Filt Rate > 60; HDL Cholesterol 43 mg/dL (>40); Potassium 3.6 mmol/L (3.3-5.1); Sodium 139 mmol/L (135-145); Triglycerides 63 mg/dL (<150)
== END 2025-03-05 09:41 | disposition home or self-care (01) ==
LOC: HO.10HDL 09:40
PROVIDERS: Visit Provider Physician Assistant
DX: I10 Essential (primary) hypertension (principal); E78.2 Mixed hyperlipidemia; E11.9 Type 2 diabetes mellitus without complications; E66.01 Morbid (severe) obesity due to excess calories
CPT/HCPCS: 36415; 80048; 80061; 83036

== ENCOUNTER 2025-03-26 09:32 | Outpatient (AMB) | payer OTHER, SELFPAY ==
--- OUTSIDE RECORDS SUMMARY | 2025-01-01 10:45 | XMS_ITS ---
Author Organization [facility] Address [address] [place] [address] Care Team Providers Care Material Planner Name Role Phone David Iqbal MD Primary Care Provider Ynes Gomez [phone] Encounters Encounter Location Date Provider Diagnosis [address] [address] 01/01/2025 Ynes Perez Plan Of Treatment No Information Progress Notes * Anjel TRACY JDOB:1980 (44 yo M)Acc No.[id number]:01/01/2025 Progress Note Patient: Joseph RANKINs J Provider: Marquita Perez DPM :1980 A ge:44 Y S ex:Male Date:01/01/2025 Address:[address] [place], [place] [id number] Pcp:David Iqbal MD Subjective: * Chief Complaints: [...] 01/01/2025 Generated for Luis Miguel busch/Ras/eTransmitting on: 0 03/26/2025 10:22 AM EDT
[2025-03-26 09:39] VITALS: BP 130/82; PULSE 67; O2SAT 99; BMI 41.4
--- NOTE | 2025-03-26 09:39 | A.OFFVIS_ITS ---
Vital Signs 03/26/25 09:39 Height 5 ft 5 in Weight 249 lb BMI 41.4 BP 130/82 Blood Pressure Location Lt brachial Position Sitting Pulse 67 Pulse Source Pulse Oximeter Pulse Oximetry (%) 99 Oxygen Delivery Method Room Air Intake Visit Reasons: Obstructive sleep apnea Intake Note: pt is here for mary follow up and he states he would like a cool mist rather than a warm mist on cpap. Reliable DME. Chip Separator Required: No Windows Migration Technician: Windows Migration Technician offered & declined Allergies No Known Allergies Allergy (Verified 03/26/25 09:46) Medication List - Last Reconciled 03/26/25 by Behzad Moralez MD amlodipine 5 mg PO DAILY atorvastatin 10 mg PO DAILY tirzepatide (Mounjaro) 2.5 mg (0.5 mL) subcut QWEEK trazodone 50 mg PO BEDTIME PRN venlafaxine ER 37.5 mg PO DAILY PRN HPI HPI Obstructive sleep apnea: Details: THIS 44 YEARS OLD GENTLEMAN WITH MORBID OBESITY AND OBSTRUCTIVE SLEEP APNEA COMES HERE FOR. FOLLOW-UP AFTER 4 MONTHS HE USES HIS CPAP REGULARLY EVERY NIGHT. HE WAS HAVING PROBLEM IN FALLING ASLEEP AND THEN MAINTAINING THE SLEEP. RECENTLY STARTED ON TRAZODONE 50 MG AT BEDTIME AND THAT IS HELPING. COMPLAINS OF HUMIDIFICATION ISSUE. CHECKED AND IS HUMIDITY LEVEL IS AT 4 WE ARE GOING TO CUT DOWN TO 2 . HE JUST STARTED ON MOUNJARO THERAPY, AND HOPEFULLY WILL LOSE MORE WEIGHT. [facility] Medical History Type 2 diabetes mellitus Insomnia Morbid obesity Obstructive sleep apnea Acid reflux Hypercholesteremia HTN (hypertension) Surgical History No pertinent past surgical history Family History Father CAD (coronary artery disease) Mother Hypertension Sister Multiple sclerosis Social History Housing: House Alcohol intake: current Alcohol intake frequency: holidays/special occasions only Alcohol type: beer Patient Tobacco Use Status: Never used Tobacco e-Cigarette/Vaping Use: Never Used service: No Current occupational status: employed Cognitive needs: No Hearing needs: No Vision needs: No Review of Systems Const All systems reviewed & are unremarkable except as noted in HPI and below Eyes Reports no additional complaints ENT Reports no additional complaints Card Denies chest pain, Denies irregular heart rhythm and Reports leg edema (Improved after taking HCTZ) Resp Reports no additional complaints GI Reports heartburn (Controlled) Reports no additional complaints Musc Reports no additional complaints Skin/Breast Reports system reviewed and no additional complaints, except as documented Neuro Reports no additional complaints Endo Reports no additional complaints Darius/Lymph Reports no additional complaints Aller/Immun Reports no additional complaints Physical Exam Vital Signs: Last Vital Signs Pulse 67 03/26/25 09:39 BP 130/82 03/26/25 09:39 Pulse Ox 99 03/26/25 09:39 Oxygen Delivery Method Room Air 03/26/25 09:39 BMI result Body Mass Index 41.4 Const Other: This gentleman is morbidly obese with very round face, and short neck. General: comfortable, no acute distress, alert and awake Orientation/consciousness: patient oriented x3 HEENT Head: Yes normal to inspection General nose exam: No nasal polyps present and No nasal discharge present Face and sinus: Yes sinuses nontender Mouth: oropharynx abnormals (His chin is slightly regressed, tongue is convex, oropharynx crowded,MP-4) Throat: Yes posterior oropharynx normal Eyes General: appearance normal, both eyes and all related structures Neck Neck: Yes normal visual inspection, Yes no lymphadenopathy, Yes trachea midline, Yes no JVD and Yes other (Neck circumference 19 in) Thyroid: Thyroid normal Chest Chest palpation & inspection: normal inspection of the chest, normal palpation of entire chest wall and no tenderness Resp Effort & Inspection: normal respiratory effort Auscultation: clear to auscultation bilaterally, no crackles and no wheezes Percussion: percussion normal Cardio Palpation: normal PMI Rate: regular rate Rhythm: regular rhythm Heart sounds: no gallops and no murmurs Peripheral pulses: Peripheral pulses 2+ throughout GI Palpation (GI): Soft to palpation, nontender, No hepatosplenomegaly present and no masses Auscultation: normal bowel sounds Back/Spine/Pelvis Thoracic/Lumbar Spine: thoracic and lumbar spine normal to inspection Skin General skin exam: no rashes or lesions noted Neuro General: patient oriented x3 and no focal motor deficits Cranial nerves: Yes CN's II-XII intact bilaterally Extrem General: Yes normal to inspection, Yes no clubbing, cyanosis or edema and Yes no calf tenderness Psych Appearance: grossly normal and well kempt Speech and movement: Normal speech and movement present Results Reviewed Results Reviewed: COMPLIANCE REPORT FOR THE LAST MONTH IS REVIEWED. HE USED 27/30 NIGHTS, 90%. AVERAGE USE IT PER NIGHT 5 HOURS 49 MINUTES. THERE IS SOME AIR LEAK. RESIDUAL AHI 3.6 Assessment & Plan Assessment & Plan (1) Morbid obesity: Comment: BMI= 44.4 down to 41.4 , he is gradually losing weight. Patient still remains morbidly obese, recently started on Mounjaro Therapy . Code(s): E66.01 - Morbid (severe) obesity due to excess calories Category: Medical Plan: Again talked about his diet and need to do exercise. Encouraged to continue Mounjaro injections weekly (2) Obstructive sleep apnea: Comment: Severe ,as per his Sleep study on 11/2020, He is being treated with CPAP therapy and he is very compliant. Lately having some issue with the humidification. It is set at a high level., and when he has air leak during the night he feels a warm air heating his cheeks. Code(s): G47.33 - Obstructive sleep apnea (adult) (pediatric) Category: Medical Plan: We have down adjusted the humidification level 2 to. He is advised to try tightening the straps to minimize air leak (3) Insomnia: Comment: Patient is stating that he he has difficulty in falling asleep and also in maintaining sleep above 4 hours. 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 Currently started on trazodone 50 mg at bedtime. He is sleeping much better and is happy with this medicine. Effexor XR has been stopped. Code(s): G47.00 - Insomnia, unspecified Category: Medical Plan: Discussed about SLEEP HYGIENE MEASURES. Advised to continue trazodone 50 mg at bedtime. Coding Level of Care Code Est Pt Level 3 (73136) Diagnoses Morbid obesity E66.01 Obstructive sleep apnea G47.33 Insomnia G47.00
--- OUTSIDE RECORDS SUMMARY | 2025-03-26 10:22 | XMS_ITS | Patient Health Record ---
Author Organization [facility] Address [address] [place] [address] Care Team Providers Care Boat Dispatcher Name Role Phone David Iqbal MD Primary Care Provider Unavaila Ynes Ayers Unavailable [phone] Allergies No Known Allergies Results Component Value [...] Problem Acquired hammer toe of left foot ([id number] ) Hammertoe of left foot (M20.42) Active confirmed Problem Type II diabetes mellitus without complication (305215716) Type 2 diabetes mellitus without complication, without long-term current use of insulin (E11.9) Active confirmed Vital Signs Blood pressure diastolic 70 mm Hg 11/27/2024 Height 5ft 8in in 11/27/2024 Blood pressure systolic 120 mm Hg 11/27/2024 Weight 265 lbs 11/27/2024 BMI 40.29 kg/m2 11/27/2024 Encounters Encounter Location Date Provider Diagnosis Kike Liu [address] [place] [address] [place] [address] 11/27/2024 Ynes Perez Tinea pedis of both feet B35.3 ; Type 2 diabetes mellitus without complication, without long-term current use of insulin E11.9 ; Toe pain, left M79.675 and Hammertoe of left foot M20.42 Kike Sancheziatroctaviano Liu [address] [place] [address] [place] [address] 11/27/2024 [facility] [place] [address] [place] [address] 12/05/2024 [facility] [place] [address] [place] [phone] 12/07/2024 [facility] [address] [place] [phone] 12/28/2024 Ynes Keshav Assessments Encounter Date Diagnosis [...] Coverage End Date Blue Benefits [address] [address] [place] [address] [id number] Anjel Tracy Self - patient is the insured Medical (General) History Medical History History ICD Code Anxiety Back,Hip,and Knee pain Headaches/Migraines High blood pressure Arthritis Sleep apnea Diabetic Surgical History Surgery Date(Month/Year)
== END 2025-03-26 09:57 | disposition home or self-care (01) ==
LOC: HO.HPS 09:32
PROVIDERS: PCP Internal Medicine; Visit Provider Internal Medicine
DX: E66.01 Morbid (severe) obesity due to excess calories (principal); G47.33 Obstructive sleep apnea (adult) (pediatric); G47.00 Insomnia, unspecified
CPT/HCPCS: 99213